=== PATIENT | male | born 1955 | race Native Hawaiian/Other Pacific Islander ===

== ENCOUNTER 2017-01-13 08:58 | Inpatient (IN) | payer OTHER ==
[2017-01-13] MEDS ORDERED: MORPHINE SULFATE 4 MG INJ IV ONE (09:17)
[2017-01-13] MEDS ORDERED: Zofran 4 MG/2 ML VIAL IV ONE (09:17)
[2017-01-13] MEDS ORDERED: Sodium Chloride 0.9% 1000 ML 1,000 ML IV STA (09:17)
[2017-01-13] MEDS ORDERED: PROTONIX 40 MG IV IV ONE ×2 (09:17→09:38)
--- NOTE | 2017-01-13 09:31 | ERPHSYRPT ---
- History of Present Illness Time Seen by Provider: 01/13/17 09:00 Historian: patient Exam Limitations: no limitations Patient Subjective Stated Complaint: patient has been having abdominal pain for a week now some bnausea with it Triage Nursing Assessment: pt alert and orientedx3, pupils perrla3, lung sounds clear diminished, bowel sounds active x 4, tenderness on palpation to right side and center near umbilicus. Timing/Duration: week(s) (1) Activities at Onset: none Quality: cramping Abdominal Pain Onset Location: periumbilical Severity of Pain-Max: moderate Severity of Pain-Current: moderate Modifying Factors: Improves With: other (drinks 2 beers daily) Allergies/Adverse Reactions: No Known Drug Allergies Allergy (Verified 01/13/17 09:23) Home Medications: No Home Meds 01/13/17 [History] Hx Tetanus, Diphtheria Vaccination/Date Given: Yes Hx Influenza Vaccination/Date Given: No Hx Pneumococcal Vaccination/Date Given: No Immunizations Up to Date: Yes - Past Medical History Pertinent Past Medical History: Yes Respiratory History: Other - Past Surgical History Past Surgical History: Yes Gastrointestinal: Appendectomy Musculoskeletal: Orthopedic Surgery Other Surgical History: operation on rifght lung, bilateral knee surgeries - Social History Smoking Status: Current every day smoker Drug Use: marijuana - Nursing Vital Signs Nursing Vital Signs: Initial Vital Signs Temperature 97.5 F Temperature Source Oral Pulse Rate 73 Respiratory Rate 18 Blood Pressure [] 135/75 Pain Intensity 2 - Physical Exam SpO2: 98 Oxygen Delivery: Room Air - Course Nursing assessment & vital signs reviewed: Yes - CT Exams Abdomen/Pelvis CT Interpretation: Tele-radiologist Report, Other (Mild fluid distention small bowel loops with circumferential wall thickening favoring enteritis. 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 Incidental COPD and chong L5 spondylolysis.) Ordered Tests: Active Orders 24 hr Category Date Time Status ACCUCHECK [Accucheck] STAT Care 01/13/17 10:29 Active IV Insertion STAT Care 01/13/17 09:17 Active NPO (ED) STAT Care 01/13/17 09:17 Active ABDOMEN AND PELVIS W CONTRAST [CT] Stat Exams 01/13/17 09:18 Completed CBC W DIFF Stat Lab 01/13/17 09:30 Completed CMP Stat Lab 01/13/17 09:30 Completed LIPASE Stat Lab 01/13/17 09:30 Completed PROTIME WITH INR Stat Lab 01/13/17 09:30 Completed UA Stat Lab 01/13/17 09:20 Completed Medication Summary Generic Name Dose Route Start Last Admin Trade Name Rigo PRN Reason Stop Dose Admin Meropenem 1 g/ Sodium Chloride 100 mls @ 200 mls/hr 01/13/17 11:59 IV 01/13/17 12:28 STAT ONE Discontinued Medications Generic Name Dose Route Start Last Admin Trade Name Rigo PRN Reason Stop Dose Admin Dextrose 25 ml 01/13/17 10:31 01/13/17 10:33 D50w 50 Ml Abboject IV 01/13/17 10:32 25 ml STAT ONE Administration Dextrose Confirm 01/13/17 10:33 D50w 50 Ml Abboject Administered 01/13/17 10:34 Dose 50 ml IV .STK-MED ONE Sodium Chloride 1,000 mls @ 999 mls/hr 01/13/17 09:17 01/13/17 09:42 Sodium Chloride 0.9% 1000 Ml IV 01/13/17 10:17 999 mls/hr .Q1H1M STA Administration Sodium Chloride Confirm 01/13/17 09:38 Sodium Chloride 0.9% 1000 Ml Administered 01/13/17 09:39 Dose 1,000 mls @ ud .ROUTE .STK-MED ONE Morphine Sulfate 4 mg 01/13/17 09:17 01/13/17 09:42 Morphine Sulfate 4 Mg Inj IV 01/13/17 09:18 4 mg STAT ONE Administration Morphine Sulfate Confirm 01/13/17 09:38 Morphine Sulfate 4 Mg Inj Administered 01/13/17 09:39 Dose 4 mg .ROUTE .STK-MED ONE Ondansetron HCl 4 mg 01/13/17 09:17 01/13/17 09:43 Zofran 4 Mg/2 Ml Vial IV 01/13/17 09:18 4 mg STAT ONE Administration Ondansetron HCl Confirm 01/13/17 09:38 Zofran 4 Mg/2 Ml Vial Administered 01/13/17 09:39 Dose 4 mg .ROUTE .STK-MED ONE Pantoprazole Sodium 40 mg 01/13/17 09:17 01/13/17 09:43 Protonix 40 Mg Iv IV 01/13/17 09:18 40 mg STAT ONE Administration Pantoprazole Sodium Confirm 01/13/17 09:38 Protonix 40 Mg Iv Administered 01/13/17 09:39 Dose 40 mg IV .STK-MED ONE Lab/Rad Data: Laboratory Result Diagrams 01/13/17 09:30 01/13/17 09:30 Laboratory Results 01/13/17 01/13/17 01/13/17 Range/Units 09:30 09:30 09:30 WBC 7.5 (4.0-10.5) K/mm3 RBC 4.97 (4.1-5.6) M/mm3 Hgb 15.5 (12.5-18.0) gm/dl Hct 46.8 (42-50) % MCV 94.2 (78-100) fl MCH 31.2 (26-32) pg MCHC 33.1 (32-36) g/dl RDW 13.8 (11.5-14.0) % Plt Count 217 (150-450) K/mm3 MPV 11.6 H (6-9.5) fl Gran % 49.6 (36.0-66.0) % Lymphocytes % 33.4 (24.0-44.0) % Monocytes % 13.4 H (0.0-12.0) % Eosinophils % 2.3 (0.00-5.0) % Basophils % 1.3 (0.0-0.4) % Basophils # 0.10 (0-0.4) INR 0.99 (0.8-3.0) Sodium 138 (136-145) mEq/L Potassium 4.3 (3.5-5.1) mEq/L Chloride 102 (98-107) mEq/L Carbon Dioxide 28.6 (21-32) mEq/L Anion Gap 12.1 (5-15) MEQ/L BUN 10 (9-20) mg/dL Creatinine 1.05 (0.55-1.30) mg/dl Estimated GFR > 60 ML/MIN Glucose 66 L (70-110) MG/DL Calcium 8.8 (8.5-10.1) mg/dL Total Bilirubin 0.4 (0.2-1.0) mg/dL AST 23 (15-37) U/L ALT 21 (12-78) U/L Alkaline Phosphatase 67 (46-116) U/L Serum Total Protein 7.6 (6.4-8.2) gm/dL Albumin 3.8 (3.4-5.0) g/dL Lipase 90 (73-393) U/L Ur Collection Type Urine Color (YELLOW) Urine Appearance (CLEAR) Urine pH (5-6) Ur Specific [place] (1.005-1.025) Urine Protein (Negative) Urine Glucose (UA) (NEGATIVE) mg/dL Urine Ketones (NEGATIVE) Urine Nitrite (NEGATIVE) Urine Bilirubin (NEGATIVE) Urine Urobilinogen (0-1) mg/dL Urine WBC (Auto) (NEGATIVE) Urine RBC (Auto) (0-5) Lee/ul Specimen Received 01/13/17 Range/Units 09:20 WBC (4.0-10.5) K/mm3 RBC (4.1-5.6) M/mm3 Hgb (12.5-18.0) gm/dl Hct (42-50) % MCV (78-100) fl MCH (26-32) pg MCHC (32-36) g/dl RDW (11.5-14.0) % Plt Count (150-450) K/mm3 MPV (6-9.5) fl Gran % (36.0-66.0) % Lymphocytes % (24.0-44.0) % Monocytes % (0.0-12.0) % Eosinophils % (0.00-5.0) % Basophils % (0.0-0.4) % Basophils # (0-0.4) INR (0.8-3.0) Sodium (136-145) mEq/L Potassium (3.5-5.1) mEq/L Chloride (98-107) mEq/L Carbon Dioxide (21-32) mEq/L Anion Gap (5-15) MEQ/L BUN (9-20) mg/dL Creatinine (0.55-1.30) mg/dl Estimated GFR ML/MIN Glucose (70-110) MG/DL Calcium (8.5-10.1) mg/dL Total Bilirubin (0.2-1.0) mg/dL AST (15-37) U/L ALT (12-78) U/L Alkaline Phosphatase (46-116) U/L Serum Total Protein (6.4-8.2) gm/dL Albumin (3.4-5.0) g/dL Lipase (73-393) U/L Ur Collection Type VOID Urine Color YELLOW (YELLOW) Urine Appearance CLEAR (CLEAR) Urine pH 5.0 (5-6) Ur Specific [place] 1.020 (1.005-1.025) Urine Protein NEGATIVE (Negative) Urine Glucose (UA) NEGATIVE (NEGATIVE) mg/dL Urine Ketones NEGATIVE (NEGATIVE) Urine Nitrite NEGATIVE (NEGATIVE) Urine Bilirubin NEGATIVE (NEGATIVE) Urine Urobilinogen 0.2 (0-1) mg/dL Urine WBC (Auto) NEGATIVE (NEGATIVE) Urine RBC (Auto) NEGATIVE (0-5) Lee/ul Specimen Received 01/13/17 0920 - Progress Progress: improved Discussed with : Manuel Fried (Consult placed. He will see him in am.) Will see patient in: hospital (full admit) Counseled pt/family regarding: lab results, diagnosis, need for follow-up, rad results - Departure Time of Disposition: 12:00 Departure Disposition: In-patient Admission Clinical Impression: Enteritis Condition: Stable Critical Care Time: Yes Critical Care Time(excluding separately billable procedures): 75-104 minutes
[2017-01-13 09:37] LABS: BASOPHIL % 1.3 % (0.0-0.4); Eosinophil % 2.3 % (0.00-5.0); Granulocytes % 49.6 % (36.0-66.0); Lymphocytes % 33.4 % (24.0-44.0); Mean Cell Volume 94.2 fl (78-100); Mean Corpuscular Hemoglobin 31.2 pg (26-32); Mean Platelet Volume 11.6 fl (6-9.5); Monocytes % 13.4 % (0.0-12.0); Platelet Count 217 K/mm3 (150-450); Red Blood Count 4.97 M/mm3 (4.1-5.6); Red Cell Distribution Width 13.8 % (11.5-14.0); White Blood Count 7.5 K/mm3 (4.0-10.5)
[2017-01-13 09:38] LABS: Collection Type VOID
[2017-01-13] MEDS ORDERED: MORPHINE SULFATE 4 MG INJ ONE (09:38)
[2017-01-13] MEDS ORDERED: Zofran 4 MG/2 ML VIAL ONE (09:38)
[2017-01-13] MEDS ORDERED: Sodium Chloride 0.9% 1000 ML 1,000 ML ONE (09:38)
[2017-01-13 09:39] LABS: COMPLETE URINE MICROSCOPIC? NO
[2017-01-13 09:55] LABS: INR 0.99 (0.8-3.0); PROTIME 11.1 SECONDS (8.83-12.87)
[2017-01-13 10:06] LABS: ALBUMIN 3.8 g/dL (3.4-5.0); ALKALINE PHOSPHATASE 67 U/L (46-116); ANION GAP 12.1 MEQ/L (5-15); BILIRUBIN,TOTAL 0.4 mg/dL (0.2-1.0); BLOOD UREA NITROGEN 10 mg/dL (9-20); CHLORIDE 102 mEq/L (98-107); Carbon Dioxide 28.6 mEq/L (21-32); Glucose 66 MG/DL (70-110); LIPASE 90 U/L (73-393); Potassium 4.3 mEq/L (3.5-5.1); SGOT/AST 23 U/L (15-37); SGPT/ALT 21 U/L (12-78); SODIUM 138 mEq/L (136-145); Total Protein 7.6 gm/dL (6.4-8.2)
[2017-01-13] MEDS ORDERED: D50W 50 ml Abboject IV ONE ×2 (10:31→10:33)
--- NOTE | 2017-01-13 11:26 | XRAY ---
Indication: Periumbilical pain and nausea for 5 days. Multiple contiguous axial images obtained through the abdomen and pelvis using 80 cc Isovue 370 contrast only. Comparison: None Lung bases demonstrates mild centrilobular emphysema bilaterally and left base dependent atelectasis. No consolidation or effusion. Heart is not enlarged. Noncontrasted stomach and bowel loops appear nonobstructed. Mild fluid distended small bowel loops throughout. Several of the small bowel loops in the left abdomen demonstrates circumferential wall thickening/enhancement. Findings favor enteritis. No free fluid/air. In the distal transverse duodenum, there is a intraluminal lipoma measuring at least 2.5 cm in length and 1 cm in thickness. Minimal sigmoid diverticulosis. Previous reported appendectomy. Remaining liver, gallbladder, pancreas, spleen, adrenal glands, kidneys, ureters, and bladder appear unremarkable. Mild aortoiliac calcifications. No AAA or pathologic retroperitoneal lymphadenopathy. Osseous structures intact with mild degenerative changes throughout the spine. Bilateral L5 spondylolysis without spondylolisthesis. Impression: 1. Mild fluid distended small bowel loops with circumferential wall thickening/enhancement favoring enteritis. Minimal sigmoid diverticulosis. 2. 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 3. Incidental pulmonary emphysema and bilateral L5 spondylolysis without spondylolisthesis. CT DI 11.57
[2017-01-13] MEDS ORDERED: Merrem 1 GM 1 G in Sodium Chloride 100ML MINI-BAG PLUS 100 ML IV ONE (11:59)
[2017-01-13] MEDS ORDERED: Zofran 4 MG/2 ML VIAL IV PRN (12:07)
[2017-01-13] MEDS ORDERED: MORPHINE SULFATE 2 MG INJ IV PRN (12:07)
[2017-01-13] MEDS ORDERED: Merrem 1 GM IV ONE (12:17)
[2017-01-13] MEDS ORDERED: Sodium Chloride 0.9% 100 ML IVPB 100 ML IV ONE (12:17)
[2017-01-13] MEDS: Sodium Chloride 0.9% 1000 ML 1,000 ML IV SCH ×2 (12:56→22:02)
--- NOTE | 2017-01-13 13:06 | PCM.HP ---
History of Present Illness - Chief Complaint Chief Complaint: Enteritis History of Present Illness: is a 61 year old male with no local physician who reported to the ER complaining of a 5 days history of worsening low abdominal pain. He denies vomiting or diarrhea, last bowel movement was yesterday and normal. He is unemployed, recently moved to the area from [place] and drinks about 2 beers daily. There has been no blood in the stool, he was found to have enteritis changes on CT in the ER but is quite concerned about being allowed to eat something. - Review of Systems Constitutional: No Fever, No Chills Respiratory: No Cough, No Short Of Breath Cardiac: No Chest Pain, No Edema, No Syncope Abdominal/Gastrointestinal: Abdominal Pain, No Nausea, No Vomiting, No Diarrhea Genitourinary Symptoms: No Dysuria Skin: No Rash All Other Systems: Reviewed and Negative Medications & Allergies Home Medications: Home Medication List No Home Meds 0 mg PO DAILY 01/13/17 [History Confirmed 01/13/17] Allergies/Adverse Reactions: Allergies Allergy/AdvReac Type Severity Reaction Status Date / Time No Known Drug Allergies Allergy Verified 01/13/17 09:23 - Past Medical History Past Medical History: Yes Neurological History: No Pertinent History ENT History: No Pertinent History Cardiac History: No Pertinent History Respiratory History: Other Endocrine Medical History: No Pertinent History Musculoskelatal History: No Pertinent History GI Medical History: No Pertinent History History: No Pertinent History Pyscho-Social History: No Pertinent History Male Reproductive Disorders: No Pertinent History - Past Surgical History Past Surgical History: Yes Neuro Surgical History: No Pertinent History Cardiac History: No Pertinent History Respiratory Surgery: No Pertinent History GI Surgical History: Appendectomy Genitourinary Surgical Hx: No Pertinent History Musculskeletal Surgical Hx: Orthopedic Surgery Male Surgical History: No Pertinent History Other Surgical History: operation on right lung, bilateral knee surgeries - Social History Smoking Status: Current every day smoker Alcohol: Daily Drug Use: marijuana - Physical Exam Vital Signs: Vital Signs - 24 hr Temp Pulse Resp BP Pulse Ox 01/13/17 12:06 98 01/13/17 11:59 73 18 135/75 97 01/13/17 11:34 76 18 144/76 96 01/13/17 09:49 78 20 130/69 96 01/13/17 08:59 97.5 F 90 20 153/80 98 General Appearance: no apparent distress, alert Respiratory Exam: normal breath sounds, lungs clear, No respiratory distress Cardiovascular Exam: regular rate/rhythm, normal heart sounds, normal peripheral pulses Gastrointestinal/Abdomen Exam: normal bowel sounds, tenderness (minimal to low abdomen), No guarding, No rebound Extremity Exam: normal inspection, normal range of motion, pelvis stable Skin Exam: normal color, warm, dry, No rash Assessment/Plan (1) Enteritis Current Visit: Yes Status: Acute Assessment & Plan: bland diet, received meropenem in ER, will observe. has a nonfocal exam. has a nonsurgical abdomen at this time. recommend conservative measures. no need for surgery consult at this time after examination by me in ER prior to going to floor. Code(s): K52.9 - NONINFECTIVE GASTROENTERITIS AND COLITIS, UNSPECIFIED (2) Abdominal pain Current Visit: Yes Status: Acute Code(s): R10.9 - UNSPECIFIED ABDOMINAL PAIN
[2017-01-13] MEDS: MORPHINE SULFATE 10 MG/ML IV PRN (19:47)
[2017-01-13] MEDS: Merrem 1 GM 1 G in Sodium Chloride 100ML MINI-BAG PLUS 100 ML IV SCH (21:58)
[2017-01-13] MEDS ORDERED: Ambien 10 MG PO SCH (22:00)
[2017-01-14 04:19] VITALS: O2SAT 93
[2017-01-14] MEDS: MORPHINE SULFATE 10 MG/ML IV PRN (04:37)
[2017-01-14] MEDS: Merrem 1 GM 1 G in Sodium Chloride 100ML MINI-BAG PLUS 100 ML IV SCH (05:25)
[2017-01-14 05:59] LABS: BASOPHIL % 0.6 % (0.0-0.4); Eosinophil % 3.8 % (0.00-5.0); Granulocytes % 51.1 % (36.0-66.0); Lymphocytes % 32.8 % (24.0-44.0); Mean Corpuscular Hemoglobin 31.1 pg (26-32); Mean Platelet Volume 11.9 fl (6-9.5); Monocytes % 11.7 % (0.0-12.0); Platelet Count 203 K/mm3 (150-450); Red Cell Distribution Width 13.8 % (11.5-14.0); White Blood Count 8.6 K/mm3 (4.0-10.5)
[2017-01-14 06:45] LABS: ALBUMIN 3.1 g/dL (3.4-5.0); ALKALINE PHOSPHATASE 49 U/L (46-116); ANION GAP 12.3 MEQ/L (5-15); BILIRUBIN,TOTAL 0.4 mg/dL (0.2-1.0); BLOOD UREA NITROGEN 11 mg/dL (9-20); CHLORIDE 105 mEq/L (98-107); Carbon Dioxide 26.5 mEq/L (21-32); Glucose 98 MG/DL (70-110); Potassium 4.2 mEq/L (3.5-5.1); SGOT/AST 19 U/L (15-37); SGPT/ALT 16 U/L (12-78); SODIUM 140 mEq/L (136-145); Total Protein 6.2 gm/dL (6.4-8.2)
[2017-01-14 07:14] VITALS: BP 164/72; PULSE 65
--- NOTE | 2017-01-14 08:22 | PCM.DS ---
Discharge Summary Date of Admission: 01/13/17 12:35 Admitting Physician: KAYLIN PANCHAL Consults: Consults on Case 01/13/17 12:07 Consult Surgery ROUTINE 01/13/17 13:37 Consult Surgery ROUTINE Primary Care Provider: NO FAMILY DOCTOR Allergies Allergies No Known Drug Allergies Allergy (Verified 01/13/17 09:23) Hospital Summary - Hospital Course Hospital Course: patient was admitted with low abdominal pain, vomiting x 1. ct showed enteritis , symptoms quickly have resolved. he is tolerating po intake, no vomiting or diarrhea. no pain - Vitals & Intake/Output Vital Signs: Vital Signs Temperature 97.8 F 01/14/17 07:14 Pulse Rate 65 01/14/17 07:14 Respiratory Rate 20 01/14/17 07:14 Blood Pressure 164/72 01/14/17 07:14 O2 Sat by Pulse Oximetry 93 L 01/14/17 07:14 Intake & Output: Intake & Output 01/11/17 01/12/17 01/13/17 01/14/17 11:59 11:59 11:59 11:59 Intake Total 2556 Balance 2556 Weight 68.946 kg - Lab Result Diagrams: 01/14/17 05:37 01/14/17 05:37 Lab Results-Last 24 Hrs: Accuchecks Date 01/13/17 Time 18:39 Accucheck Value: 138 Accucheck Value: 110 Lab Results-Last 24 Hours 01/14/17 01/14/17 Range/Units 05:37 05:37 WBC 8.6 (4.0-10.5) K/mm3 RBC 4.60 (4.1-5.6) M/mm3 Hgb 14.3 (12.5-18.0) gm/dl Hct 43.7 (42-50) % MCV 95.0 (78-100) fl MCH 31.1 (26-32) pg MCHC 32.7 (32-36) g/dl RDW 13.8 (11.5-14.0) % Plt Count 203 (150-450) K/mm3 MPV 11.9 H (6-9.5) fl Gran % 51.1 (36.0-66.0) % Lymphocytes % 32.8 (24.0-44.0) % Monocytes % 11.7 (0.0-12.0) % Eosinophils % 3.8 (0.00-5.0) % Basophils % 0.6 (0.0-0.4) % Basophils # 0.05 (0-0.4) Sodium 140 (136-145) mEq/L Potassium 4.2 (3.5-5.1) mEq/L Chloride 105 (98-107) mEq/L Carbon Dioxide 26.5 (21-32) mEq/L Anion Gap 12.3 (5-15) MEQ/L BUN 11 (9-20) mg/dL Creatinine 0.94 (0.55-1.30) mg/dl Estimated GFR > 60 ML/MIN Glucose 98 (70-110) MG/DL Calcium 8.0 L (8.5-10.1) mg/dL Total Bilirubin 0.4 (0.2-1.0) mg/dL AST 19 (15-37) U/L ALT 16 (12-78) U/L Alkaline Phosphatase 49 (46-116) U/L Serum Total Protein 6.2 L (6.4-8.2) gm/dL Albumin 3.1 L (3.4-5.0) g/dL Micro Results-Entire Visit: Accuchecks Date 01/13/17 Time 18:39 Accucheck Value: 138 Accucheck Value: 110 - Procedures and Test Procedures and Tests throughout Hospitalization: Therapy Orders & Screens 01/13/17 13:10 Smoking Cessation Education ONCE Comment: Diagnosis: Enteritis Smoking Status: Current every day smoker How long have you smoked: 30 Have you smoked in the past 12 months: Yes Approximately how many cigarettes per day: 20 Do you dip or chew tobacco: No Discharge Exam General Appearance: no apparent distress, alert Skin Exam: normal color, warm, dry Respiratory Exam: normal breath sounds, lungs clear, No respiratory distress Cardiovascular Exam: regular rate/rhythm, normal heart sounds Gastrointestinal/Abdomen Exam: soft, No tenderness, No mass Final Diagnosis/Problem List - Final Discharge Diagnosis/Problem (1) Enteritis Current Visit: Yes Status: Acute Assessment & Plan: resolved, no further abx needed. has benign exam and normal wbc (2) Abdominal pain Current Visit: Yes Status: Acute Assessment & Plan: resolved - Discharge Disposition: Home, Self-Care Condition: Stable Prescriptions: No Action No Home Meds 0 mg PO DAILY Follow up with: KAYLIN PANCHAL MD [ACTIVE STAFF] - 1 Week
[2017-01-14] MEDS ORDERED: PROTONIX 40 MG IV IV SCH (10:00)
== END 2017-01-14 10:30 | disposition home or self-care (01) | DRG 392 ==
LOC: ED 08:58 → MED SURG 12:35
PROVIDERS: ADMIT Family Medicine; ATTEND Family Medicine
DX: K52.9 Noninfective gastroenteritis and colitis, unspecified (principal); Z72.0 Tobacco use
CPT/HCPCS: 36000; 36415; 74177; 80053; 81002; 82962; 83036; 83690; 85025; 85610; 96360; 96365; 96374; 96375; 99285; J2270; J2405; A9270-GY

== ENCOUNTER 2018-07-14 09:29 | Emergency (ER) | payer BC, OTHER ==
[2018-07-14 10:16] VITALS: BP 129/110; PULSE 90; O2SAT 99
--- NOTE | 2018-07-14 10:37 | ERPHSYRPT ---
- History of Present Illness Time Seen by Provider: 07/14/18 10:00 Source: patient, family Exam Limitations: no limitations Patient Subjective Stated Complaint: here for abcess to rectum for 4 days, no fever Triage Nursing Assessment: pt alert, walked in, resp easy, skin w/d/p. has reddness and drainage to rectum area with foul smell Physician History: 62 y/o white male presents with an enlarging, tender left buttock abscess with drainage. pt has never had anything like this before. pt is not diabetic. Timing/Duration: day(s) (4) Quality: painful Severity: moderate Location: other (left buttocke) Possible Causes: no cause identified Modifying Factors: Improves With: other (nothing) Associated Symptoms: change in skin texture, swelling/mass/lumps, No difficulty breathing Allergies/Adverse Reactions: No Known Drug Allergies Allergy (Verified 07/14/18 10:09) Home Medications: Alprazolam 0.5 mg [xanAX 0.5 MG] 0.5 mg BID 07/14/18 [History] Hx Tetanus, Diphtheria Vaccination/Date Given: Yes Hx Influenza Vaccination/Date Given: Yes Hx Pneumococcal Vaccination/Date Given: No - Review of Systems Constitutional: No Symptoms, No Fever, No Chills Eyes: No Symptoms, No Discharge, No Eye Pain Ears, Nose, & Throat: No Symptoms, No Ear Pain, No Ear Discharge Respiratory: No Symptoms, No Cough, No Dyspnea, No Stridor, No Wheezing Cardiac: No Symptoms, No Chest Pain, No Edema, No Palpitations, No Syncope Abdominal/Gastrointestinal: No Symptoms, No Abdominal Pain, No Nausea, No Vomiting, No Diarrhea Genitourinary Symptoms: No Symptoms, No Dysuria, No Frequency, No Hematuria Musculoskeletal: No Symptoms, No Back Pain, No Neck Pain, No Deformity, No Fall , No Injury Skin: Other (left buttock abscess) Neurological: No Symptoms, No Dizziness, No Headache Psychological: Anxiety, No Alcohol Abuse, No Drug Abuse Endocrine: No Symptoms Hematologic/Lymphatic: No Symptoms Immunological/Allergic: No Symptoms All Other Systems: Reviewed and Negative - Past Medical History Pertinent Past Medical History: Yes Neurological History: No Pertinent History ENT History: No Pertinent History Cardiac History: No Pertinent History Respiratory History: Other Endocrine Medical History: No Pertinent History Musculoskeletal History: No Pertinent History GI Medical History: No Pertinent History History: No Pertinent History Psycho-Social History: Anxiety Male Reproductive Disorders: No Pertinent History - Past Surgical History Past Surgical History: Yes Neuro Surgical History: No Pertinent History Cardiac: No Pertinent History Respiratory: No Pertinent History Gastrointestinal: Appendectomy Genitourinary: No Pertinent History Musculoskeletal: Orthopedic Surgery Male Surgical History: No Pertinent History Other Surgical History: operation on right lung, bilateral knee surgeries - Social History Smoking Status: Current every day smoker How long have you smoked: 30 Exposure to second hand smoke: Yes Drug Use: none Patient Lives Alone: No - Nursing Vital Signs Nursing Vital Signs: Initial Vital Signs Temperature 97.9 F 07/14/18 10:11 Pulse Rate 90 07/14/18 10:11 Respiratory Rate 16 07/14/18 10:11 Blood Pressure 129/110 07/14/18 10:11 O2 Sat by Pulse Oximetry 99 07/14/18 10:11 Pain Scale Pain Intensity 8 - Physical Exam General Appearance: mild distress, alert, anxiety Eye Exam: PERRL/EOMI Ears, Nose, Throat Exam: normal ENT inspection Neck Exam: normal inspection, non-tender, supple, full range of motion Respiratory Exam: normal breath sounds, lungs clear, airway intact, No chest tenderness, No respiratory distress, No accessory muscle use, No rhonchi, No wheezing, No stridor Cardiovascular Exam: regular rate/rhythm, normal heart sounds, normal peripheral pulses Gastrointestinal/Abdomen Exam: soft, normal bowel sounds, No tenderness, No guarding, No rebound Rectal Exam: not done Back Exam: normal inspection, normal range of motion, No CVA tenderness, No vertebral tenderness Extremity Exam: normal inspection, normal range of motion, pelvis stable Neurologic Exam: alert, oriented x 3, cooperative, literary writer II-XII nml as tested Skin Exam: other ([id number] left buttock abscess ) SpO2 Interpretation: normal SpO2: 99 Oxygen Delivery: Room Air Procedures - Incision and Drainage Timeout: Performed Site: left buttock Blade Size: 11 I & D Procedure: betadine prep Results: moderate amount pus Progress: pt ino well. 1/2 " iodofoam packing gauze placed. pt ino well. no complications - Course Nursing assessment & vital signs reviewed: Yes - Progress Progress: improved Counseled pt/family regarding: diagnosis, need for follow-up - Departure Time of Disposition: 10:39 Departure Disposition: Home Clinical Impression: Left buttock abscess Condition: Stable Critical Care Time: No Referrals: CHARI ALANIZ MD [Primary Care Provider] - Additional Instructions: remove packing tonight. sitz bath with warm soapy water alternate with warm epsom salts bath 2 times daily. remove packing gauze prior to each bath and replace after each bath. cover site with peripad. follow up with primary doctor for further management Prescriptions: Oxycodone HCl/Acetaminophen [Percocet 5-325 mg Tablet] 1 each PO Q6H PRN PRN # 12 tablet MDD 4 PRN Reason: Pain Smz/Tmp Ds Tablet [Bactrim Ds Tablet] 1 udtab PO BID #14 tablet
[2018-07-14] MEDS ORDERED: OXYCODONE-ACETAMINOPHEN 10-325 PO STA (10:38)
[2018-07-14] MEDS ORDERED: Rocephin 1000 MG INJ IM ONE (10:38)
[2018-07-14] MEDS ORDERED: BACTRIM DS TABLET PO STA (10:39)
[2018-07-14] MEDS ORDERED: Rocephin 1000 MG INJ ONE (10:42)
[2018-07-14] MEDS ORDERED: BACTRIM DS TABLET PO ONE (10:42)
[2018-07-14] MEDS ORDERED: OXYCODONE-ACETAMINOPHEN 10-325 ONE (10:42)
[2018-07-14] MEDS ORDERED: XYLOCAINE 1% HCL 20 ML MDV ONE (10:43)
== END 2018-07-14 11:31 | disposition home or self-care (01) ==
LOC: ED 09:29
DX: L02.31 Cutaneous abscess of buttock (principal); R20.8 Other disturbances of skin sensation
CPT/HCPCS: 10060; 87070; 87077; 87186; 96372; 99283; J0696; A9270-GY

== ENCOUNTER 2018-09-12 08:30 | Day surgery (SDC) | payer BC ==
--- NOTE | 2018-09-12 08:06 | HP ---
DATE OF SURGERY: 09/12/2018 HISTORY OF PRESENT ILLNESS: The patient is a 63 year-old with mid upper abdominal pain, has a lot of loose stools. No bloody stools. No dysphasia. Stomach cancer in the mother and brother as well as lung cancer. Nephew had some Crohn's disease. The patient denies any pain. Given his abdominal pain, upper abdominal pain he is in need for screening colonoscopy as initial work up. PAST MEDICAL HISTORY: He denies any chronic illnesses. PAST SURGICAL HISTORY: Lung surgery, knee surgery, appendectomy. MEDICATIONS: Xanax. ALLERGIES: NKDA. FAMILY HISTORY: As mentioned above. SOCIAL HISTORY: One pack per day smoker, denies alcohol abuse. He does drink some alcohol though. REVIEW OF SYSTEMS: Twelve systems reviewed per admission assessment. No chest pain or palpitations other systems negative or noncontributory as above and per preadmission questionnaire. PHYSICAL EXAMINATION: GENERAL: No acute distress. HEENT: Sclerae nonicteric. NECK: No JVD. CHEST: Equal excursion, nonlabored breathing. CVS: Regular rate and rhythm. ABDOMEN: Soft. No peritoneal signs. EXTREMITIES: No significant edema. NEURO: Alert, oriented, moving extremities symmetrically. No gross motor deficits noted. IMPRESSION: History of some upper abdominal pain in need of upper endoscopy as well as he is also in need of screening colonoscopy. Risks and benefits explained in detail including but not limited to bleeding or infection, risk of bowel injury or perforation possibly requiring open procedure, small risk of missed or nondiagnosis or incomplete exam possibly requiring barium enema, other studies or procedures, general risk of anesthesia or sedation but not limited to. He understands and agrees to the planned procedure and will proceed with EGD and colonoscopy as an outpatient. If that workup is negative may need some gallbladder work up or other work up. He understands and agrees to the planned procedure, will proceed with EGD and colonoscopy under MAC anesthesia as an outpatient.
[2018-09-12] MEDS ORDERED: Ketamine HCl 50 MG/ML IV ONE (08:31)
[2018-09-12] MEDS ORDERED: DIPRIVAN 200 MG/20 ML IV ONE (08:31)
[2018-09-12] MEDS ORDERED: Lactated Ringers 1,000 ML IV SCH (09:00)
[2018-09-12] MEDS ORDERED: Lactated Ringers 1,000 ML IV ONE (10:56)
[2018-09-12 12:05] VITALS: BP 156/76; PULSE 69; O2SAT 98
--- NOTE | 2018-09-12 14:33 | OP ---
SURGERY DATE/TIME: 09/12/2018 1046 PREOPERATIVE DIAGNOSES: 1) History of upper abdominal pain. Family history of stomach cancer. 2) Need for screening colonoscopy. 3) Hiatal hernia repair years ago. POSTOPERATIVE DIAGNOSES: 1) Chronic gastritis. 2) Duodenal appendage or question lipoma. 3) Diverticulosis. 4) Small internal and external hemorrhoids. 5) Small polyp removed in piecemeal fashion distal descending colon. 6) Small raised lesion versus hyperplastic lesion rectum. 7) Tortuous colon. 8) Fair bowel prep. PROCEDURES: 1) EGD with cold biopsy of the small bowel to evaluate for sprue. 2) Cold biopsy of the question of duodenal appendage or lipoma. 3) Cold biopsy antrum for Helicobacter pylori. 4) Colonoscopy to terminal ileum. 5) Retrograde ileoscopy. 6) Hot biopsy piecemeal removal x2 pieces, small distal descending colon polyp. 7) Hot biopsy removal of small raised lesion rectum x2. SURGEON: Dr. Adan Kc. ANESTHESIA: MAC. ESTIMATED BLOOD LOSS: Minimal. INDICATIONS: As noted above. Risks and benefits explained in detail and not limited to and consent obtained. DESCRIPTION OF PROCEDURE AND FINDINGS: The patient is taken to the operating room. MAC anesthesia introduced. After official time out and no disagreement with planned procedure, a bite block positioned. Video gastroscope easily passed down the esophagus through the patent pylorus to the junction of the second and third portion of the duodenum. In the duodenum there were no signs of any inflammation or ulcers. A cold biopsy is taken to evaluate celiac sprue given his symptoms. There was what appeared to be appendage or lipomatous appendage pulling itself down the duodenum or not was unclear. A cold biopsy is taken for further evaluation. The scope pulled back in the stomach. Mild chronic gastritis was noted. Cold biopsy taken to evaluate for Helicobacter pylori. There were no signs of any ulcers, masses or other mucosal lesions. On retroflex the gastroesophageal junction was snug against the scope. There were no signs of any large hiatal hernia. Scope is straightened. Gastroesophageal junction was about 40 cm. Z-line was crisp. No signs of Sarmiento's. No signs of any lora esophagitis. No signs of any other mucosal lesions on withdrawal of the scope. Attention is then turned to colonoscopy. Digital rectal exam did not reveal any rectal masses. He did have some internal and external hemorrhoids. Video colonoscope inserted and passed up through the very tortuous sigmoid, descending, transverse and ascending colon with a bunch of switch backs up around to the right lower quadrant to the cecum and up to the terminal ileum. Retrograde ileoscopy performed which was grossly unremarkable. There were no signs of any inflammatory bowel disease or masses. Terminal ileum is grossly unremarkable. The scope is carefully withdrawn. Prep overall was fair. There was some liquidy semi-solid stool that was able to be suction-irrigated as clear as possible. The scope slowly and carefully withdrawn. There were no signs of any large polyps, masses or obstructing lesions. In the distal descending colon there was a small 3 mm polyp that was removed in two pieces with hot biopsy forceps with brief bursts of cautery. Good hemostasis noted. Otherwise he had a few diverticula, mild diverticulosis. The scope pulled back in the rectum. A couple small raised lesions versus hyperplastic lesions removed with hot biopsy forceps with brief bursts of cautery. Good hemostasis noted. There were no signs of any large polyps, masses or obstructing lesions. The scope was withdrawn. Will await final path results as may need to consider CT scan to evaluate this duodenal appendage for further evaluation. I will see if there is family available to discuss the findings with.
== END 2018-09-12 12:05 | disposition home or self-care (01) ==
LOC: SDC 08:30
PROVIDERS: ATTEND Surgery
DX: K29.50 Unspecified chronic gastritis without bleeding (principal); Z80.0 Family history of malignant neoplasm of digestive organs; K44.9 Diaphragmatic hernia without obstruction or gangrene; K57.90 Diverticulosis of intestine, part unspecified, without perforation or abscess without bleeding; K64.4 Residual hemorrhoidal skin tags; K64.8 Other hemorrhoids; K63.5 Polyp of colon; K63.9 Disease of intestine, unspecified; Q43.8 Other specified congenital malformations of intestine; R10.10 Upper abdominal pain, unspecified; Z80.1 Family history of malignant neoplasm of trachea, bronchus and lung; Z72.0 Tobacco use
CPT/HCPCS: 88305; 94250; J2704

== ENCOUNTER 2018-10-14 03:04 | Emergency (ER) | payer BC ==
[2018-10-14] MEDS ORDERED: Zofran 4 MG/2 ML VIAL IV ONE (03:34)
[2018-10-14] MEDS ORDERED: Sodium Chloride 0.9% 1000 ML 1,000 ML IV STA ×2 (03:34→06:03)
--- NOTE | 2018-10-14 03:34 | ERPHSYRPT ---
- History of Present Illness Time Seen by Provider: 10/14/18 03:33 Historian: patient, family Exam Limitations: no limitations Patient Subjective Stated Complaint: vomiting/abdominal pain Triage Nursing Assessment: Patient ambulated into ED and transferred self to bed. Patient A+O X 3. Patient complains of vomitting for 4 days and unable to keep anything down. Patient has had a productive cough producing thick white mucus for 3 days. Patient has right sided abdominal pain 6/10. Patient has also been having diarrhea for 4 days. Patient states he has had trouble with his stomach and having diarrhea so Dr. Alaniz suggested a colonoscopy. Patient had colonoscopy on September [address] Kc and polps were removed. Patient was on atb for 2 weeks after colonscopy. Patient has apointment today with Dr. Finley today. Lungs sounds clear a/p chong. Stomach soft and round with Bs present X 4. Physician History: 63 y/o white male with diarrhea and abd pain. additionally pt has had a cough. sx present for a few days. pt has follow up appt with gi specialist today after colonoscopy and bx to go over bx results. Timing/Duration: day(s) (3 to 4 days), gradual onset, worse Abdominal Pain Onset Location: RUQ, RLQ Pain Radiation: no radiation Severity of Pain-Max: moderate Severity of Pain-Current: moderate Modifying Factors: Improves With: vomiting Associated Symptoms: diarrhea, loss of appetite, nausea, vomiting Previous symptoms: no prior history Allergies/Adverse Reactions: No Known Drug Allergies Allergy (Verified 10/14/18 03:23) Home Medications: Alprazolam 0.5 mg [xanAX 0.5 MG] 0.5 mg BID 07/14/18 [History] Hx Tetanus, Diphtheria Vaccination/Date Given: Yes Hx Influenza Vaccination/Date Given: Yes Hx Pneumococcal Vaccination/Date Given: No Immunizations Up to Date: Yes - Review of Systems Constitutional: No Symptoms Eyes: No Symptoms Ears, Nose, & Throat: No Symptoms Respiratory: No Symptoms Cardiac: No Symptoms Abdominal/Gastrointestinal: Abdominal Pain (right side upper and lower), Nausea , Vomiting, Diarrhea, Appetite Changes Genitourinary Symptoms: No Symptoms Musculoskeletal: No Symptoms Skin: No Symptoms Neurological: No Symptoms Psychological: No Symptoms Endocrine: No Symptoms Hematologic/Lymphatic: No Symptoms Immunological/Allergic: No Symptoms All Other Systems: Reviewed and Negative - Past Medical History Pertinent Past Medical History: Yes Neurological History: No Pertinent History ENT History: No Pertinent History Cardiac History: No Pertinent History Respiratory History: COPD, Other Endocrine Medical History: No Pertinent History Musculoskeletal History: No Pertinent History GI Medical History: No Pertinent History History: No Pertinent History Psycho-Social History: Anxiety Male Reproductive Disorders: No Pertinent History - Past Surgical History Past Surgical History: Yes Neuro Surgical History: No Pertinent History Cardiac: No Pertinent History Respiratory: Other Gastrointestinal: Appendectomy Genitourinary: No Pertinent History Musculoskeletal: Orthopedic Surgery Male Surgical History: No Pertinent History Other Surgical History: operation on right lung to remove nodules(benign) bilateral knee surgeries, right shoulder surgery - Social History Smoking Status: Current every day smoker How long have you smoked: 50 years Exposure to second hand smoke: Yes Drug Use: none Patient Lives Alone: No - Nursing Vital Signs Nursing Vital Signs: Initial Vital Signs Temperature 98.3 F 10/14/18 03:09 Pulse Rate 91 H 10/14/18 03:09 Respiratory Rate 20 10/14/18 03:09 Blood Pressure 150/70 10/14/18 03:09 O2 Sat by Pulse Oximetry 95 10/14/18 03:09 Pain Scale Pain Intensity 6 - Physical Exam General Appearance: mild distress, alert, anxiety Eye Exam: PERRL/EOMI Ears, Nose, Throat Exam: normal ENT inspection, moist mucous membranes Neck Exam: normal inspection, non-tender, supple, full range of motion Respiratory Exam: normal breath sounds, lungs clear, airway intact, No chest tenderness, No respiratory distress, No accessory muscle use, No rhonchi, No wheezing, No stridor Cardiovascular Exam: regular rate/rhythm, normal heart sounds Gastrointestinal/Abdomen Exam: soft, normal bowel sounds, tenderness (mild diffuse), guarding Rectal Exam: not done Back Exam: normal inspection, normal range of motion, No CVA tenderness, No vertebral tenderness Extremity Exam: normal inspection, normal range of motion, pelvis stable Neurologic Exam: alert, oriented x 3, cooperative, 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 Skin Exam: normal color Lymphatic Exam: No adenopathy SpO2 Interpretation: borderline oxygenation SpO2: 95 Oxygen Delivery: Room Air Ordered Tests: Active Orders 24 hr Category Date Time Status IV Insertion STAT Care 10/14/18 03:34 Active ABDOMEN AND PELVIS W/0 CONTRAS [CT] Stat Exams 10/14/18 03:59 Taken CHEST 1 VIEW (PORTABLE) Stat Exams 10/14/18 04:11 Taken AMYLASE Stat Lab 10/14/18 03:45 Completed CBC W DIFF Stat Lab 10/14/18 04:00 Completed CMP Stat Lab 10/14/18 03:45 Completed LIPASE Stat Lab 10/14/18 03:45 Completed Lactic Acid Stat Lab 10/14/18 04:00 Completed Medication Summary Generic Name Dose Route Start Last Admin Trade Name Freq PRN Reason Stop Dose Admin Sodium Chloride 1,000 mls @ 999 mls/hr 10/14/18 06:03 Sodium Chloride 0.9% 1000 Ml IV 10/14/18 07:03 .Q1H1M STA Discontinued Medications Generic Name Dose Route Start Last Admin Trade Name Freq PRN Reason Stop Dose Admin Sodium Chloride 1,000 mls @ 999 mls/hr 10/14/18 03:34 10/14/18 03:41 Sodium Chloride 0.9% 1000 Ml IV 10/14/18 04:34 999 mls/hr .Q1H1M STA Administration Sodium Chloride Confirm 10/14/18 03:39 Sodium Chloride 0.9% 1000 Ml Administered 10/14/18 03:40 Dose 1,000 mls @ ud .ROUTE .STK-MED ONE Ondansetron HCl 4 mg 10/14/18 03:34 10/14/18 03:41 Zofran 4 Mg/2 Ml Vial IV 10/14/18 03:35 4 mg STAT ONE Administration Ondansetron HCl Confirm 10/14/18 03:39 Zofran 4 Mg/2 Ml Vial Administered 10/14/18 03:40 Dose 4 mg .ROUTE .STK-MED ONE Oseltamivir Phosphate 75 mg 10/14/18 06:02 Tamiflu 75mg Capsule PO 10/14/18 06:03 STAT ONE Lab/Rad Data: Laboratory Result Diagrams 10/14/18 04:00 10/14/18 03:45 Laboratory Results 10/14/18 10/14/18 10/14/18 Range/Units 04:20 04:00 04:00 WBC 8.1 (4.0-10.5) K/mm3 RBC 4.98 (4.1-5.6) M/mm3 Hgb 15.6 (12.5-18.0) gm/dl Hct 47.6 (42-50) % MCV 95.6 (78-100) fl MCH 31.3 (26-32) pg MCHC 32.8 (32-36) g/dl RDW 13.9 (11.5-14.0) % Plt Count 199 (150-450) K/mm3 MPV 11.8 H (6-9.5) fl Gran % 76.7 H (36.0-66.0) % Eos # (Auto) 0.02 (0-0.5) Absolute Lymphs (auto) 0.77 L (1.0-4.6) Absolute Monos (auto) 1.07 (0.0-1.3) Lymphocytes % 9.5 L (24.0-44.0) % Monocytes % 13.2 H (0.0-12.0) % Eosinophils % 0.2 (0.00-5.0) % Basophils % 0.4 (0.0-0.4) % Absolute Granulocytes 6.23 (1.4-6.9) Basophils # 0.03 (0-0.4) Sodium (137-145) mmol/L Potassium (3.5-5.1) mmol/L Chloride (98-107) mmol/L Carbon Dioxide (22-30) mmol/L Anion Gap (5-15) MEQ/L BUN (9-20) mg/dL Creatinine (0.66-1.25) mg/dL Estimated GFR ML/MIN Glucose (74-106) mg/dL Lactic Acid 1.1 (0.4-2.0) Calcium (8.4-10.2) mg/dL Total Bilirubin (0.2-1.3) mg/dL AST (17-59) U/L ALT (0-50) U/L Alkaline Phosphatase (38-126) U/L Serum Total Protein (6.3-8.2) g/dL Albumin (3.5-5.0) g/dL Amylase (30-110) U/L Lipase (23-300) U/L Influenza Type A Ag POSITIVE (NEGATIVE) Influenza Type B Ag NEGATIVE (NEGATIVE) RSV (PCR) NEGATIVE (Negative) Group A Strep Antibody NEGATIVE (NEGATIVE) 10/14/18 Range/Units 03:45 WBC (4.0-10.5) K/mm3 RBC (4.1-5.6) M/mm3 Hgb (12.5-18.0) gm/dl Hct (42-50) % MCV (78-100) fl MCH (26-32) pg MCHC (32-36) g/dl RDW (11.5-14.0) % Plt Count (150-450) K/mm3 MPV (6-9.5) fl Gran % (36.0-66.0) % Eos # (Auto) (0-0.5) Absolute Lymphs (auto) (1.0-4.6) Absolute Monos (auto) (0.0-1.3) Lymphocytes % (24.0-44.0) % Monocytes % (0.0-12.0) % Eosinophils % (0.00-5.0) % Basophils % (0.0-0.4) % Absolute Granulocytes (1.4-6.9) Basophils # (0-0.4) Sodium 138 (137-145) mmol/L Potassium 3.9 (3.5-5.1) mmol/L Chloride 105 (98-107) mmol/L Carbon Dioxide 21 L (22-30) mmol/L Anion Gap 16.7 H (5-15) MEQ/L BUN 14 (9-20) mg/dL Creatinine 1.00 (0.66-1.25) mg/dL Estimated GFR > 60.0 ML/MIN Glucose 122 H (74-106) mg/dL Lactic Acid (0.4-2.0) Calcium 9.1 (8.4-10.2) mg/dL Total Bilirubin 0.70 (0.2-1.3) mg/dL AST 29 (17-59) U/L ALT 26 (0-50) U/L Alkaline Phosphatase 86 (38-126) U/L Serum Total Protein 7.7 (6.3-8.2) g/dL Albumin 4.5 (3.5-5.0) g/dL Amylase 56 (30-110) U/L Lipase 17 L (23-300) U/L Influenza Type A Ag (NEGATIVE) Influenza Type B Ag (NEGATIVE) RSV (PCR) (Negative) Group A Strep Antibody (NEGATIVE) - Progress Progress: improved, pain not gone completely, re-examined Progress Note: 10/14/18 06:16 pt states he is feeling better. 10/14/18 06:17 ct scan abd/pelvis- no acute intraabd process Counseled pt/family regarding: lab results, diagnosis, need for follow-up, rad results - Departure Time of Disposition: 06:20 Departure Disposition: Home Clinical Impression: Abdominal pain, Vomiting and diarrhea, Influenza A Condition: Stable Critical Care Time: No Referrals: CHARI ALANIZ MD [Primary Care Provider] - Additional Instructions: drink plenty of fluids. take medications as prescribed. follow up with primary doctor for further management Prescriptions: Ondansetron HCl [Zofran] 4 mg PO TID PRN #10 tablet PRN Reason: Nausea/Vomiting Oseltamivir 75 mg [Tamiflu 75MG Capsule] 75 mg PO BID #10 cap
[2018-10-14] MEDS ORDERED: Sodium Chloride 0.9% 1000 ML 1,000 ML ONE ×2 (03:39→06:17)
[2018-10-14] MEDS ORDERED: Zofran 4 MG/2 ML VIAL ONE (03:39)
[2018-10-14 04:03] LABS: BASOPHIL % 0.4 % (0.0-0.4); Basophil (Absolute #) 0.03 (0-0.4); Eosinophil % 0.2 % (0.00-5.0); Eosinophil (Absolute #) 0.02 (0-0.5); Granulocyte Absolute (ANC) 6.23 (1.4-6.9); Granulocytes % 76.7 % (36.0-66.0); Hematocrit 47.6 % (42-50); Hemoglobin 15.6 gm/dl (12.5-18.0); Lymphocyte (Absolute #) 0.77 (1.0-4.6); Lymphocytes % 9.5 % (24.0-44.0); Mean Cell Volume 95.6 fl (78-100); Mean Corpuscular Hemoglobin 31.3 pg (26-32); Mean Corpuscular Hgb Concent. 32.8 g/dl (32-36); Mean Platelet Volume 11.8 fl (6-9.5); Monocyte (Absolute #) 1.07 (0.0-1.3); Monocytes % 13.2 % (0.0-12.0); Platelet Count 199 K/mm3 (150-450); Red Blood Count 4.98 M/mm3 (4.1-5.6); Red Cell Distribution Width 13.9 % (11.5-14.0); White Blood Count 8.1 K/mm3 (4.0-10.5)
[2018-10-14 04:05] LABS: ALBUMIN 4.5 g/dL (3.5-5.0); ALKALINE PHOSPHATASE 86 U/L (38-126); AMYLASE 56 U/L (30-110); ANION GAP 16.7 MEQ/L (5-15); BLOOD UREA NITROGEN 14 mg/dL (9-20); CHLORIDE 105 mmol/L (98-107); Calcium 9.1 mg/dL (8.4-10.2); Carbon Dioxide 21 mmol/L (22-30); Glucose 122 mg/dL (74-106); LIPASE 17 U/L (23-300); Potassium 3.9 mmol/L (3.5-5.1); SGOT/AST 29 U/L (17-59); SGPT/ALT 26 U/L (0-50); SODIUM 138 mmol/L (137-145); Total Protein 7.7 g/dL (6.3-8.2)
[2018-10-14 05:36] LABS: INFLUENZA A POSITIVE (NEGATIVE); INFLUENZA B NEGATIVE (NEGATIVE); RESPIRATORY SYNCTIAL VIRUS NEGATIVE (Negative)
[2018-10-14] MEDS ORDERED: Tamiflu 75MG Capsule PO ONE ×2 (06:02→06:19)
[2018-10-14 07:06] VITALS: BP 144/86; PULSE 90; O2SAT 98
--- NOTE | 2018-10-14 09:20 | XRAY ---
Indication: Right upper quadrant abdominal pain. Multiple contiguous axial images obtained through the abdomen and pelvis without contrast as ordered. Comparison: January 13, 2017. Lung bases again demonstrates mild pulmonary emphysema without infiltrate or effusion. Heart is not enlarged. Noncontrasted stomach and bowel loops appear nonobstructed. Stable transverse duodenal lipoma and appendectomy. Stable sigmoid diverticulosis. No free fluid/air. Gallbladder mildly distended without gallstones or biliary distention. Remaining liver, pancreas, spleen, adrenal glands, kidneys, ureters, and bladder appear unremarkable for noncontrast exam. Stable mild aortoiliac calcifications without AAA. Osseous structures intact again with mild degenerative changes throughout the spine. 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 No ventral or inguinal hernias. Impression: 1. Stable duodenal lipoma, sigmoid diverticulosis, and L5 spondylolysis without spondylolisthesis. 2. Mildly distended gallbladder without gallstones. Gallbladder sonogram may yield further information if clinically warranted. 3. No acute intra-abdominal/pelvic abnormalities on this noncontrast exam. Comment: Preliminary interpretation was made by [facility]. No critical discrepancy. CT DI 12.26
--- NOTE | 2018-10-14 09:20 | XRAY ---
Indication: Cough. Comparison: None Portable chest demonstrates COPD and incidental calcified granulomas. Remaining heart and lungs unremarkable. Bony thorax intact with mild degenerative changes.
== END 2018-10-14 07:16 | disposition home or self-care (01) ==
LOC: ED 03:04
DX: R10.31 Right lower quadrant pain (principal); R10.11 Right upper quadrant pain; R19.7 Diarrhea, unspecified; J09.X2 Influenza due to identified novel influenza A virus with other respiratory manifestations; R11.2 Nausea with vomiting, unspecified
CPT/HCPCS: 36000; 36415; 71045; 74176; 80053; 82150; 83605; 83690; 85025; 87631; 87651; 96360; 96361; 96374; 99284; J2405; A9270-GY

== ENCOUNTER 2019-01-17 17:23 | Emergency (ER) | payer BC ==
[2019-01-17] MEDS ORDERED: Sodium Chloride 0.9% 1000 ML 1,000 ML IV STA (17:41)
[2019-01-17] MEDS ORDERED: Sodium Chloride 0.9% 1000 ML 1,000 ML ONE ×2 (17:52→20:39)
--- NOTE | 2019-01-17 17:56 | ERPHSYRPT ---
- History of Present Illness Time Seen by Provider: 01/17/19 17:41 Historian: patient, family Patient Subjective Stated Complaint: Pt states "I had belly surgery 10 days ago and I was trying to lay down and I felt like I needed to go to the bathroom and I was vomiting in the bathroom and I think I passed out. My is a bit of a worryer and she called 911.". Medic states "He was unresponsive when we got there and had constricted pupils, We gave 2 mg narcan and he woke up. He has not vomited while we had him or complained of any nausea." Triage Nursing Assessment: Pt arrived via [facility] and placed in room 3. Pt presented alert and oriented X 3, skin pwd Pt has beba in his abdomen, incision intact, not swollen, slightly red. Pt in no apparent respiratory distress. Physician History: 63-year-old white male brought by medics with complaint of vomiting dark material apparently had been sitting on the stool as well was having melanotic stools he apparently was noted by to become unresponsive. Medics noted the patient had pinpoint pupils and somewhat unresponsive patient came around with Narcan. Patient does state that he has been having dark stools since Wednesday 3 days ago he is also noted to have vomiting since today with dark material. He denies any chest pain. 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 Past medical history includes COPD, anxiety Past surgical history includes operation on right lung removed benign nodules bilateral knee surgery right shoulder surgery benign tumor removed from the patient's intestines Social history positive for alcohol use Timing/Duration: other (dark stools for 3 days, vomiting black material today) Abdominal Pain Onset Location: other (no abdominal pain) Pain Radiation: no radiation Severity of Pain-Max: none Severity of Pain-Current: none Modifying Factors: Improves With: other (melanotic stools and black vomit recent intestinal surgery) Associated Symptoms: nausea, syncope, vomiting (black vomit), weakness, No back , No chest pain, No diaphoresis, No diarrhea, No fever/chills, No fatigue, No headache, No heartburn, No loss of appetite, No neck pain, No rash, No shortness of breath, No testicular pain Previous symptoms: no prior history, other (patient with recent intestinal surgery to remove benign tumor) Allergies/Adverse Reactions: No Known Drug Allergies Allergy (Verified 10/14/18 03:23) Home Medications: Alprazolam 0.5 mg [xanAX 0.5 MG] 0.5 mg PO BID 07/14/18 [History] Hydrocodone/APAP 5-325 Tab^^^ [[place] 5-325 Tablet^^^] 1 each PO Q6-8HPRN PRN MDD 6 01/17/19 [History] Hx Tetanus, Diphtheria Vaccination/Date Given: Yes Hx Influenza Vaccination/Date Given: Yes Hx Pneumococcal Vaccination/Date Given: Yes Immunizations Up to Date: Yes - Review of Systems Constitutional: No Fever, No Chills Eyes: No Symptoms Ears, Nose, & Throat: No Symptoms Respiratory: No Cough, No Dyspnea Cardiac: Syncope, No Chest Pain, No Edema Abdominal/Gastrointestinal: Nausea, Vomiting, Other (black vomit), No Abdominal Pain, No Diarrhea, No Constipation, No Hematemesis, No Hematochezia, No Dysphagia Genitourinary Symptoms: No Dysuria Musculoskeletal: No Back Pain, No Neck Pain Skin: No Rash Neurological: No Dizziness, No Focal Weakness, No Sensory Changes Psychological: No Symptoms Endocrine: No Symptoms All Other Systems: Reviewed and Negative - Past Medical History Pertinent Past Medical History: Yes Neurological History: No Pertinent History ENT History: No Pertinent History Cardiac History: No Pertinent History Respiratory History: COPD, Other Endocrine Medical History: No Pertinent History Musculoskeletal History: No Pertinent History GI Medical History: No Pertinent History History: No Pertinent History Psycho-Social History: Anxiety Male Reproductive Disorders: No Pertinent History - Past Surgical History Past Surgical History: Yes Neuro Surgical History: No Pertinent History Cardiac: No Pertinent History Respiratory: Other Gastrointestinal: Appendectomy Genitourinary: No Pertinent History Musculoskeletal: Orthopedic Surgery Male Surgical History: No Pertinent History Other Surgical History: operation on right lung to remove nodules(benign) bilateral knee surgeries, right shoulder surgery. removed tumor from abdomen - Social History Smoking Status: Former smoker How long have you smoked: 50 years Exposure to second hand smoke: Yes Drug Use: none Patient Lives Alone: No - Nursing Vital Signs Nursing Vital Signs: Initial Vital Signs Temperature 97.4 F 01/17/19 17:28 Pulse Rate 110 H 01/17/19 17:28 Respiratory Rate 18 01/17/19 17:28 Blood Pressure 121/67 01/17/19 17:28 O2 Sat by Pulse Oximetry 98 01/17/19 17:28 Pain Scale Pain Intensity 5 - Physical Exam General Appearance: mild distress Eye Exam: PERRL/EOMI, eyes nml inspection Ears, Nose, Throat Exam: normal ENT inspection, pharynx normal, moist mucous membranes Neck Exam: normal inspection, non-tender, supple, full range of motion Respiratory Exam: normal breath sounds, lungs clear, No respiratory distress Cardiovascular Exam: regular rate/rhythm, tachycardia, capillary refill <2 sec Gastrointestinal/Abdomen Exam: soft, No tenderness, No mass Rectal Exam: black stool, blood Back Exam: normal inspection, normal range of motion, No CVA tenderness, No vertebral tenderness Extremity Exam: normal inspection, normal range of motion, pelvis stable Neurologic Exam: alert, oriented x 3, cooperative, compliance mgr II-XII nml as tested, normal mood/affect, nml cerebellar function, sensation nml, No motor deficits Skin Exam: normal color, warm, dry SpO2 Interpretation: normal (98%) SpO2: 98 - Course Nursing assessment & vital signs reviewed: Yes EKG Interpreted by Me: RATE (101 bpm), Sinus Rhythm, NORMAL AXIS, Other (EKG: Sinus rhythm, 101 bpm, normal axis, no acute ST or T wave changes noted.) Ordered Tests: Active Orders 24 hr Category Date Time Status Information Systems Security Officer STAT Care 01/17/19 17:42 Active Consent,Obtain ROUTINE Care 01/17/19 18:48 Active EKG-ER Only STAT Care 01/17/19 17:43 Active H&H 1 Hr Post Transfusion 1 HR POST TRANSFUS Care 01/17/19 18:48 Active IV Insertion STAT Care 01/17/19 17:41 Active IV Insertion-2nd Peripheral STAT Care 01/17/19 17:41 Active Pulse Oximetry (ED) STAT Care 01/17/19 17:41 Active AMYLASE Stat Lab 01/17/19 18:30 Completed CBC W DIFF Stat Lab 01/17/19 18:30 Completed CMP Stat Lab 01/17/19 18:30 Completed LIPASE Stat Lab 01/17/19 18:30 Completed Manual Differential NC Stat Lab 01/17/19 18:30 Completed Occult Blood, Other Screening Stat Lab 01/17/19 18:13 Completed PROTIME WITH INR Stat Lab 01/17/19 18:00 Completed TROPONIN Q3H Lab 01/17/19 18:30 Completed TROPONIN Q3H Lab 01/17/19 21:00 Ordered TROPONIN Q3H Lab 01/18/19 00:00 Ordered TROPONIN Q3H Lab 01/18/19 03:00 Ordered TROPONIN Q3H Lab 01/18/19 06:00 Ordered UA W/RFX UR CULTURE Stat Lab 01/17/19 18:50 Completed Medication Summary Discontinued Medications Generic Name Dose Route Start Last Admin Trade Name Rigo PRN Reason Stop Dose Admin Sodium Chloride 1,000 mls @ 999 mls/hr 01/17/19 17:41 01/17/19 18:57 Sodium Chloride 0.9% 1000 Ml IV 01/17/19 18:41 Infused .Q1H1M STA Infusion Sodium Chloride Confirm 01/17/19 17:52 Sodium Chloride 0.9% 1000 Ml Administered 01/17/19 17:53 Dose 1,000 mls @ ud .ROUTE .STK-MED ONE Lidocaine HCl 200 mg 01/17/19 18:42 01/17/19 18:58 Xylocaine 2% Uro-Jet TOP 01/17/19 18:43 200 mg STAT ONE Administration Lidocaine HCl Confirm 01/17/19 18:43 Xylocaine 2% Uro-Jet Administered 01/17/19 18:44 Dose 200 mg .ROUTE .STK-MED ONE Ondansetron HCl 4 mg 01/17/19 18:00 01/17/19 18:06 Zofran 4 Mg/2 Ml Vial IV 01/17/19 18:01 4 mg STAT ONE Administration Ondansetron HCl Confirm 01/17/19 18:02 Zofran 4 Mg/2 Ml Vial Administered 01/17/19 18:03 Dose 4 mg .ROUTE .STK-MED ONE Pantoprazole Sodium 40 mg 01/17/19 18:00 01/17/19 18:04 Protonix 40mg Tablet PO 01/17/19 18:01 Not Given STAT ONE Pantoprazole Sodium 40 mg 01/17/19 18:04 01/17/19 18:06 Protonix 40 Mg Iv IV 01/17/19 18:05 40 mg STAT ONE Administration Pantoprazole Sodium Confirm 01/17/19 18:03 Protonix 40 Mg Iv Administered 01/17/19 18:04 Dose 40 mg IV .STK-MED ONE Lab/Rad Data: Laboratory Result Diagrams 01/17/19 18:30 01/17/19 18:30 Laboratory Results 01/17/19 01/17/19 01/17/19 Range/Units 18:50 18:30 18:30 WBC (4.0-10.5) K/mm3 RBC (4.1-5.6) M/mm3 Hgb (12.5-18.0) gm/dl Hct (42-50) % MCV (78-100) fl MCH (26-32) pg MCHC (32-36) g/dl RDW (11.5-14.0) % Plt Count (150-450) K/mm3 MPV (6-9.5) fl PT (8.83-12.87) SECONDS INR (0.8-3.0) Sodium (137-145) mmol/L Potassium (3.5-5.1) mmol/L Chloride (98-107) mmol/L Carbon Dioxide (22-30) mmol/L Anion Gap (5-15) MEQ/L BUN (9-20) mg/dL Creatinine (0.66-1.25) mg/dL Estimated GFR ML/MIN Glucose (74-106) mg/dL Calcium (8.4-10.2) mg/dL Total Bilirubin (0.2-1.3) mg/dL AST (17-59) U/L ALT (0-50) U/L Alkaline Phosphatase (38-126) U/L Troponin I < 0.012 (0.000-0.034) ng/mL Serum Total Protein (6.3-8.2) g/dL Albumin (3.5-5.0) g/dL Amylase 72 (30-110) U/L Lipase 147 (23-300) U/L Urine Color YELLOW (YELLOW) Urine Appearance CLEAR (CLEAR) Urine pH 5.0 (5-6) Ur Specific [place] 1.021 (1.005-1.025) Urine Protein NEGATIVE (Negative) Urine Ketones NEGATIVE (NEGATIVE) Urine Blood NEGATIVE (0-5) Lee/ul Urine Nitrite NEGATIVE (NEGATIVE) Urine Bilirubin NEGATIVE (NEGATIVE) Urine Urobilinogen NEGATIVE (0-1) mg/dL Ur Leukocyte Esterase NEGATIVE (NEGATIVE) Urine WBC (Auto) NONE (0-5) /HPF Urine RBC (Auto) NONE (0-2) /HPF U Epithel Cells (Auto) NONE (FEW) /HPF Urine Bacteria (Auto) NONE (NEGATIVE) /HPF Urine Mucus (Auto) SLIGHT (NEGATIVE) /HPF Urine Culture Reflexed NO (NO) Urine Glucose NEGATIVE (NEGATIVE) mg/dL Stool Occult Blood (Negative) Crossmatch 01/17/19 01/17/19 01/17/19 Range/Units 18:30 18:30 18:13 WBC 13.0 H (4.0-10.5) K/mm3 RBC 2.38 L (4.1-5.6) M/mm3 Hgb 7.5 L (12.5-18.0) gm/dl Hct 23.6 L (42-50) % MCV 99.2 (78-100) fl MCH 31.5 (26-32) pg MCHC 31.8 L (32-36) g/dl RDW 13.6 (11.5-14.0) % Plt Count 273 (150-450) K/mm3 MPV 12.1 H (6-9.5) fl PT (8.83-12.87) SECONDS INR (0.8-3.0) Sodium 138 (137-145) mmol/L Potassium 4.3 (3.5-5.1) mmol/L Chloride 109 H (98-107) mmol/L Carbon Dioxide 24 (22-30) mmol/L Anion Gap 9.5 (5-15) MEQ/L BUN 32 H (9-20) mg/dL Creatinine 0.77 (0.66-1.25) mg/dL Estimated GFR > 60.0 ML/MIN Glucose 73 L (74-106) mg/dL Calcium 8.2 L (8.4-10.2) mg/dL Total Bilirubin 0.10 L (0.2-1.3) mg/dL AST 36 (17-59) U/L ALT 68 H (0-50) U/L Alkaline Phosphatase 62 (38-126) U/L Troponin I (0.000-0.034) ng/mL Serum Total Protein 5.2 L (6.3-8.2) g/dL Albumin 2.6 L (3.5-5.0) g/dL Amylase (30-110) U/L Lipase (23-300) U/L Urine Color (YELLOW) Urine Appearance (CLEAR) Urine pH (5-6) Ur Specific [place] (1.005-1.025) Urine Protein (Negative) Urine Ketones (NEGATIVE) Urine Blood (0-5) Lee/ul Urine Nitrite (NEGATIVE) Urine Bilirubin (NEGATIVE) Urine Urobilinogen (0-1) mg/dL Ur Leukocyte Esterase (NEGATIVE) Urine WBC (Auto) (0-5) /HPF Urine RBC (Auto) (0-2) /HPF U Epithel Cells (Auto) (FEW) /HPF Urine Bacteria (Auto) (NEGATIVE) /HPF Urine Mucus (Auto) (NEGATIVE) /HPF Urine Culture Reflexed (NO) Urine Glucose (NEGATIVE) mg/dL Stool Occult Blood POSITIVE A (Negative) Crossmatch 01/17/19 01/17/19 Range/Units 18:01 18:00 WBC (4.0-10.5) K/mm3 RBC (4.1-5.6) M/mm3 Hgb (12.5-18.0) gm/dl Hct (42-50) % MCV (78-100) fl MCH (26-32) pg MCHC (32-36) g/dl RDW (11.5-14.0) % Plt Count (150-450) K/mm3 MPV (6-9.5) fl PT 12.9 H (8.83-12.87) SECONDS INR 1.11 (0.8-3.0) Sodium (137-145) mmol/L Potassium (3.5-5.1) mmol/L Chloride (98-107) mmol/L Carbon Dioxide (22-30) mmol/L Anion Gap (5-15) MEQ/L BUN (9-20) mg/dL Creatinine (0.66-1.25) mg/dL Estimated GFR ML/MIN Glucose (74-106) mg/dL Calcium (8.4-10.2) mg/dL Total Bilirubin (0.2-1.3) mg/dL AST (17-59) U/L ALT (0-50) U/L Alkaline Phosphatase (38-126) U/L Troponin I (0.000-0.034) ng/mL Serum Total Protein (6.3-8.2) g/dL Albumin (3.5-5.0) g/dL Amylase (30-110) U/L Lipase (23-300) U/L Urine Color (YELLOW) Urine Appearance (CLEAR) Urine pH (5-6) Ur Specific [place] (1.005-1.025) Urine Protein (Negative) Urine Ketones (NEGATIVE) Urine Blood (0-5) Lee/ul Urine Nitrite (NEGATIVE) Urine Bilirubin (NEGATIVE) Urine Urobilinogen (0-1) mg/dL Ur Leukocyte Esterase (NEGATIVE) Urine WBC (Auto) (0-5) /HPF Urine RBC (Auto) (0-2) /HPF U Epithel Cells (Auto) (FEW) /HPF Urine Bacteria (Auto) (NEGATIVE) /HPF Urine Mucus (Auto) (NEGATIVE) /HPF Urine Culture Reflexed (NO) Urine Glucose (NEGATIVE) mg/dL Stool Occult Blood (Negative) Crossmatch Pending - Progress Progress: improved Progress Note: 01/17/19 19:19 Patient with a GI bleed. Hemoglobin 7.5. I've contacted Dr. De La Torre. He is checking bed availability at [facility]. Would like us to transfuse patient two units of packed red cells. 01/17/19 20:[address] [facility] Will transfer patient after 2 units of packed red cells have been transfused. - Departure Departure Disposition: Transfer ([facility]) Clinical Impression: GI bleed Qualifiers: GI bleed type/associated pathology: unspecified gastrointestinal hemorrhage type Qualified Code(s): K92.2 - Gastrointestinal hemorrhage, unspecified Condition: Fair Critical Care Time: No Referrals: CHARI ALANIZ MD [Primary Care Provider] -
[2019-01-17] MEDS ORDERED: Zofran 4 MG/2 ML VIAL IV ONE (18:00)
[2019-01-17] MEDS ORDERED: Protonix 40MG Tablet PO ONE (18:00)
[2019-01-17] MEDS ORDERED: Zofran 4 MG/2 ML VIAL ONE (18:02)
[2019-01-17] MEDS ORDERED: PROTONIX 40 MG IV IV ONE ×2 (18:03→18:04)
[2019-01-17 18:27] LABS: Hematocrit 23.6 % (42-50); Hemoglobin 7.5 gm/dl (12.5-18.0); Mean Cell Volume 99.2 fl (78-100); Mean Corpuscular Hemoglobin 31.5 pg (26-32); Mean Corpuscular Hgb Concent. 31.8 g/dl (32-36); Mean Platelet Volume 12.1 fl (6-9.5); Platelet Count 273 K/mm3 (150-450); Red Blood Count 2.38 M/mm3 (4.1-5.6); Red Cell Distribution Width 13.6 % (11.5-14.0)
[2019-01-17 18:40] LABS: ALBUMIN 2.6 g/dL (3.5-5.0); ALKALINE PHOSPHATASE 62 U/L (38-126); ANION GAP 9.5 MEQ/L (5-15); BLOOD UREA NITROGEN 32 mg/dL (9-20); CHLORIDE 109 mmol/L (98-107); Calcium 8.2 mg/dL (8.4-10.2); Carbon Dioxide 24 mmol/L (22-30); Creatinine 1 0.77 mg/dL (0.66-1.25); Glucose 73 mg/dL (74-106); Potassium 4.3 mmol/L (3.5-5.1); SGOT/AST 36 U/L (17-59); SGPT/ALT 68 U/L (0-50); SODIUM 138 mmol/L (137-145); Total Protein 5.2 g/dL (6.3-8.2)
[2019-01-17] MEDS ORDERED: XYLOCAINE 2% Uro-Jet TOP ONE (18:42)
[2019-01-17] MEDS ORDERED: XYLOCAINE 2% Uro-Jet ONE (18:43)
[2019-01-17 19:02] LABS: INR 1.11 (0.8-3.0); PROTIME 12.9 SECONDS (8.83-12.87)
[2019-01-17 19:04] LABS: Appearance CLEAR (CLEAR); Bilirubin NEGATIVE (NEGATIVE); Blood NEGATIVE Ery/ul (0-5); Glucose NEGATIVE (NEGATIVE); Ketones NEGATIVE (NEGATIVE); Leukocyte Esterase NEGATIVE (NEGATIVE); Mucus SLIGHT /HPF (NEGATIVE); Nitrite NEGATIVE (NEGATIVE); Protein,Urine Dip NEGATIVE (Negative); Specific Gravity 1.021 (1.005-1.025); Urobilinogen NEGATIVE mg/dL (0-1)
[2019-01-17 19:16] LABS: AMYLASE 72 U/L (30-110); LIPASE 147 U/L (23-300)
[2019-01-17 20:21] LABS: ABO TYPING O; Antibody Screen NEGATIVE (NEGATIVE); RH TYPING POSITIVE
[2019-01-17 20:24] LABS: CROSS MATCH (PRBC) COMPATIBLE (COMPATIBLE)
[2019-01-17 22:44] LABS: ANISOCYTOSIS 1+; Eosinophil 2 % (0.00-3.0); Lymphocytes 17 % (24-44); Monocyte 9 % (0.0-12.0); Neutrophils 72 % (36.-66.); Platelet Estimate NORMAL (NORMAL); Poikilocytosis 1+; Total Cells Counted 100
[2019-01-17 23:21] VITALS: BP 118/62; PULSE 88; O2SAT 96
== END 2019-01-17 23:29 | disposition short-term general hospital (02) ==
LOC: ED 17:23
DX: K92.2 Gastrointestinal hemorrhage, unspecified (principal); Z98.890 Other specified postprocedural states; F41.9 Anxiety disorder, unspecified; Z79.899 Other long term (current) drug therapy
CPT/HCPCS: 36000; 36415; 36430; 80053; 81001; 82150; 82272; 83690; 84484; 85025; 85610; 86850; 86900; 86901; 86922; 93005; 93041; 96360; 96374; 96375; 99285; P9016; J2405

== ENCOUNTER 2019-07-31 10:59 | Observation (INO) | payer MEDICARE, BC ==
[2019-07-31] MEDS ORDERED: Sodium Chloride 0.9% 1000 ML 1,000 ML IV SCH (13:30)
[2019-07-31 13:32] LABS: Absolute Neutrophil Ct (ANC) 4.11 (1.4-6.9); BASOPHIL % 0.6 % (0.0-0.4); Basophil (Absolute #) 0.04 (0-0.4); Eosinophil % 2.1 % (0.00-5.0); Eosinophil (Absolute #) 0.15 (0-0.5); Hematocrit 41.6 % (42-50); Hemoglobin 13.3 gm/dl (12.5-18.0); Lymphocyte (Absolute #) 1.93 (1.0-4.6); Lymphocytes % 26.8 % (24.0-44.0); Mean Cell Volume 92.4 fl (78-100); Mean Corpuscular Hemoglobin 29.6 pg (26-32); Mean Platelet Volume 12.3 fl (6-9.5); Monocyte (Absolute #) 0.97 (0.0-1.3); Monocytes % 13.5 % (0.0-12.0); Platelet Count 190 K/mm3 (150-450); Red Cell Distribution Width 17.3 % (11.5-14.0); White Blood Count 7.2 K/mm3 (4.0-10.5)
[2019-07-31 13:45] LABS: ALKALINE PHOSPHATASE 94 U/L (38-126); BLOOD UREA NITROGEN 10 mg/dL (9-20); CHLORIDE 102 mmol/L (98-107); Carbon Dioxide 28 mmol/L (22-30); Creatinine 1 0.72 mg/dL (0.66-1.25); Glucose 94 mg/dL (74-106); NT PRO BNP 114 pg/mL (0-900); Potassium 3.9 mmol/L (3.5-5.1); SGOT/AST 58 U/L (17-59); SGPT/ALT 121 U/L (0-50); SODIUM 141 mmol/L (137-145); Total Protein 7.5 g/dL (6.3-8.2)
[2019-07-31] MEDS: DUONEB 0.5-3 MG/3 ml Neb IH SCH ×3 (14:14→23:58)
[2019-07-31] MEDS: ROCEPHIN 1 Gm-D5w 50 ml Bag** 1 G/50 ML IVPB IV SCH (14:22)
[2019-07-31] MEDS ORDERED: Zithromax 500 MG/ 250 ML NaCl Premix 500 MG/250 ML IVPB IV SCH (15:00)
--- NOTE | 2019-07-31 16:11 | XRAY ---
Indication: Cough and congestion. Comparison: October 14, 2018. PA/lateral chest remains hyperinflated with chronic lung markings. No focal infiltrate, consolidation, or large effusion. Heart and mediastinal structures within normal limits. Bony thorax intact again with mild degenerative changes. Impression: Stable nonacute hyperinflated chest with chronic features.
[2019-07-31] MEDS ORDERED: TYLENOL 325 MG PO PRN (20:42)
[2019-07-31] MEDS: xanAX 0.5 MG PO SCH (20:50)
[2019-08-01] MEDS: DUONEB 0.5-3 MG/3 ml Neb IH SCH ×3 (03:49→10:49)
[2019-08-01 07:11] VITALS: PULSE 94; O2SAT 94
[2019-08-01 07:49] VITALS: BP 128/73
[2019-08-01] MEDS ORDERED: solu-MEDROL 40 MG IV SCH (09:00)
[2019-08-01] MEDS: xanAX 0.5 MG PO SCH (09:33)
[2019-08-01] MEDS: ROCEPHIN 1 Gm-D5w 50 ml Bag** 1 G/50 ML IVPB IV SCH (09:34)
[2019-08-01] MEDS ORDERED: VITAMIN D PO SCH (10:00)
[2019-08-01] MEDS ORDERED: Protonix 40MG Tablet PO SCH (10:00)
[2019-08-01] MEDS ORDERED: FEOSOL 325 MG PO SCH (10:00)
[2019-08-01] MEDS ORDERED: NON-FORMULARY ITEM (Cholecalciferol (Vitamin D3) [Vitamin D3] 1,000 UNIT) PO SCH (10:00)
[2019-08-01] MEDS ORDERED: FERROUS SULFATE PO SCH (10:00)
== END 2019-08-01 11:10 | disposition home or self-care (01) ==
LOC: MED SURG 11:51
PROVIDERS: ADMIT General Practice; ATTEND General Practice
DX: J44.1 Chronic obstructive pulmonary disease with (acute) exacerbation (principal); J15.9 Unspecified bacterial pneumonia; Z79.899 Other long term (current) drug therapy
CPT/HCPCS: 36415; 71046; 80053; 83880; 85025; 87040; 94150; 94640; 94760; G0378; J0456; J0696; J2920; A9270-GY

== ENCOUNTER 2020-07-31 03:49 | Inpatient (IN) | payer MEDICARE ==
[2020-07-31] MEDS ORDERED: MORPHINE SULFATE 2 MG INJ IV ONE (04:13)
[2020-07-31] MEDS ORDERED: ZOFRAN ODT 4 MG PO ONE (04:13)
[2020-07-31] MEDS ORDERED: Sodium Chloride 0.9% 1000 ML 1,000 ML IV SCH (04:15)
[2020-07-31] MEDS ORDERED: MORPHINE SULFATE 2 MG INJ ONE (04:23)
[2020-07-31] MEDS ORDERED: Sodium Chloride 0.9% 1000 ML 1,000 ML ONE (04:23)
[2020-07-31] MEDS ORDERED: ZOFRAN ODT 4 MG ONE (04:23)
[2020-07-31 05:03] LABS: Appearance SLIGHTLY CLOUDY (CLEAR); Bilirubin NEGATIVE (NEGATIVE); Blood NEGATIVE Ery/ul (0-5); Glucose NEGATIVE (NEGATIVE); Ketones NEGATIVE (NEGATIVE); Leukocyte Esterase NEGATIVE (NEGATIVE); Mucus SLIGHT /HPF (NEGATIVE); Nitrite NEGATIVE (NEGATIVE); Protein,Urine Dip NEGATIVE (Negative); Specific Gravity 1.023 (1.005-1.025); Urobilinogen 2 mg/dL (0-1)
[2020-07-31 05:13] LABS: Absolute Neutrophil Ct (ANC) 6.73 (1.4-6.9); BASOPHIL % 0.1 % (0.0-0.4); Basophil (Absolute #) 0.01 (0-0.4); Eosinophil % 0.7 % (0.00-5.0); Eosinophil (Absolute #) 0.07 (0-0.5); Hemoglobin 15.3 gm/dl (12.5-18.0); Lymphocyte (Absolute #) 2.36 (1.0-4.6); Lymphocytes % 22.8 % (24.0-44.0); Mean Cell Volume 93.8 fl (78-100); Mean Corpuscular Hemoglobin 29.9 pg (26-32); Mean Corpuscular Hgb Concent. 31.9 g/dl (32-36); Mean Platelet Volume 12.7 fl (7.5-11.0); Monocytes % 11.6 % (0.0-12.0); Neutrophil % 64.8 % (36.0-66.0); Platelet Count 218 K/mm3 (150-450); Red Blood Count 5.12 M/mm3 (4.1-5.6); Red Cell Distribution Width 14.7 % (11.5-14.0); White Blood Count 10.4 K/mm3 (4.0-10.5)
[2020-07-31 05:16] LABS: ALBUMIN 4.3 g/dL (3.5-5.0); ALKALINE PHOSPHATASE 87 U/L (38-126); ANION GAP 11.9 MEQ/L (5-15); BLOOD UREA NITROGEN 12 mg/dL (9-20); CHLORIDE 104 mmol/L (98-107); Calcium 9.3 mg/dL (8.4-10.2); Carbon Dioxide 25 mmol/L (22-30); Creatinine 1 0.76 mg/dL (0.66-1.25); EST GLOMERULAR FILTRATION RATE > 60.0 ML/MIN; Glucose 134 mg/dL (74-106); LIPASE 17 U/L (23-300); Potassium 4.5 mmol/L (3.5-5.1); SGOT/AST 34 U/L (17-59); SGPT/ALT 47 U/L (0-50); SODIUM 137 mmol/L (137-145); Total Protein 7.9 g/dL (6.3-8.2)
[2020-07-31] MEDS ORDERED: MORPHINE SULFATE 4 MG INJ IV ONE (05:42)
--- NOTE | 2020-07-31 05:49 | ERPHSYRPT ---
- History of Present Illness Time Seen by Provider: 07/31/20 04:05 Historian: patient Exam Limitations: no limitations Patient Subjective Stated Complaint: Patient states vomiting for last 3 days. Patient states he hasnt been able to eat or hardly drink anything in last 3 days. States " I haven't been able to sleep for days". Triage Nursing Assessment: Patient arrived with . Patient ambulated to room without difficulty. Gait slow and steady. Patient lungs diminished throughout A/P. Patient denies SOB. Patient denies chest pain. Patient noted with smokers cough. No pedal or lower extremity edema. Oral mucosa unclean. White coating noted to tongue. Patient noted with unkept nails with moderate amounts of dirt under. ABD on right side tender upon palpitation. Pupils noted to be pinpointed. Patient denies any ABD trauma or injury. + pedal pulses noted. 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 Physician History: Patient is a 64-year-old male presents to our ED with complaints of nausea vomiting and abdominal pain. Patient states that nausea vomiting started approximately 3 days ago. Patient has not been able to tolerate oral intake. Patient felt he was constipated as he has not had a bowel movement in 3 days. provided patient with a laxative today however symptoms did not resolve. Patient describes abdominal pain as an ache that is localized to the epigastric region no associated trauma. No fever. No trauma. Symptoms are mild to moderate in intensity. No specific worsening or improving factors. Patient voices no other complaints concerns at this time. Timing/Duration: day(s) (3) Activities at Onset: none Quality: aching Abdominal Pain Onset Location: epigastric Pain Radiation: no radiation Severity of Pain-Max: moderate Severity of Pain-Current: moderate Modifying Factors: Improves With: nothing Associated Symptoms: nausea, vomiting, No chest pain, No diaphoresis, No diarrhea, No headache, No heartburn, No loss of appetite, No rash, No weakness Previous symptoms: no prior history Allergies/Adverse Reactions: No Known Drug Allergies Allergy (Verified 07/31/20 04:41) Home Medications: Alprazolam 0.5 mg [xanAX 0.5 MG] 0.5 mg PO BID 07/14/18 [History] Hx Tetanus, Diphtheria Vaccination/Date Given: Yes Hx Influenza Vaccination/Date Given: No Hx Pneumococcal Vaccination/Date Given: Yes Immunizations Up to Date: Yes Travel Risk - International Travel Have you traveled outside of the country in past 3 weeks: No - Coronavirus Screening Symptoms: Vomiting/Diarrhea Close contact with a COVID-19 positive Pt in past 14-21 Days: No - Review of Systems Constitutional: No Symptoms, No Fever, No Chills Eyes: No Symptoms Ears, Nose, & Throat: No Symptoms Respiratory: No Symptoms, No Cough, No Dyspnea Cardiac: No Symptoms, No Chest Pain, No Edema, No Syncope Abdominal/Gastrointestinal: No Symptoms, No Abdominal Pain, No Nausea, No Vomiting, No Diarrhea Genitourinary Symptoms: No Symptoms, No Dysuria Musculoskeletal: No Symptoms, No Back Pain, No Neck Pain Skin: No Symptoms, No Rash Neurological: No Symptoms, No Dizziness, No Focal Weakness, No Sensory Changes Psychological: No Symptoms Endocrine: No Symptoms Hematologic/Lymphatic: No Symptoms Immunological/Allergic: No Symptoms All Other Systems: Reviewed and Negative - Past Medical History Pertinent Past Medical History: Yes Neurological History: No Pertinent History ENT History: No Pertinent History Cardiac History: No Pertinent History Respiratory History: COPD, Other Endocrine Medical History: No Pertinent History Musculoskeletal History: No Pertinent History GI Medical History: No Pertinent History History: No Pertinent History Psycho-Social History: Anxiety Male Reproductive Disorders: No Pertinent History - Past Surgical History Past Surgical History: Yes Neuro Surgical History: No Pertinent History Cardiac: No Pertinent History Respiratory: Other Gastrointestinal: Appendectomy Genitourinary: No Pertinent History Musculoskeletal: Orthopedic Surgery Male Surgical History: No Pertinent History Other Surgical History: operation on right lung to remove nodules(benign) bilateral knee surgeries, right shoulder surgery, removed nodules from throat. removed tumor from abdomen - Social History Smoking Status: Current every day smoker How long have you smoked: 40 years Exposure to second hand smoke: Yes Drug Use: none Patient Lives Alone: No - Nursing Vital Signs Nursing Vital Signs: Initial Vital Signs Temperature 97.6 F 07/31/20 03:59 Pulse Rate 60 07/31/20 03:59 Respiratory Rate 18 07/31/20 03:59 Blood Pressure 149/87 07/31/20 03:59 O2 Sat by Pulse Oximetry 97 07/31/20 03:59 Pain Scale Pain Intensity 4 - Physical Exam General Appearance: no apparent distress, alert Eye Exam: PERRL/EOMI, eyes nml inspection Ears, Nose, Throat Exam: normal ENT inspection, pharynx normal, moist mucous membranes Neck Exam: normal inspection, non-tender, supple, full range of motion Respiratory Exam: normal breath sounds, lungs clear, No respiratory distress Cardiovascular Exam: regular rate/rhythm, normal heart sounds Gastrointestinal/Abdomen Exam: soft, tenderness, No mass, No guarding, No pulsatile mass Back Exam: normal inspection, normal range of motion, No CVA tenderness, No vertebral tenderness Extremity Exam: normal inspection, normal range of motion, pelvis stable Neurologic Exam: alert, oriented x 3, cooperative, normal mood/affect, nml cerebellar function, sensation nml, No motor deficits Skin Exam: normal color, warm, dry Lymphatic Exam: No adenopathy SpO2 Interpretation: normal SpO2: 98 O2 Delivery: Room Air - Course Nursing assessment & vital signs reviewed: Yes EKG Interpreted by Me: RATE (67), Sinus Rhythm, NORMAL AXIS, NORMAL INTERVALS - CT Exams Abdomen/Pelvis CT Interpretation: Tele-radiologist Report (Accentuation of gastric folds with likely air deep within the folds which could reflect a nonspecific edema or gastritis. This was a finding was present on CT scan performed April 14, 2019. Atherosclerotic calcification abdominal aorta, minor distal colonic diverticulosis, bladder wall irregularity) Ordered Tests: Active Orders 24 hr Category Date Time Status EKG-ER Only STAT Care 07/31/20 04:13 Active IV Insertion STAT Care 07/31/20 04:13 Active ABDOMEN AND PELVIS W CONTRAST [CT] Stat Exams 07/31/20 05:29 Taken CBC W DIFF Stat Lab 07/31/20 04:25 Completed CMP Stat Lab 07/31/20 04:25 Completed LIPASE Stat Lab 07/31/20 04:25 Completed TROPONIN Q3H Lab 07/31/20 04:25 Completed TROPONIN Q3H Lab 07/31/20 07:15 Ordered TROPONIN Q3H Lab 07/31/20 10:15 Ordered TROPONIN Q3H Lab 07/31/20 13:15 Ordered TROPONIN Q3H Lab 07/31/20 16:15 Ordered UA W/RFX UR CULTURE Stat Lab 07/31/20 04:55 Completed Transfer Order Routine Transfer 07/31/20 Ordered Medication Summary Generic Name Dose Route Start Last Admin Trade Name Freq PRN Reason Stop Dose Admin Sodium Chloride 1,000 mls @ 100 mls/hr 07/31/20 04:15 07/31/20 04:28 Sodium Chloride 0.9% 1000 Ml IV 08/30/20 04:14 100 mls/hr .Q10H CHRISSY Administration Discontinued Medications Generic Name Dose Route Start Last Admin Trade Name Rigo PRN Reason Stop Dose Admin Morphine Sulfate 2 mg 07/31/20 04:13 07/31/20 04:27 Morphine Sulfate 2 Mg Inj IV 07/31/20 04:14 2 mg STAT ONE Administration Morphine Sulfate Confirm 07/31/20 04:23 Morphine Sulfate 2 Mg Inj Administered 07/31/20 04:24 Dose 2 mg .ROUTE .STK-MED ONE Morphine Sulfate 4 mg 07/31/20 05:42 07/31/20 05:52 Morphine Sulfate 4 Mg Inj IV 07/31/20 05:43 4 mg STAT ONE Administration Morphine Sulfate Confirm 07/31/20 05:50 Morphine Sulfate 4 Mg Inj Administered 07/31/20 05:51 Dose 4 mg .ROUTE .STK-MED ONE Ondansetron HCl 4 mg 07/31/20 04:13 07/31/20 04:28 Zofran Odt 4 Mg PO 07/31/20 04:14 4 mg STAT ONE Administration Ondansetron HCl Confirm 07/31/20 04:23 Zofran Odt 4 Mg Administered 07/31/20 04:24 Dose 4 mg .ROUTE .STK-MED ONE Lab/Rad Data: Laboratory Result Diagrams 07/31/20 04:25 07/31/20 04:25 Laboratory Results 07/31/20 07/31/20 07/31/20 Range/Units 04:55 04:25 04:25 WBC (4.0-10.5) K/mm3 RBC (4.1-5.6) M/mm3 Hgb (12.5-18.0) gm/dl Hct (42-50) % MCV (78-100) fl MCH (26-32) pg MCHC (32-36) g/dl RDW (11.5-14.0) % Plt Count (150-450) K/mm3 MPV (7.5-11.0) fl Gran % (36.0-66.0) % Eos # (Auto) (0-0.5) Absolute Lymphs (auto) (1.0-4.6) Absolute Monos (auto) (0.0-1.3) Lymphocytes % (24.0-44.0) % Monocytes % (0.0-12.0) % Eosinophils % (0.00-5.0) % Basophils % (0.0-0.4) % Absolute Granulocytes (1.4-6.9) Basophils # (0-0.4) Sodium 137 (137-145) mmol/L Potassium 4.5 (3.5-5.1) mmol/L Chloride 104 (98-107) mmol/L Carbon Dioxide 25 (22-30) mmol/L Anion Gap 11.9 (5-15) MEQ/L BUN 12 (9-20) mg/dL Creatinine 0.76 (0.66-1.25) mg/dL Estimated GFR > 60.0 ML/MIN Glucose 134 H (74-106) mg/dL Calcium 9.3 (8.4-10.2) mg/dL Total Bilirubin 0.70 (0.2-1.3) mg/dL AST 34 (17-59) U/L ALT 47 (0-50) U/L Alkaline Phosphatase 87 (38-126) U/L Troponin I < 0.012 (0.000-0.034) ng/mL Serum Total Protein 7.9 (6.3-8.2) g/dL Albumin 4.3 (3.5-5.0) g/dL Lipase 17 L (23-300) U/L Urine Color YELLOW (YELLOW) Urine Appearance SLIGHTLY CLOUDY (CLEAR) Urine pH 5.0 (5-6) Ur Specific [place] 1.023 (1.005-1.025) Urine Protein NEGATIVE (Negative) Urine Ketones NEGATIVE (NEGATIVE) Urine Blood NEGATIVE (0-5) Lee/ul Urine Nitrite NEGATIVE (NEGATIVE) Urine Bilirubin NEGATIVE (NEGATIVE) Urine Urobilinogen 2 (0-1) mg/dL Ur Leukocyte Esterase NEGATIVE (NEGATIVE) Urine WBC (Auto) 3-5 (0-5) /HPF Urine RBC (Auto) 11-15 (0-2) /HPF U Hyaline Cast (Auto) 3-5 (0-2) /LPF U Epithel Cells (Auto) NONE (FEW) /HPF Urine Bacteria (Auto) NONE (NEGATIVE) /HPF Other Casts (Auto) 2-5 (NEGATIVE) /LPF Urine Mucus (Auto) SLIGHT (NEGATIVE) /HPF Urine Culture Reflexed NO (NO) Urine Glucose NEGATIVE (NEGATIVE) mg/dL 07/31/20 Range/Units 04:25 WBC 10.4 (4.0-10.5) K/mm3 RBC 5.12 (4.1-5.6) M/mm3 Hgb 15.3 (12.5-18.0) gm/dl Hct 48.0 (42-50) % MCV 93.8 (78-100) fl MCH 29.9 (26-32) pg MCHC 31.9 L (32-36) g/dl RDW 14.7 H (11.5-14.0) % Plt Count 218 (150-450) K/mm3 MPV 12.7 H (7.5-11.0) fl Gran % 64.8 (36.0-66.0) % Eos # (Auto) 0.07 (0-0.5) Absolute Lymphs (auto) 2.36 (1.0-4.6) Absolute Monos (auto) 1.20 (0.0-1.3) Lymphocytes % 22.8 L (24.0-44.0) % Monocytes % 11.6 (0.0-12.0) % Eosinophils % 0.7 (0.00-5.0) % Basophils % 0.1 (0.0-0.4) % Absolute Granulocytes 6.73 (1.4-6.9) Basophils # 0.01 (0-0.4) Sodium (137-145) mmol/L Potassium (3.5-5.1) mmol/L Chloride (98-107) mmol/L Carbon Dioxide (22-30) mmol/L Anion Gap (5-15) MEQ/L BUN (9-20) mg/dL Creatinine (0.66-1.25) mg/dL Estimated GFR ML/MIN Glucose (74-106) mg/dL Calcium (8.4-10.2) mg/dL Total Bilirubin (0.2-1.3) mg/dL AST (17-59) U/L ALT (0-50) U/L Alkaline Phosphatase (38-126) U/L Troponin I (0.000-0.034) ng/mL Serum Total Protein (6.3-8.2) g/dL Albumin (3.5-5.0) g/dL Lipase (23-300) U/L Urine Color (YELLOW) Urine Appearance (CLEAR) Urine pH (5-6) Ur Specific [place] (1.005-1.025) Urine Protein (Negative) Urine Ketones (NEGATIVE) Urine Blood (0-5) Lee/ul Urine Nitrite (NEGATIVE) Urine Bilirubin (NEGATIVE) Urine Urobilinogen (0-1) mg/dL Ur Leukocyte Esterase (NEGATIVE) Urine WBC (Auto) (0-5) /HPF Urine RBC (Auto) (0-2) /HPF U Hyaline Cast (Auto) (0-2) /LPF U Epithel Cells (Auto) (FEW) /HPF Urine Bacteria (Auto) (NEGATIVE) /HPF Other Casts (Auto) (NEGATIVE) /LPF Urine Mucus (Auto) (NEGATIVE) /HPF Urine Culture Reflexed (NO) Urine Glucose (NEGATIVE) mg/dL - Progress Progress: improved Progress Note: 07/31/20 06:53 Patient reassessed. He continues to feel abdominal pain and nauseous. Patient unable to tolerate p.o. at this time. Patient requesting admission. Will admit for rehydration and increase oral intake. Case discussed with Dr. Alaniz who accepts admission to observation. Plan of care discussed with patient. He agrees to admission to [facility] for further evaluation and treatment. Discussed with .: Wendy Will see patient in: hospital (observation) Counseled pt/family regarding: lab results, diagnosis, rad results - Departure Departure Disposition: Observation Clinical Impression: Nausea and vomiting, Abdominal pain, Gastritis, Aortic calcification, D iverticulosis, Cystitis, Microscopic hematuria Condition: Stable Critical Care Time: No Referrals: CHARI ALANIZ MD [Primary Care Provider] -
[2020-07-31] MEDS ORDERED: MORPHINE SULFATE 4 MG INJ ONE (05:50)
[2020-07-31] MEDS ORDERED: Zofran 4 MG/2 ML VIAL IV PRN ×2 (08:32→17:02)
--- NOTE | 2020-07-31 09:02 | PCM.HP ---
History of Present Illness - Chief Complaint Chief Complaint: intractable vomiting for 2 days History of Present Illness: is a 64 year old male. presents to our ED with complaints of nausea vomiting and abdominal pain. Patient states that nausea vomiting started approximately 3 days ago. Patient has not been able to tolerate oral intake. Patient felt he was constipated as he has not had a bowel movement in 3 days. provided patient with a laxative today however symptoms did not resolve. Patient describes abdominal pain as an ache that is localized to the epigastric region no associated trauma. No fever. No trauma. Symptoms are mild to moderate in intensity. No specific worsening or improving factors. Patient voices no other complaints concerns at this time. - Review of Systems Constitutional: No Fever, No Chills Eyes: No Symptoms Ears, Nose, & Throat: No Symptoms Respiratory: No Cough, No Short Of Breath Cardiac: No Chest Pain, No Edema, No Syncope Abdominal/Gastrointestinal: No Abdominal Pain, No Nausea, No Vomiting, No Diarrhea Genitourinary Symptoms: No Dysuria Musculoskeletal: No Back Pain, No Neck Pain Skin: No Rash Neurological: No Dizziness, No Focal Weakness, No Sensory Changes Psychological: No Symptoms Endocrine: No Symptoms Hematologic/Lymphatic: No Symptoms Immunological/Allergic: No Symptoms Medications & Allergies Home Medications: Home Medication List Alprazolam 0.5 mg [xanAX 0.5 MG] 0.5 mg PO BID 07/14/18 [History Confirmed 07/31/20] Allergies/Adverse Reactions: Allergies Allergy/AdvReac Type Severity Reaction Status Date / Time No Known Drug Allergies Allergy Verified 07/31/20 04:41 - Past Medical History Past Medical History: Yes Neurological History: No Pertinent History ENT History: No Pertinent History Cardiac History: No Pertinent History Respiratory History: COPD, Other Endocrine Medical History: No Pertinent History Musculoskelatal History: No Pertinent History GI Medical History: No Pertinent History History: No Pertinent History Pyscho-Social History: Anxiety Male Reproductive Disorders: No Pertinent History - Past Surgical History Past Surgical History: Yes Neuro Surgical History: No Pertinent History Cardiac History: No Pertinent History Respiratory Surgery: Other GI Surgical History: Appendectomy Genitourinary Surgical Hx: No Pertinent History Musculskeletal Surgical Hx: Orthopedic Surgery Male Surgical History: No Pertinent History Other Surgical History: operation on right lung to remove nodules(benign) bilateral knee surgeries, right shoulder surgery, removed nodules from throat. removed tumor from abdomen - Social History Smoking Status: Current every day smoker How long have you smoked: 40 years Exposure to second hand smoke: Yes Alcohol: None Drug Use: none - Physical Exam Vital Signs: Vital Signs - 24 hr Temp Pulse Resp BP Pulse Ox 07/31/20 07:44 76 20 139/78 94 L 07/31/20 06:54 98 07/31/20 06:00 68 18 170/86 97 07/31/20 05:00 84 18 152/77 98 07/31/20 03:59 97.6 F 60 18 149/87 97 General Appearance: no apparent distress, alert Neurologic Exam: alert, oriented x 3, cooperative, normal mood/affect, nml cerebellar function, nml station & gait, sensation nml, No motor deficits Eye Exam: PERRL/EOMI, eyes nml inspection Ears, Nose, Throat Exam: normal ENT inspection, TMs normal, pharynx normal, moist mucous membranes Neck Exam: normal inspection, non-tender, supple, full range of motion Respiratory Exam: normal breath sounds, lungs clear, No respiratory distress Cardiovascular Exam: regular rate/rhythm, normal heart sounds, normal peripheral pulses Gastrointestinal/Abdomen Exam: soft, normal bowel sounds, No tenderness, No mass Back Exam: normal inspection, normal range of motion, No CVA tenderness, No vertebral tenderness Extremity Exam: normal inspection, normal range of motion, pelvis stable Skin Exam: normal color, warm, dry, No rash Lymphatic Exam: No adenopathy Results - Labs Lab/Micro Results: Lab Results-Last 24 Hours 07/31/20 07/31/20 07/31/20 Range/Units 04:25 04:25 04:25 WBC 10.4 (4.0-10.5) K/mm3 RBC 5.12 (4.1-5.6) M/mm3 Hgb 15.3 (12.5-18.0) gm/dl Hct 48.0 (42-50) % MCV 93.8 (78-100) fl MCH 29.9 (26-32) pg MCHC 31.9 L (32-36) g/dl RDW 14.7 H (11.5-14.0) % Plt Count 218 (150-450) K/mm3 MPV 12.7 H (7.5-11.0) fl Gran % 64.8 (36.0-66.0) % Eos # (Auto) 0.07 (0-0.5) Absolute Lymphs (auto) 2.36 (1.0-4.6) Absolute Monos (auto) 1.20 (0.0-1.3) Lymphocytes % 22.8 L (24.0-44.0) % Monocytes % 11.6 (0.0-12.0) % Eosinophils % 0.7 (0.00-5.0) % Basophils % 0.1 (0.0-0.4) % Absolute Granulocytes 6.73 (1.4-6.9) Basophils # 0.01 (0-0.4) Sodium 137 (137-145) mmol/L Potassium 4.5 (3.5-5.1) mmol/L Chloride 104 (98-107) mmol/L Carbon Dioxide 25 (22-30) mmol/L Anion Gap 11.9 (5-15) MEQ/L BUN 12 (9-20) mg/dL Creatinine 0.76 (0.66-1.25) mg/dL Estimated GFR > 60.0 ML/MIN Glucose 134 H (74-106) mg/dL Calcium 9.3 (8.4-10.2) mg/dL Total Bilirubin 0.70 (0.2-1.3) mg/dL AST 34 (17-59) U/L ALT 47 (0-50) U/L Alkaline Phosphatase 87 (38-126) U/L Troponin I < 0.012 (0.000-0.034) ng/mL Serum Total Protein 7.9 (6.3-8.2) g/dL Albumin 4.3 (3.5-5.0) g/dL Lipase 17 L (23-300) U/L Urine Color (YELLOW) Urine Appearance (CLEAR) Urine pH (5-6) Ur Specific [place] (1.005-1.025) Urine Protein (Negative) Urine Ketones (NEGATIVE) Urine Blood (0-5) Lee/ul Urine Nitrite (NEGATIVE) Urine Bilirubin (NEGATIVE) Urine Urobilinogen (0-1) mg/dL Ur Leukocyte Esterase (NEGATIVE) Urine WBC (Auto) (0-5) /HPF Urine RBC (Auto) (0-2) /HPF U Hyaline Cast (Auto) (0-2) /LPF U Epithel Cells (Auto) (FEW) /HPF Urine Bacteria (Auto) (NEGATIVE) /HPF Other Casts (Auto) (NEGATIVE) /LPF Urine Mucus (Auto) (NEGATIVE) /HPF Urine Culture Reflexed (NO) Urine Glucose (NEGATIVE) mg/dL 07/31/20 07/31/20 Range/Units 04:55 07:17 WBC (4.0-10.5) K/mm3 RBC (4.1-5.6) M/mm3 Hgb (12.5-18.0) gm/dl Hct (42-50) % MCV (78-100) fl MCH (26-32) pg MCHC (32-36) g/dl RDW (11.5-14.0) % Plt Count (150-450) K/mm3 MPV (7.5-11.0) fl Gran % (36.0-66.0) % Eos # (Auto) (0-0.5) Absolute Lymphs (auto) (1.0-4.6) Absolute Monos (auto) (0.0-1.3) Lymphocytes % (24.0-44.0) % Monocytes % (0.0-12.0) % Eosinophils % (0.00-5.0) % Basophils % (0.0-0.4) % Absolute Granulocytes (1.4-6.9) Basophils # (0-0.4) Sodium (137-145) mmol/L Potassium (3.5-5.1) mmol/L Chloride (98-107) mmol/L Carbon Dioxide (22-30) mmol/L Anion Gap (5-15) MEQ/L BUN (9-20) mg/dL Creatinine (0.66-1.25) mg/dL Estimated GFR ML/MIN Glucose (74-106) mg/dL Calcium (8.4-10.2) mg/dL Total Bilirubin (0.2-1.3) mg/dL AST (17-59) U/L ALT (0-50) U/L Alkaline Phosphatase (38-126) U/L Troponin I < 0.012 (0.000-0.034) ng/mL Serum Total Protein (6.3-8.2) g/dL Albumin (3.5-5.0) g/dL Lipase (23-300) U/L Urine Color YELLOW (YELLOW) Urine Appearance SLIGHTLY CLOUDY (CLEAR) Urine pH 5.0 (5-6) Ur Specific [place] 1.023 (1.005-1.025) Urine Protein NEGATIVE (Negative) Urine Ketones NEGATIVE (NEGATIVE) Urine Blood NEGATIVE (0-5) Lee/ul Urine Nitrite NEGATIVE (NEGATIVE) Urine Bilirubin NEGATIVE (NEGATIVE) Urine Urobilinogen 2 (0-1) mg/dL Ur Leukocyte Esterase NEGATIVE (NEGATIVE) Urine WBC (Auto) 3-5 (0-5) /HPF Urine RBC (Auto) 11-15 (0-2) /HPF U Hyaline Cast (Auto) 3-5 (0-2) /LPF U Epithel Cells (Auto) NONE (FEW) /HPF Urine Bacteria (Auto) NONE (NEGATIVE) /HPF Other Casts (Auto) 2-5 (NEGATIVE) /LPF Urine Mucus (Auto) SLIGHT (NEGATIVE) /HPF Urine Culture Reflexed NO (NO) Urine Glucose NEGATIVE (NEGATIVE) mg/dL - Radiology Impressions Radiology Exams & Impressions: Radiology Procedures Category Date Time Status ABDOMEN AND PELVIS W CONTRAST [CT] Stat Exams 07/31/20 05:29 Taken Assessment/Plan (1) Abdominal pain Current Visit: Yes Status: Acute Qualifiers: Abdominal location: generalized Qualified Code(s): R10.84 - Generalized abdominal pain Code(s): R10.9 - UNSPECIFIED ABDOMINAL PAIN (2) Cystitis Current Visit: Yes Status: Acute Code(s): N30.90 - CYSTITIS, UNSPECIFIED WITHOUT HEMATURIA (3) Nausea and vomiting Current Visit: Yes Status: Acute Code(s): R11.2 - NAUSEA WITH VOMITING, UNSPECIFIED (4) Enteritis Current Visit: No Status: Acute Code(s): K52.9 - NONINFECTIVE G ASTROENTERITIS AND COLITIS, UNSPECIFIED
--- NOTE | 2020-07-31 09:05 | XRAY ---
Indication: Abdomen pain, nausea, and vomiting 3 days. Multiple contiguous axial images obtained through the abdomen and pelvis using 80 cc Isovue 370 contrast only. Comparison: April 14, 2019. Lung bases again demonstrates pulmonary emphysema and minimal atelectasis/scarring. No infiltrate or effusion. Heart is not enlarged. Noncontrasted stomach and bowel loops appear nonobstructed. Radiopacity in the distal small bowel either ingested barium or bismuth. Appendectomy reported. Again minimal sigmoid diverticulosis. No free fluid/air. Remaining liver, gallbladder, pancreas, spleen, adrenal glands, kidneys, ureters, and bladder are unremarkable. Mild scattered aortoiliac calcifications without AAA. No pathologic retroperitoneal lymphadenopathy. Osseous structures intact again with mild degenerative changes throughout the spine. 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 Impression: 1. Stable sigmoid diverticulosis, pulmonary emphysema, and L5 spondylolysis without spondylolisthesis. 2. Remaining CT abdomen/pelvis with contrast exam is negative. Comment: Preliminary interpretation was made by [facility]. No critical discrepancy.
[2020-07-31] MEDS: Sodium Chloride 0.9% 1000 ML 1,000 ML IV SCH ×2 (09:20→19:33)
[2020-07-31] MEDS: MORPHINE SULFATE 4 MG INJ IV PRN ×2 (10:17→14:36)
[2020-07-31] MEDS: xanAX 0.5 MG PO SCH ×2 (12:03→23:11)
[2020-07-31] MEDS: SUBLIMAZE 100 MCG/2 ML IV PRN ×2 (17:22→23:10)
[2020-07-31] MEDS ORDERED: Pepcid 20 MG VIAL IV ONE (23:26)
[2020-08-01] MEDS: SUBLIMAZE 100 MCG/2 ML IV PRN ×4 (05:12→23:14)
[2020-08-01] MEDS: Sodium Chloride 0.9% 1000 ML 1,000 ML IV SCH ×2 (05:30→15:43)
[2020-08-01] MEDS: xanAX 0.5 MG PO SCH ×2 (09:43→18:59)
[2020-08-01] MEDS ORDERED: FLUZONE HIGH-DOSE QUAD 2020-21 IM ONE (10:00)
[2020-08-01] MEDS: PROTONIX 40 MG IV IV SCH (14:23)
[2020-08-01] MEDS: Pepcid 20 MG VIAL IV SCH (14:23)
--- NOTE | 2020-08-01 16:06 | PCM.NOTE ---
Date and Time: 08/01/20 1606 Subjective Assessment: still abdominal pain - Review of Systems Constitutional: No Fever, No Chills Eyes: No Symptoms Ears, Nose, & Throat: No Symptoms Respiratory: No Cough, No Short Of Breath Cardiac: No Chest Pain, No Edema, No Syncope Abdominal/Gastrointestinal: Abdominal Pain, No Nausea, No Vomiting, No Diarrhea Genitourinary Symptoms: No Dysuria Musculoskeletal: No Back Pain, No Neck Pain Skin: No Rash Neurological: No Dizziness, No Focal Weakness, No Sensory Changes Psychological: No Symptoms Endocrine: No Symptoms Hematologic/Lymphatic: No Symptoms Immunological/Allergic: No Symptoms Objective Exam General Appearance: no apparent distress, alert Neurologic Exam: alert, oriented x 3, cooperative, normal mood/affect, nml cerebellar function, sensation nml, No motor deficits Skin Exam: normal color, warm, dry Eye Exam: PERRL, EOMI, eyes nml inspection Ears, Nose, Throat Exam: normal ENT inspection, pharynx normal, moist mucous membranes Neck Exam: normal inspection, non-tender, supple, full range of motion Respiratory Exam: normal breath sounds, lungs clear, No respiratory distress Cardiovascular Exam: regular rate/rhythm, normal heart sounds Gastrointestinal/Abdomen Exam: soft, No tenderness, No mass Extremity Exam: normal inspection, normal range of motion Back Exam: normal inspection, normal range of motion, No CVA tenderness, No vertebral tenderness Male Genitalia Exam: deferred Rectal Exam: deferred OBJECTIVE DATA Vital Signs: Vital Signs - 24 hr Temp Pulse Resp BP Pulse Ox 08/01/20 11:47 98.1 F 74 20 144/70 94 L 08/01/20 07:47 97.8 F 70 18 154/72 95 08/01/20 04:00 98.2 F 57 L 16 131/62 96 08/01/20 00:00 97.4 F 69 20 133/71 94 L 07/31/20 20:00 97.9 F 80 18 113/59 94 L Pain Assessment - Last Documented Pain Intensity 8 Pain Scale Used 0-10 Pain Scale Intake and Output: Intake & Output 07/30/20 07/31/20 08/01/20 08/02/20 11:59 11:59 11:59 11:59 Intake Total 240 3463 120 Output Total 100 Balance 240 3463 20 Weight 77.2 kg Lab Results: Lab Results-Last 24 Hours 07/31/20 Range/Units 16:20 Troponin I < 0.012 (0.000-0.034) ng/mL Radiology Exams: Radiology Procedures Category Date Time Status ABDOMEN AND PELVIS W CONTRAST [CT] Stat Exams 07/31/20 05:29 Completed Assessment/Plan (1) Abdominal pain Current Visit: Yes Status: Acute Qualifiers: Abdominal location: generalized Qualified Code(s): R10.84 - Generalized abdominal pain Code(s): R10.9 - UNSPECIFIED ABDOMINAL PAIN (2) Cystitis Current Visit: Yes Status: Acute Code(s): N30.90 - CYSTITIS, UNSPECIFIED WITHOUT HEMATURIA (3) Nausea and vomiting Current Visit: Yes Status: Acute Code(s): R11.2 - NAUSEA WITH VOMITING, UNSPECIFIED (4) Enteritis Current Visit: No Status: Acute Code(s): K52.9 - NONINFECTIVE GASTROENTERITIS AND COLITIS, UNSPECIFIED
[2020-08-01] MEDS ORDERED: ROBINUL IV ONE (17:15)
[2020-08-02] MEDS: Sodium Chloride 0.9% 1000 ML 1,000 ML IV SCH ×2 (00:58→14:23)
[2020-08-02] MEDS: SUBLIMAZE 100 MCG/2 ML IV PRN ×4 (05:26→23:41)
[2020-08-02] MEDS: xanAX 0.5 MG PO SCH ×2 (11:23→20:30)
[2020-08-02] MEDS: Pepcid 20 MG VIAL IV SCH (11:23)
[2020-08-02] MEDS: PROTONIX 40 MG IV IV SCH (14:23)
[2020-08-02] MEDS ORDERED: Robinul 0.4 MG/2 ML IV ONE (16:00)
--- NOTE | 2020-08-02 23:00 | XRAY ---
Indication: Abdomen pain and nausea. No bowel movements 5 days. Multiple contiguous axial images obtained through the abdomen and pelvis using 80 cc Isovue 370 contrast. Comparison: July 31, 2020. Lung bases again demonstrates pulmonary emphysema without focal infiltrate or effusion. Heart is not enlarged. Noncontrasted stomach and bowel loops appear nonobstructed. Again appendectomy reported. There is mild scattered colonic fecal debris greatest in the ascending colon. Stable minimal sigmoid diverticulosis. No free fluid/air. Remaining liver, gallbladder, pancreas, spleen, adrenal glands, kidneys, ureters, and bladder remain unremarkable. Stable mild aortoiliac calcifications. No AAA or pathologic retroperitoneal lymphadenopathy. 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 Impression: 1. Stable sigmoid diverticulosis, pulmonary emphysema, and chronic bony findings. 2. No new or acute intra-abdominal/pelvic abnormalities.
[2020-08-03] MEDS: Sodium Chloride 0.9% 1000 ML 1,000 ML IV SCH (01:59)
[2020-08-03] MEDS: Pepcid 20 MG VIAL IV SCH (09:26)
[2020-08-03] MEDS: xanAX 0.5 MG PO SCH (09:26)
[2020-08-03 10:43] LABS: Absolute Neutrophil Ct (ANC) 4.26 (1.4-6.9); BASOPHIL % 0.5 % (0.0-0.4); Basophil (Absolute #) 0.04 (0-0.4); Eosinophil % 2.1 % (0.00-5.0); Eosinophil (Absolute #) 0.17 (0-0.5); Hematocrit 42.8 % (42-50); Hemoglobin 13.9 gm/dl (12.5-18.0); Lymphocyte (Absolute #) 2.35 (1.0-4.6); Lymphocytes % 29.5 % (24.0-44.0); Mean Corpuscular Hemoglobin 30.2 pg (26-32); Mean Corpuscular Hgb Concent. 32.5 g/dl (32-36); Mean Platelet Volume 12.2 fl (7.5-11.0); Monocyte (Absolute #) 1.15 (0.0-1.3); Monocytes % 14.4 % (0.0-12.0); Neutrophil % 53.5 % (36.0-66.0); Platelet Count 204 K/mm3 (150-450); Red Cell Distribution Width 13.9 % (11.5-14.0)
[2020-08-03 10:54] LABS: ALBUMIN 3.9 g/dL (3.5-5.0); ALKALINE PHOSPHATASE 74 U/L (38-126); ANION GAP 10.4 MEQ/L (5-15); BLOOD UREA NITROGEN 9 mg/dL (9-20); CHLORIDE 105 mmol/L (98-107); Calcium 8.8 mg/dL (8.4-10.2); Carbon Dioxide 25 mmol/L (22-30); Creatinine 1 0.83 mg/dL (0.66-1.25); EST GLOMERULAR FILTRATION RATE > 60.0 ML/MIN; Glucose 97 mg/dL (74-106); Potassium 4.2 mmol/L (3.5-5.1); SGOT/AST 22 U/L (17-59); SGPT/ALT 24 U/L (0-50); SODIUM 137 mmol/L (137-145)
[2020-08-03 10:58] VITALS: BP 138/70; PULSE 72; O2SAT 97
--- NOTE | 2020-08-03 11:49 | PCM.DS ---
Discharge Summary Date of Admission: 08/01/20 13:00 Admitting Physician: CHARI ALANIZ Primary Care Provider: CHARI ALANIZ Allergies Allergies No Known Drug Allergies Allergy (Verified 07/31/20 04:41) Hospital Summary - Hospital Course Hospital Course: Pt is a 64 yo male pt of Dr. Alaniz who was admitted with abd pain and enteritis. He had been vomiting at home x 2d then came in to hospital. As recently as last night he was having abd pain after eating. However, this morning her "feels great" and ate an entire plate of breakfast. Still having no pain. Would like to go home. Labs were grossly normal on admission and continue to be normal here today. - Vitals & Intake/Output Vital Signs: Vital Signs Temperature 98.2 F 08/03/20 07:00 Pulse Rate 72 08/03/20 10:58 Respiratory Rate 20 08/03/20 10:58 Blood Pressure 138/70 08/03/20 10:58 O2 Sat by Pulse Oximetry 97 08/03/20 10:58 Intake & Output: Intake & Output 07/31/20 08/01/20 08/02/20 08/03/20 11:59 11:59 11:59 11:59 Intake Total 240 3463 2623 3461 Output Total 100 Balance 240 3463 2523 3461 Weight 77.2 kg - Lab Result Diagrams: 08/03/20 10:41 08/03/20 10:41 Lab Results-Last 24 Hrs: Lab Results-Last 24 Hours 08/03/20 08/03/20 Range/Units 10:41 10:41 WBC 8.0 (4.0-10.5) K/mm3 RBC 4.60 (4.1-5.6) M/mm3 Hgb 13.9 (12.5-18.0) gm/dl Hct 42.8 (42-50) % MCV 93.0 (78-100) fl MCH 30.2 (26-32) pg MCHC 32.5 (32-36) g/dl RDW 13.9 (11.5-14.0) % Plt Count 204 (150-450) K/mm3 MPV 12.2 H (7.5-11.0) fl Gran % 53.5 (36.0-66.0) % Eos # (Auto) 0.17 (0-0.5) Absolute Lymphs (auto) 2.35 (1.0-4.6) Absolute Monos (auto) 1.15 (0.0-1.3) Lymphocytes % 29.5 (24.0-44.0) % Monocytes % 14.4 H (0.0-12.0) % Eosinophils % 2.1 (0.00-5.0) % Basophils % 0.5 (0.0-0.4) % Absolute Granulocytes 4.26 (1.4-6.9) Basophils # 0.04 (0-0.4) Sodium 137 (137-145) mmol/L Potassium 4.2 (3.5-5.1) mmol/L Chloride 105 (98-107) mmol/L Carbon Dioxide 25 (22-30) mmol/L Anion Gap 10.4 (5-15) MEQ/L BUN 9 (9-20) mg/dL Creatinine 0.83 (0.66-1.25) mg/dL Estimated GFR > 60.0 ML/MIN Glucose 97 (74-106) mg/dL Calcium 8.8 (8.4-10.2) mg/dL Total Bilirubin 0.70 (0.2-1.3) mg/dL AST 22 (17-59) U/L ALT 24 (0-50) U/L Alkaline Phosphatase 74 (38-126) U/L Serum Total Protein 7.0 (6.3-8.2) g/dL Albumin 3.9 (3.5-5.0) g/dL - Radiology Exams Ordered Rad Exams-Entire Visit: Radiology Procedures Category Date Time Status ABDOMEN AND PELVIS W CONTRAST [CT] Urgent Exams 08/02/20 15:52 Completed - Procedures and Test Procedures and Tests throughout Hospitalization: Therapy Orders & Screens 07/31/20 09:03 Smoking Cessation Education ONCE Comment: Diagnosis: intractable vomiting for 2 days Smoking Status: Current every day smoker How long have you smoked: 40 years Have you smoked in the past 12 months: Yes Approximately how many cigarettes per day: 10 Do you dip or chew tobacco: No If,Former Smoker,when did you quit: 3 weeks ago Discharge Exam General Appearance: no apparent distress, alert Neurologic Exam: oriented x 3, cooperative Eye Exam: eyes nml inspection Ears, Nose, Throat Exam: moist mucous membranes Neck Exam: normal inspection Respiratory Exam: normal breath sounds, lungs clear, No crackles/rales, No rhonchi, No wheezing Cardiovascular Exam: regular rate/rhythm, normal heart sounds, No murmur Gastrointestinal/Abdomen Exam: soft, normal bowel sounds, distention (but soft; appears chronic/obese), No tenderness, No mass, No guarding, No rebound Back Exam: normal inspection, No rash Extremity Exam: normal inspection, No pedal edema, No swelling Skin Exam: normal color, warm, dry, No rash, No jaundice Final Diagnosis/Problem List - Final Discharge Diagnosis/Problem (1) Enteritis Current Visit: No Status: Resolved Assessment & Plan: Sending pt home on 20mg protonix po daily x 14d. Code(s): K52.9 - NONINFECTIVE GASTROENTERITIS AND COLITIS, UNSPECIFIED (2) Nausea and vomiting Current Visit: Yes Status: Resolved Code(s): R11.2 - NAUSEA WITH VOMITING, UNSPECIFIED - Discharge Disposition: Home, Self-Care Condition: Good Prescriptions: New Pantoprazole 20 mg [Protonix 20MG Tablet] 20 mg PO DAILY #14 tab Continue Alprazolam 0.5 mg [xanAX 0.5 MG] 0.5 mg PO BID Melatonin 0 mg PO HS Follow up with: CHARI ALANIZ MD [Primary Care Provider] - 1 Week
== END 2020-08-03 12:55 | disposition home or self-care (01) | DRG 392 ==
LOC: ED 03:49 → MED SURG 08:26 → OBSVTOIN 08-01 13:00
PROVIDERS: ADMIT General Practice; ATTEND General Practice
DX: K52.9 Noninfective gastroenteritis and colitis, unspecified (principal); R10.9 Unspecified abdominal pain; R11.2 Nausea with vomiting, unspecified; J44.9 Chronic obstructive pulmonary disease, unspecified; N30.90 Cystitis, unspecified without hematuria; Z79.899 Other long term (current) drug therapy
CPT/HCPCS: 36000; 36415; 74177; 80053; 81001; 83690; 84484; 85025; 93005; 96360; 96361; 96374; 96376; 99285; G0008; G0378; 90662; J2270; J2405; J3010; Q0162; A9270-GY

== ENCOUNTER 2022-01-05 10:11 | Day surgery (SDC) | payer MEDICARE ==
--- NOTE | 2022-01-05 09:39 | HP ---
DATE OF SURGERY: 01/05/2022 HISTORY OF PRESENT ILLNESS: The patient is a 66-year-old with occasional right upper quadrant aches at times. Last colonoscopy five years ago. The patient is in need of follow up colonoscopy. No bloody stools. Bowel movements are normal, no changes. Family history negative for colon cancer. He had some family member of some sort of stomach cancer, sister with lung cancer, had a brother with diabetes. PAST MEDICAL HISTORY: Anxiety, reflux. PAST SURGICAL HISTORY: Open resection of duodenal lymphoma. Endoscopic ultrasound. Upper endoscopy in the past. MEDICATIONS: Xanax, Prilosec. ALLERGIES: NKDA. FAMILY HISTORY: Negative for colon cancer. He had some family member of some sort of stomach cancer, sister with lung cancer, had a brother with diabetes. SOCIAL HISTORY: One pack per day smoker, denies alcohol abuse. REVIEW OF SYSTEMS: Fourteen systems reviewed. No chest pain or palpitations. Negative or noncontributory as above and per preadmission questionnaire. PHYSICAL EXAMINATION: GENERAL: No acute distress. HEENT: Sclerae nonicteric. NECK: No JVD. CHEST: Clear to auscultation. CVS: Regular rate and rhythm. ABDOMEN: Soft. No peritoneal signs. EXTREMITIES: No significant edema. NEURO: Alert, oriented, moving extremities symmetrically. RECTAL: Deferred timed to endoscopy exam. PSYCH: Appropriate mood and affect. IMPRESSION: He is need of follow up screening colonoscopy at this time. I feel the patient is a candidate. He was shown the risk sheet, explained the procedure in detail but not limited to bleeding, infection, risk of bowel injury or perforation possibly requiring open procedure, risk of missed or nondiagnosis or incomplete exam possibly requiring barium enema, other studies or procedures, general risk of anesthesia or sedation, risk of bowel prep but not limited to, consent obtained. Will proceed with outpatient follow up screening colonoscopy.
[2022-01-05] MEDS ORDERED: Lactated Ringers 1,000 ML IV ONE (10:41)
[2022-01-05] MEDS ORDERED: Lactated Ringers 1,000 ML IV SCH (11:00)
[2022-01-05] MEDS ORDERED: Xylocaine-Mpf 2% 5 Ml Vial ONE (11:35)
[2022-01-05] MEDS ORDERED: Versed 2 MG/2 ML Injection ONE (11:35)
[2022-01-05] MEDS ORDERED: DIPRIVAN 200 MG/20 ML IV ONE (11:35)
[2022-01-05 13:14] VITALS: BP 134/64; PULSE 88; O2SAT 94
--- NOTE | 2022-01-05 15:19 | OP ---
SURGERY DATE/TIME: 01/05/2022 1139 PREOPERATIVE DIAGNOSIS: Need for follow up screening colonoscopy. POSTOPERATIVE DIAGNOSES: 1) ASA Class II. 2) Fair bowel prep. 3) Withdrawal time approximately 9 minutes. 4) Colon polyp transverse colon, sigmoid colon and rectum. 5) Diverticulosis. PROCEDURES: 1) Colonoscopy to terminal ileum. 2) Retrograde ileoscopy. 3) Hot snare polypectomy transverse colon polyp. 4) Hot biopsy polypectomy of early sigmoid colon polyps versus hyperplastic lesion x2. 5) Hot biopsy polypectomy of early rectal polyps versus hyperplastic lesion x2 removed with hot biopsy forceps. SURGEON: Dr. Adan Kc. ANESTHESIA: MAC. ESTIMATED BLOOD LOSS: Minimal. INDICATIONS: As noted above. Risks and benefits explained in detail but not limited to and consent obtained. DESCRIPTION OF PROCEDURE AND FINDINGS: The patient was taken to the endoscopy room. MAC anesthesia induced. After official time out and no disagreement with planned procedure, digital rectal exam did not reveal any rectal masses. Video colonoscope inserted and passed up through the slightly tortuous sigmoid, descending, transverse and ascending colon around to cecum. Appendiceal orifice well visualized and photo documented as well as the ileocecal valve. Scope passed up the terminal ileum, which was grossly unremarkable. The scope is then carefully withdrawn over the next 9 minutes. Prep is fair. A little bit of liquidy semi-solid and a little bit of solid stool just slightly limiting the exam for small lesions. The scope is pulled back to transverse colon. A 3.5 mm little bit elongated polyp was removed with hot snare polypectomy with very brief bursts of cautery. Good hemostasis was noted. The base appeared to be viable. The polyp was retrieved, according to staff. The scope pulled back to left colon. There were a few small diverticula. Small early polyps versus hyperplastic lesion x2 in the sigmoid and x2 in the rectum removed with hot biopsy polypectomy with brief bursts of cautery. Good hemostasis noted. I will see if he has family to discuss the findings with.
== END 2022-01-05 13:20 | disposition home or self-care (01) ==
LOC: SDC 10:11 → EDSTATUS 14:22
PROVIDERS: ATTEND Surgery
DX: Z12.11 Encounter for screening for malignant neoplasm of colon (principal); D12.3 Benign neoplasm of transverse colon; K57.30 Diverticulosis of large intestine without perforation or abscess without bleeding; Z80.1 Family history of malignant neoplasm of trachea, bronchus and lung; Z80.0 Family history of malignant neoplasm of digestive organs
CPT/HCPCS: J2250; J2704

== ENCOUNTER 2022-12-12 17:26 | Emergency (ER) | payer MEDICARE ==
--- NOTE | 2022-12-12 17:37 | ERPHSYRPT ---
- History of Present Illness Time Seen by Provider: 12/12/22 17:37 Source: patient Physician History: This is a 67-year-old white male patient of Dr. Patel who presents to the emergency department with a 5-day history of wet, productive cough and shortness of breath with even minimal exertion. He has congestion and weakness as well. No other individuals in his home have similar symptoms. He denies chest pain, he denies abdominal pain. He is a current daily smoker of cigarettes. He has a history of gastroesophageal reflux disease. He has a history of anxiety as well. Patient denies having a fever. Timing/Duration: day(s) (5) Cough Quality/Degree: mild, productive cough Possible Cause: no prior episodes Modifying Factors: Improves With: activity (Worsens), coughing, rest (Improved temporarily) Associated Symptoms: cough, shortness of breath Allergies/Adverse Reactions: No Known Drug Allergies Allergy (Verified 12/12/22 17:50) Home Medications: ALPRAZolam 0.5 MG [xanAX 0.5 MG] 0.5 mg PO BID 07/14/18 [History] Hx Tetanus, Diphtheria Vaccination/Date Given: Yes Hx Influenza Vaccination/Date Given: No Hx Pneumococcal Vaccination/Date Given: Yes Travel Risk - International Travel Have you traveled outside of the country in past 3 weeks: No - Coronavirus Screening Are you exhibiting any of the following symptoms?: Yes Symptoms: Cough: New Onset, Shortness of Breath Close contact with a COVID-19 positive Pt in past 14-21 Days: No - Review of Systems Constitutional: Weakness Eyes: No Symptoms Ears, Nose, & Throat: No Symptoms Respiratory: Cough, Dyspnea Cardiac: No Symptoms Abdominal/Gastrointestinal: No Symptoms Genitourinary Symptoms: No Symptoms Musculoskeletal: No Symptoms Skin: No Symptoms Neurological: No Symptoms Psychological: No Symptoms Endocrine: No Symptoms Hematologic/Lymphatic: No Symptoms Immunological/Allergic: No Symptoms All Other Systems: Reviewed and Negative - Past Medical History Pertinent Past Medical History: Yes Neurological History: No Pertinent History ENT History: No Pertinent History Cardiac History: No Pertinent History Respiratory History: COPD Endocrine Medical History: No Pertinent History Musculoskeletal History: No Pertinent History GI Medical History: GERD History: No Pertinent History Psycho-Social History: Anxiety Male Reproductive Disorders: No Pertinent History - Past Surgical History Past Surgical History: Yes Neuro Surgical History: No Pertinent History Cardiac: No Pertinent History Respiratory: Other Gastrointestinal: Appendectomy Genitourinary: No Pertinent History Musculoskeletal: Orthopedic Surgery Male Surgical History: No Pertinent History Other Surgical History: operation on right lung to remove nodules(benign) bilateral knee surgeries, right shoulder surgery, removed nodules from throat. removed tumor from abdomen - Social History Smoking Status: Current every day smoker How long have you smoked: 40 years Exposure to second hand smoke: Yes Drug Use: none Patient Lives Alone: No - Nursing Vital Signs Nursing Vital Signs: Initial Vital Signs Temperature 97.6 F 12/12/22 17:34 Pulse Rate 82 12/12/22 17:34 Respiratory Rate 20 12/12/22 17:34 Blood Pressure 148/80 12/12/22 17:34 O2 Sat by Pulse Oximetry 96 12/12/22 17:34 Pain Scale Pain Intensity 0 - Physical Exam General Appearance: no apparent distress, alert, anxiety, obese Eye Exam: PERRL/EOMI, eyes nml inspection Ears, Nose, Throat Exam: normal ENT inspection, moist mucous membranes Neck Exam: normal inspection, non-tender, supple, full range of motion Respiratory Exam: normal breath sounds, lungs clear, airway intact, No chest tenderness, No respiratory distress Cardiovascular Exam: regular rate/rhythm, normal heart sounds, normal peripheral pulses Gastrointestinal/Abdomen Exam: soft, normal bowel sounds, No tenderness Rectal Exam: not done Back Exam: normal inspection, normal range of motion, No CVA tenderness, No vertebral tenderness Extremity Exam: normal inspection, normal range of motion, pelvis stable Neurologic Exam: alert, oriented x 3, cooperative, baker pie II-XII nml as tested, normal mood/affect, nml cerebellar function, nml station & gait, sensation nml Skin Exam: normal color, warm, dry Lymphatic Exam: No adenopathy SpO2 Interpretation: normal O2 Delivery: Room Air - Course Nursing assessment & vital signs reviewed: Yes EKG Interpreted by Me: RATE (77), Sinus Rhythm, NORMAL AXIS, NORMAL INTERVALS, NORMAL QRS, NORMAL ST-T, Other (No acute ischemic changes on today's twelve-lead EKG) Ordered Tests: Active Orders 24 hr Category Date Time Status EKG-ER Only STAT Care 12/12/22 17:42 Active IV Insertion STAT Care 12/12/22 17:42 Active Pulse Oximetry (ED) STAT Care 12/12/22 17:42 Active CHEST 1 VIEW (PORTABLE) Stat Exams 12/12/22 17:43 Completed CHEST WITH CONTRAST [CT] Stat Exams 12/12/22 19:40 Taken CBC W DIFF Stat Lab 12/12/22 18:56 Completed CMP Stat Lab 12/12/22 18:58 Completed D-DIMER QUANTITATIVE Stat Lab 12/12/22 18:56 Completed NT PRO BNPII Stat Lab 12/12/22 18:58 Completed TROPONIN Q4H Lab 12/12/22 18:56 Completed TROPONIN Q4H Lab 12/12/22 21:45 Ordered TROPONIN Q4H Lab 12/13/22 01:45 Ordered Medication Summary Discontinued Medications Generic Name Dose Route Start Last Admin Trade Name Freq PRN Reason Stop Dose Admin Sodium Chloride 500 mls @ 500 mls/hr 12/12/22 19:41 12/12/22 20:56 Sodium Chloride 0.9% 500 Ml IV 12/12/22 20:40 Infused .Q1H ONE Infusion Sodium Chloride Confirm 12/12/22 19:45 Sodium Chloride 0.9% 500 Ml Administered 12/12/22 19:46 Dose 500 mls @ ud IV .STK-MED ONE Lab/Rad Data: Laboratory Result Diagrams 12/12/22 18:56 12/12/22 18:58 Laboratory Results 12/12/22 12/12/22 12/12/22 Range/Units 18:58 18:56 18:56 WBC (4.0-10.5) x10^3/uL RBC (4.1-5.6) x10^6/uL Hgb (12.5-18.0) g/dL Hct (42-50) % MCV (78-100) fL MCH (26-32) pg MCHC (32-36) g/dL RDW (11.5-14.0) % Plt Count (150-450) x10^3/uL MPV (7.5-11.0) fL Gran % (36.0-66.0) % Immature Gran % (Auto) (0.00-0.4) % Nucleat RBC Rel Count (0.00-0.1) % Eos # (Auto) (0-0.5) x10^3/uL Immature Gran # (Auto) (0.00-0.03) x10^3u/L Absolute Lymphs (auto) (1.0-4.6) x10^3/uL Absolute Monos (auto) (0.0-1.3) x10^3/uL Absolute Nucleated RBC (0.00-0.01) x10^3u/L Lymphocytes % (24.0-44.0) % Monocytes % (0.0-12.0) % Eosinophils % (0.00-5.0) % Basophils % (0.0-0.4) % Absolute Granulocytes (1.4-6.9) x10^3/uL Basophils # (0-0.4) x10^3/uL D-Dimer (0.0-0.50) mg/L Sodium 141 (137-145) mmol/L Potassium 4.3 (3.5-5.1) mmol/L Chloride 104 (98-107) mmol/L Carbon Dioxide 30 (22-30) mmol/L Anion Gap 11.0 (5-15) MEQ/L BUN 12 (9-20) mg/dL Creatinine 0.76 (0.66-1.25) mg/dL Estimated GFR > 60.0 ML/MIN Glucose 96 (74-106) mg/dL Calcium 8.4 (8.4-10.2) mg/dL Total Bilirubin 0.30 (0.2-1.3) mg/dL AST 23 (17-59) U/L ALT 20 (0-50) U/L Alkaline Phosphatase 69 (38-126) U/L Troponin I < 0.012 (0.000-0.034) ng/mL NT-Pro-B Natriuret Pep 47.6 (<300) pg/mL Serum Total Protein 7.0 (6.3-8.2) g/dL Albumin 3.9 (3.5-5.0) g/dL Influenza Type A Ag NEGATIVE (NEGATIVE) Influenza Type B Ag NEGATIVE (NEGATIVE) RSV (PCR) NEGATIVE (Negative) SARS-CoV-2 (PCR) NEGATIVE (NEGATIVE) 12/12/22 12/12/22 Range/Units 18:56 18:56 WBC 8.6 (4.0-10.5) x10^3/uL RBC 4.60 (4.1-5.6) x10^6/uL Hgb 13.9 (12.5-18.0) g/dL Hct 44.3 (42-50) % MCV 96.3 (78-100) fL MCH 30.2 (26-32) pg MCHC 31.4 L (32-36) g/dL RDW 13.7 (11.5-14.0) % Plt Count 243 (150-450) x10^3/uL MPV 11.1 H (7.5-11.0) fL Gran % 45.9 (36.0-66.0) % Immature Gran % (Auto) 0.4 (0.00-0.4) % Nucleat RBC Rel Count 0.0 (0.00-0.1) % Eos # (Auto) 0.31 (0-0.5) x10^3/uL Immature Gran # (Auto) 0.03 (0.00-0.03) x10^3u/L Absolute Lymphs (auto) 3.52 (1.0-4.6) x10^3/uL Absolute Monos (auto) 0.68 (0.0-1.3) x10^3/uL Absolute Nucleated RBC 0.00 (0.00-0.01) x10^3u/L Lymphocytes % 41.1 (24.0-44.0) % Monocytes % 7.9 (0.0-12.0) % Eosinophils % 3.6 (0.00-5.0) % Basophils % 1.1 (0.0-0.4) % Absolute Granulocytes 3.93 (1.4-6.9) x10^3/uL Basophils # 0.09 (0-0.4) x10^3/uL D-Dimer 0.89 H* (0.0-0.50) mg/L Sodium (137-145) mmol/L Potassium (3.5-5.1) mmol/L Chloride (98-107) mmol/L Carbon Dioxide (22-30) mmol/L Anion Gap (5-15) MEQ/L BUN (9-20) mg/dL Creatinine (0.66-1.25) mg/dL Estimated GFR ML/MIN Glucose (74-106) mg/dL Calcium (8.4-10.2) mg/dL Total Bilirubin (0.2-1.3) mg/dL AST (17-59) U/L ALT (0-50) U/L Alkaline Phosphatase (38-126) U/L Troponin I (0.000-0.034) ng/mL NT-Pro-B Natriuret Pep (<300) pg/mL Serum Total Protein (6.3-8.2) g/dL Albumin (3.5-5.0) g/dL Influenza Type A Ag (NEGATIVE) Influenza Type B Ag (NEGATIVE) RSV (PCR) (Negative) SARS-CoV-2 (PCR) (NEGATIVE) - Progress Progress: improved, re-examined Air Movement: good Progress Note: 12/12/22 18:27 Chest x-ray interpreted by me. Increased vascular markings versus scarring. No definite infiltrate. No cardiomegaly. No pleural effusions. 12/12/22 20:59 This patient's medical issues of moderate complexity. This is based on the patient's medical history, review of patient's medication list and the complaint as well as history of present illness and physical findings on examination. We opted to place an IV, provide the patient with intravenous fluids, obtain a twelve-lead EKG and draw blood work. We reviewed the results and the patient had an elevated D-dimer. Therefore, we ordered a CT scan of the chest with contrast to evaluate for pulmonary embolus. He does not have any chest x-ray f indings of acute infiltrate. His lab work was normal as was the CT of the chest with contrast with the exception of a left upper lobe tiny 1/[address] of the chest is recommended in 6 to 12 months. He also has some chronic changes of centrilobular emphysema. We will treat the patient as though he has a bronchitis and provide him with steroids and an antitussive medication. He will follow-up with his primary care provider for further evaluation management. Counseled pt/family regarding: lab results, diagnosis, rad results Medical Desision Making - Independent Historian Additional History obtained from: Spouse - Discussion of managment Reviewed:: Test results Agreed on:: Treatment plan, need for follow-up - Diagnostic Testing Diagnostic test were ordered, analyzed, and reviewed by me: Yes Radiological Interpretation: Interpreted by me, Reviewed by me, Teleradiologist Report - Risk of complications Low Risk: Low risk of morbidity from additional dx testing or treatment - Departure Departure Disposition: Home Clinical Impression: Bronchitis, Left upper lobe pulmonary nodule Condition: Stable Critical Care Time: No Referrals: KATTY,CHARI, MD [Primary Care Provider] - Follow up/PCP as directed Prescriptions: Hydrocodone/Acetaminophen [Hydrocodone-Acetamn 7.5-325/15] 10 ml PO Q8H PRN PRN #120 ml MDD 30 ml PRN Reason: Cough Prednisone 10 mg [Deltasone 10 mg] 10 mg PO TID #12 tablet
[2022-12-12 19:00] LABS: Absolute Neutrophil Ct (ANC) 3.93 x10^3/uL (1.4-6.9); BASOPHIL % 1.1 % (0.0-0.4); Basophil (Absolute #) 0.09 x10^3/uL (0-0.4); Eosinophil % 3.6 % (0.00-5.0); Eosinophil (Absolute #) 0.31 x10^3/uL (0-0.5); Hematocrit 44.3 % (42-50); Hemoglobin 13.9 g/dL (12.5-18.0); IMMATURE GRAN # 0.03 x10^3u/L (0.00-0.03); IMMATURE GRAN % 0.4 % (0.00-0.4); Lymphocyte (Absolute #) 3.52 x10^3/uL (1.0-4.6); Lymphocytes % 41.1 % (24.0-44.0); Mean Cell Volume 96.3 fL (78-100); Mean Corpuscular Hemoglobin 30.2 pg (26-32); Mean Corpuscular Hgb Concent. 31.4 g/dL (32-36); Mean Platelet Volume 11.1 fL (7.5-11.0); Monocyte (Absolute #) 0.68 x10^3/uL (0.0-1.3); Monocytes % 7.9 % (0.0-12.0); Neutrophil % 45.9 % (36.0-66.0); Platelet Count 243 x10^3/uL (150-450); Red Cell Distribution Width 13.7 % (11.5-14.0); White Blood Count 8.6 x10^3/uL (4.0-10.5)
[2022-12-12 19:29] LABS: ALBUMIN 3.9 g/dL (3.5-5.0); ALKALINE PHOSPHATASE 69 U/L (38-126); BLOOD UREA NITROGEN 12 mg/dL (9-20); CHLORIDE 104 mmol/L (98-107); Calcium 8.4 mg/dL (8.4-10.2); Carbon Dioxide 30 mmol/L (22-30); Creatinine 1 0.76 mg/dL (0.66-1.25); EST GLOMERULAR FILTRATION RATE > 60.0 ML/MIN; Glucose 96 mg/dL (74-106); NT PRO BNPII 47.6 pg/mL (<300); Potassium 4.3 mmol/L (3.5-5.1); SGOT/AST 23 U/L (17-59); SGPT/ALT 20 U/L (0-50); SODIUM 141 mmol/L (137-145)
[2022-12-12 19:37] LABS: INFLUENZA A NEGATIVE (NEGATIVE); INFLUENZA B NEGATIVE (NEGATIVE); RESPIRATORY SYNCTIAL VIRUS NEGATIVE (Negative); SARS-CoV-2 Xpert Express NEGATIVE (NEGATIVE)
[2022-12-12] MEDS ORDERED: Sodium Chloride 0.9% 500 ML 500 ML IV ONE ×2 (19:41→19:45)
--- NOTE | 2022-12-12 20:25 | XRAY ---
Indication: Cough and congestion. Comparison: July 01, 2021 Portable chest again hyperinflated with new mild left infrahilar interstitial alveolar opacities. Remaining heart and lungs unremarkable. Bony thorax intact again with osteopenia and mild degenerative changes.
[2022-12-12] MEDS ORDERED: solu-MEDROL 125 MG, Sterile H2O 10 ml 2 ML IV ONE ×2 (20:58)
[2022-12-12] MEDS ORDERED: HYDROCODONE-ACETAMIN 2.5-108/5 ML SOLUTION PO STA (20:59)
[2022-12-12 21:05] VITALS: BP 161/84; PULSE 74; O2SAT 97
[2022-12-12] MEDS ORDERED: Sterile H2O 10 ml IJ ONE (21:05)
[2022-12-12] MEDS ORDERED: HYDROCODONE-ACETAMIN 2.5-108/5 ML SOLUTION ONE (21:05)
[2022-12-12] MEDS ORDERED: solu-MEDROL ONE (21:05)
--- NOTE | 2022-12-13 07:59 | XRAY ---
Indication: Cough and short of breath. Elevated d-dimer. Multiple contiguous axial images obtained through the chest using 100 cc Isovue 370 contrast and PE protocol. Comparison: None Good opacification of the pulmonary arteries to include the lobar and segmental branches. No pulmonary embolus. Heart not enlarged. Aorta is mildly arteriosclerotic without aneurysm/dissection. Small distal paratracheal calcified node. No pathologic mediastinal/hilar lymphadenopathy. Lungs demonstrates diffuse centrilobular pulmonary emphysema and right upper lobe fibrosis/scarring. No suspicious pulmonary mass/nodule, infiltrate, or effusion. Bony thorax intact with mild degenerative changes throughout the spine. Limited upper abdomen including adrenal glands are unremarkable. Impression: 1. Negative pulmonary embolus. No acute cardiopulmonary abnormalities. 2. Diffuse pulmonary emphysema, fibrosis/scarring, and old granulomatous disease. Comment: Preliminary interpretation made by [facility]. No critical discrepancy.
== END 2022-12-12 21:28 | disposition home or self-care (01) ==
LOC: ED 17:26
DX: J40 Bronchitis, not specified as acute or chronic (principal); R91.1 Solitary pulmonary nodule; R05.1 Acute cough; R06.02 Shortness of breath; R53.1 Weakness; R09.81 Nasal congestion; Z79.891 Long term (current) use of opiate analgesic; Z79.52 Long term (current) use of systemic steroids; Z72.0 Tobacco use
CPT/HCPCS: 0241U; 36000; 36415; 71045; 71260; 80053; 83880; 84484; 85025; 85379; 93005; 94760; 96360; 96374; 99284; J2930; A9270-GY

== ENCOUNTER 2024-06-07 14:28 | Inpatient (IN) | payer MEDICARE ==
[2024-06-07] MEDS ORDERED: Sodium Chloride 0.9% 1000 ML 1,000 ML ONE (14:42)
[2024-06-07] MEDS ORDERED: TYLENOL 325 MG ONE (14:42)
[2024-06-07] MEDS: TYLENOL 325 MG PO STA (14:46)
--- NOTE | 2024-06-07 14:46 | ERPHSYRPT ---
- History of Present Illness Time Seen by Provider: 06/07/24 14:42 Source: patient Physician History: 68-year-old male with history of COPD presents to our ED for evaluation of cough shortness of breath fever and chills. Symptoms started today. Symptoms have been progressive. No associated chest pain. No nausea vomiting diaphoresis no rash no fever. Symptoms are progressive. Symptoms are moderate in intensity. No specific worsening or improving factors. Patient's states that she has similar symptoms but not as bad. He has not taken any antipyretics or medications prior to arrival. Patient/ voices no other complaints or concerns at this time. Portions of this note were created with voice recognition technology. There may be grammatical, spelling, punctuation or sound alike errors Timing/Duration: today Severity: moderate Modifying Factors: Improves With: nothing Associated Symptoms: chills Allergies/Adverse Reactions: No Known Drug Allergies Allergy (Verified 06/07/24 14:36) Home Medications: ALPRAZolam [Alprazolam] 0.5 mg PO TID 06/07/24 [History] Atorvastatin Calcium [Lipitor 20MG Tablet] 20 mg PO HS 06/07/24 [History] Fluticasone/Umeclidin/Vilanter [Trelegy Ellipta 100-62.5-25] 1 puff PO DAILY 0 06/07/24 [History] Hx Tetanus, Diphtheria Vaccination/Date Given: Yes Hx Influenza Vaccination/Date Given: No Hx Pneumococcal Vaccination/Date Given: Yes - Review of Systems Constitutional: No Symptoms, Fever, Chills Eyes: No Symptoms Ears, Nose, & Throat: No Symptoms Respiratory: No Cough, No Dyspnea Cardiac: No Chest Pain, No Edema, No Syncope Abdominal/Gastrointestinal: No Symptoms, No Abdominal Pain, No Nausea, No Vomiting, No Diarrhea Genitourinary Symptoms: No Symptoms, No Dysuria Musculoskeletal: No Symptoms, No Back Pain, No Neck Pain Skin: No Symptoms, No Rash Neurological: No Symptoms, No Dizziness, No Focal Weakness, No Sensory Changes Psychological: No Symptoms Endocrine: No Symptoms Hematologic/Lymphatic: No Symptoms Immunological/Allergic: No Symptoms All Other Systems: Reviewed and Negative - Past Medical History Pertinent Past Medical History: Yes Neurological History: No Pertinent History ENT History: No Pertinent History Cardiac History: No Pertinent History Respiratory History: COPD Endocrine Medical History: No Pertinent History Musculoskeletal History: No Pertinent History GI Medical History: GERD History: No Pertinent History Psycho-Social History: Anxiety Male Reproductive Disorders: No Pertinent History - Past Surgical History Past Surgical History: Yes Neuro Surgical History: No Pertinent History Cardiac: No Pertinent History Respiratory: Other Gastrointestinal: Appendectomy Genitourinary: No Pertinent History Musculoskeletal: Orthopedic Surgery Male Surgical History: No Pertinent History Other Surgical History: operation on right lung to remove nodules(benign) bilateral knee surgeries, right shoulder surgery, removed nodules from throat. removed tumor from abdomen - Social History Smoking Status: Current every day smoker How long have you smoked: 40 years Exposure to second hand smoke: Yes Drug Use: none Patient Lives Alone: No - Nursing Vital Signs Nursing Vital Signs: Initial Vital Signs Pulse Rate 100 H 06/07/24 14:36 Respiratory Rate 12 06/07/24 14:36 Blood Pressure 121/102 06/07/24 14:36 O2 Sat by Pulse Oximetry 94 L 06/07/24 14:36 Pain Scale Pain Intensity 0 - Physical Exam General Appearance: no apparent distress, alert Eye Exam: PERRL/EOMI, eyes nml inspection Ears, Nose, Throat Exam: normal ENT inspection, TMs normal, pharynx normal, moist mucous membranes Neck Exam: normal inspection, non-tender, supple, full range of motion Respiratory Exam: lungs clear, airway intact, diminished breath sounds, No respiratory distress Cardiovascular Exam: regular rate/rhythm, normal heart sounds, normal peripheral pulses Gastrointestinal/Abdomen Exam: soft, normal bowel sounds, No tenderness, No mass Back Exam: normal inspection, normal range of motion, No CVA tenderness, No vertebral tenderness Extremity Exam: normal inspection, normal range of motion, pelvis stable Neurologic Exam: alert, oriented x 3, cooperative, normal mood/affect, nml cerebellar function, nml station & gait, sensation nml, No motor deficits Skin Exam: normal color, warm, dry, No rash Lymphatic Exam: No adenopathy SpO2 Interpretation: normal O2 Delivery: Room Air - Course Nursing assessment & vital signs reviewed: Yes EKG Interpreted by Me: RATE (102), Sinus Tach, Right [place] Deviation, NORMAL INTERVALS, NORMAL QRS - Radiology Exams Chest X-ray Interpretation: Teleradiologist Report (Left base interstitial opacity) Ordered Tests: Active Orders 24 hr Category Date Time Status Hot Box Operator STAT Care 06/07/24 14:40 Active EKG-ER Only STAT Care 06/07/24 14:39 Active IV Insertion STAT Care 06/07/24 14:39 Active Pulse Oximetry (ED) STAT Care 06/07/24 14:39 Active CHEST 1 VIEW (PORTABLE) Stat Exams 06/07/24 14:40 Completed BLOOD CULTURE Stat Lab 06/07/24 15:00 Received CBC W DIFF Stat Lab 06/07/24 14:39 Completed CMP Stat Lab 06/07/24 14:45 Completed Lactic Acid Stat Lab 06/07/24 14:39 Completed UA W/RFX UR CULTURE Stat Lab 06/07/24 14:39 Ordered Respiratory Therapy Assessment DAILY RT 06/07/24 14:58 Active Transfer Order Routine Transfer 06/07/24 Ordered Medication Summary Generic Name Dose Route Start Last Admin Trade Name Freq PRN Reason Stop Dose Admin Sodium Chloride 1,000 mls @ 100 mls/hr 06/07/24 14:45 06/07/24 14:51 Sodium Chloride 0.9% 1000 Ml IV 07/07/24 14:44 100 mls/hr .Q10H CHRISSY Administration Discontinued Medications Generic Name Dose Route Start Last Admin Trade Name Freq PRN Reason Stop Dose Admin Acetaminophen 975 mg 06/07/24 14:39 06/07/24 14:46 Acetaminophen 325 Mg Tablet PO 06/07/24 14:40 975 mg STAT STA Administration Acetaminophen Confirm 06/07/24 14:42 Acetaminophen 325 Mg Tablet Administered 06/07/24 14:43 Dose 975 mg .ROUTE .STK-MED ONE Albuterol/Ipratropium 3 ml 06/07/24 14:44 06/07/24 14:57 Ipratropium/Albuterol Sulfate 3 Ml Ampul.Neb IH 06/07/24 14:45 3 ml STAT ONE Administration Albuterol/Ipratropium Confirm 06/07/24 14:53 Ipratropium/Albuterol Sulfate 3 Ml Ampul.Neb Administered 06/07/24 14:54 Dose 3 ml IH .STK-MED ONE Methylprednisolone Sodium 0 mg 06/07/24 14:44 06/07/24 14:58 Succinate 125 mg/ Sterile IV 06/07/24 14:45 125 mg Water 2 ml STAT ONE Administration Ceftriaxone Sodium 2 gm in 100 mls @ 200 mls/hr 06/07/24 14:45 06/07/24 16:01 Rocephin 2 Gm/100 Ml Nacl IV 06/07/24 15:14 Infused STAT ONE Infusion Azithromycin 500 mg in 250 mls @ 250 mls/hr 06/07/24 14:45 06/07/24 15:44 Zithromax 500 Mg/ 250 Ml Nacl Premix IV 06/07/24 15:44 250 mls/hr STAT ONE Administration Ceftriaxone Sodium Confirm 06/07/24 14:54 Rocephin 2 Gm/100 Ml Nacl Administered 06/07/24 14:55 Dose 2 gm in 100 mls @ ud IV .STK-MED ONE Azithromycin Confirm 06/07/24 15:41 Zithromax 500 Mg/ 250 Ml Nacl Premix Administered 06/07/24 15:42 Dose 500 mg in 250 mls @ ud IV .STK-MED ONE Methylprednisolone Sodium Succinate Confirm 06/07/24 14:54 Methylprednis Sod Succ 125 Mg/2 Ml Vial Administered 06/07/24 14:55 Dose 125 mg .ROUTE .STK-MED ONE Sterile Water Confirm 06/07/24 14:54 Water For Injection,Sterile 10 Ml Vial Administered 06/07/24 14:55 Dose 10 ml IJ .STK-MED ONE Lab/Rad Data: Laboratory Result Diagrams 06/07/24 14:39 06/07/24 14:45 Laboratory Results 06/07/24 06/07/24 06/07/24 Range/Units 14:45 14:45 14:39 WBC (4.23-9.07) x10^3/uL RBC (4.63-6.08) x10^6/uL Hgb (13.7-17.5) g/dL Hct (40.1-51.0) % MCV (79.0-92.2) fL MCH (25.7-32.2) pg MCHC (32.3-36.5) g/dL RDW (11.6-14.4) % Plt Count (163-337) x10^3/uL MPV (9.4-12.4) fL Gran % (34.0-67.9) % Immature Gran % (Auto) (0.001-0.429) % Nucleat RBC Rel Count (0.00-0.2) % Eos # (Auto) (0.04-0.54) x10^3/uL Immature Gran # (Auto) (0.001-0.031) x10^3u/L Absolute Lymphs (auto) (1.32-3.57) x10^3/uL Absolute Monos (auto) (0.30-0.82) x10^3/uL Absolute Nucleated RBC (0.00-0.012) x10^3u/L Lymphocytes % (21.8-53.1) % Monocytes % (5.3-12.2) % Eosinophils % (0.8-7.0) % Basophils % (0.2-1.2) % Absolute Granulocytes (1.78-5.38) x10^3/uL Basophils # (0.01-0.08) x10^3/uL Sodium 135 (135-145) mmol/L Potassium 4.3 (3.5-5.1) mmol/L Chloride 101 (98-107) mmol/L Carbon Dioxide 25 (22-30) mmol/L Anion Gap 12.5 (5-15) MEQ/L BUN 13 (9-20) mg/dL Creatinine 1.11 (0.66-1.25) mg/dL Estimated GFR 71.9 ML/MIN Glucose 97 (74-106) mg/dL Lactic Acid 1.1 (0.4-2.0) Calcium 9.0 (8.4-10.2) mg/dL Total Bilirubin 0.60 (0.2-1.3) mg/dL AST 26 (17-59) U/L ALT 29 (0-50) U/L Alkaline Phosphatase 75 (38-126) U/L Serum Total Protein 7.3 (6.3-8.2) g/dL Albumin 4.2 (3.5-5.0) g/dL Influenza Type A Ag NEGATIVE (NEGATIVE) Influenza Type B Ag NEGATIVE (NEGATIVE) RSV (PCR) NEGATIVE (NEGATIVE) SARS-CoV-2 (PCR) POSITIVE A (NEGATIVE) 06/07/24 Range/Units 14:39 WBC 7.6 (4.23-9.07) x10^3/uL RBC 4.71 (4.63-6.08) x10^6/uL Hgb 14.3 (13.7-17.5) g/dL Hct 43.8 (40.1-51.0) % MCV 93.0 H (79.0-92.2) fL MCH 30.4 (25.7-32.2) pg MCHC 32.6 (32.3-36.5) g/dL RDW 13.2 (11.6-14.4) % Plt Count 186 (163-337) x10^3/uL MPV 11.8 (9.4-12.4) fL Gran % 67.0 (34.0-67.9) % Immature Gran % (Auto) 0.4 (0.001-0.429) % Nucleat RBC Rel Count 0.0 (0.00-0.2) % Eos # (Auto) 0.04 (0.04-0.54) x10^3/uL Immature Gran # (Auto) 0.03 (0.001-0.031) x10^3u/L Absolute Lymphs (auto) 1.38 (1.32-3.57) x10^3/uL Absolute Monos (auto) 1.00 H (0.30-0.82) x10^3/uL Absolute Nucleated RBC 0.00 (0.00-0.012) x10^3u/L Lymphocytes % 18.2 L (21.8-53.1) % Monocytes % 13.2 H (5.3-12.2) % Eosinophils % 0.5 L (0.8-7.0) % Basophils % 0.7 (0.2-1.2) % Absolute Granulocytes 5.08 (1.78-5.38) x10^3/uL Basophils # 0.05 (0.01-0.08) x10^3/uL Sodium (135-145) mmol/L Potassium (3.5-5.1) mmol/L Chloride (98-107) mmol/L Carbon Dioxide (22-30) mmol/L Anion Gap (5-15) MEQ/L BUN (9-20) mg/dL Creatinine (0.66-1.25) mg/dL Estimated GFR ML/MIN Glucose (74-106) mg/dL Lactic Acid (0.4-2.0) Calcium (8.4-10.2) mg/dL Total Bilirubin (0.2-1.3) mg/dL AST (17-59) U/L ALT (0-50) U/L Alkaline Phosphatase (38-126) U/L Serum Total Protein (6.3-8.2) g/dL Albumin (3.5-5.0) g/dL Influenza Type A Ag (NEGATIVE) Influenza Type B Ag (NEGATIVE) RSV (PCR) (NEGATIVE) SARS-CoV-2 (PCR) (NEGATIVE) - Progress Progress: improved Progress Note: 68-year-old history of COPD male presents to our ED with his for evaluation of fever chills shortness of breath generalized weakness. Physical exam reveals diminished breath sounds. Chest x-ray reveals left lower lobe pneumonia. Patient is COVID-positive. Blood cultures obtained. Rocephin and azithromycin infused. Patient received a DuoNeb and Solu-Medrol for shortness of breath. Patient reassessed. He feels better. Patient not ready for discharge. Will admit for further evaluation and treatment. Case discussed with hospitalist Dr. Ware who accepts admission to observation at 4:10 PM. Plan of care discussed with patient and . They agree to admission to [facility] for further evaluation and treatment. Portions of this note were created with voice recognition technology. There may be grammatical, spelling, punctuation or sound alike errors Complexity problem addressed is moderate acute complicated. No critical care time. Complex of data reviewed and analyzed is extensive. Test ordered test reviewed results analyzed and correlated clinically with history and physical exam. Management discussed with hospitalist who accepts admission to observation at 4:10 PM. Risk of complication and or risk of morbidity/mortality of patient management is high. Patient requires hospitalization for further evaluation and treatment. Vital stable. Time spent admit patient is approximately 20 minutes. Plan of care established for shared decision making. No social determinants of health present to impede follow-up. Portions of this note were created with voice recognition technology. There may be grammatical, spelling, punctuation or sound alike errors 06/07/24 16:[address] Other Counseled pt/family regarding: lab results, diagnosis, rad results - Departure Departure Disposition: Observation Clinical Impression: Cough, SOB (shortness of breath), Fever, COVID-19, Pneumonia Condition: Stable Critical Care Time: No Referrals: CHARI ALANIZ MD [Primary Care Provider] - Follow up/PCP as directed Forms: Work/School Release Form
[2024-06-07] MEDS: Sodium Chloride 0.9% 1000 ML 1,000 ML IV SCH (14:51)
[2024-06-07] MEDS ORDERED: DUONEB 0.5-3 MG/3 ml Neb IH ONE (14:53)
[2024-06-07] MEDS ORDERED: solu-MEDROL ONE (14:54)
[2024-06-07] MEDS ORDERED: ROCEPHIN 2 GM/100 ML NACL 2 GM/100 ML IVPB IV ONE (14:54)
[2024-06-07] MEDS ORDERED: Sterile H2O 10 ml IJ ONE (14:54)
[2024-06-07] MEDS: DUONEB 0.5-3 MG/3 ml Neb IH ONE (14:57)
[2024-06-07] MEDS: solu-MEDROL 125 MG, Sterile H2O 10 ml 2 ML IV ONE (14:58)
[2024-06-07] MEDS: ROCEPHIN 2 GM/100 ML NACL 2 GM/100 ML IVPB IV ONE (14:59)
[2024-06-07 15:05] LABS: Absolute Neutrophil Ct (ANC) 5.08 x10^3/uL (1.78-5.38); BASOPHIL % 0.7 % (0.2-1.2); Basophil (Absolute #) 0.05 x10^3/uL (0.01-0.08); Eosinophil % 0.5 % (0.8-7.0); Eosinophil (Absolute #) 0.04 x10^3/uL (0.04-0.54); Hematocrit 43.8 % (40.1-51.0); Hemoglobin 14.3 g/dL (13.7-17.5); IMMATURE GRAN # 0.03 x10^3u/L (0.001-0.031); IMMATURE GRAN % 0.4 % (0.001-0.429); Lymphocyte (Absolute #) 1.38 x10^3/uL (1.32-3.57); Lymphocytes % 18.2 % (21.8-53.1); Mean Corpuscular Hemoglobin 30.4 pg (25.7-32.2); Mean Corpuscular Hgb Concent. 32.6 g/dL (32.3-36.5); Mean Platelet Volume 11.8 fL (9.4-12.4); Monocytes % 13.2 % (5.3-12.2); Platelet Count 186 x10^3/uL (163-337); Red Blood Count 4.71 x10^6/uL (4.63-6.08); Red Cell Distribution Width 13.2 % (11.6-14.4); White Blood Count 7.6 x10^3/uL (4.23-9.07)
--- NOTE | 2024-06-07 15:17 | XRAY ---
Indication: Fever, cough, and short of breath. Comparison: May 11, 2023 Portable chest now slightly rotated with new mild left base hazy interstitial alveolar opacities. Remaining lungs clear again with COPD. Heart not enlarged. Enlarged Bony thorax intact again with osteopenia and degenerative changes.
[2024-06-07 15:34] LABS: ALBUMIN 4.2 g/dL (3.5-5.0); ANION GAP 12.5 MEQ/L (5-15); BILIRUBIN,TOTAL 0.6 mg/dL (0.2-1.3); Creatinine 1 1.11 mg/dL (0.66-1.25); EST GLOMERULAR FILTRATION RATE 71.9 ML/MIN; Potassium 4.3 mmol/L (3.5-5.1); Total Protein 7.3 g/dL (6.3-8.2)
[2024-06-07] MEDS ORDERED: Zithromax 500 MG/ 250 ML NaCl Premix 500 MG/250 ML IVPB IV ONE (15:41)
[2024-06-07] MEDS: Zithromax 500 MG/ 250 ML NaCl Premix 500 MG/250 ML IVPB IV ONE (15:44)
[2024-06-07 15:50] LABS: INFLUENZA A NEGATIVE (NEGATIVE); INFLUENZA B NEGATIVE (NEGATIVE); RESPIRATORY SYNCTIAL VIRUS NEGATIVE (NEGATIVE)
[2024-06-07 15:54] LABS: SARS-CoV-2 Xpert Express POSITIVE (NEGATIVE)
--- NOTE | 2024-06-07 17:33 | PCM.HP ---
History of Present Illness - Chief Complaint Chief Complaint: COVID 19 positive, pneumonia, COPD exacerbation Date: 06/07/24 History of Present Illness: is a 68 year old malewith a pmhx of HLD, COPD , GERD, and anxiety who presented to ED 06/07/24 with complaints of a one day history of fever, chills, and shortness of breath. Patient reports that he started with body aches yesterday evening and by this morning he has fever and chills. He also endorses a mild headache, dizziness, a productive cough with yellow sputum and wheezing on expiration. Denies cp, abdominal pain, N/V/D. Upon arrival to ED, patient was tachycardic, hypertensive and febrile at 101.8. CXR demonstrates a new mild left base hazy interstitial alveolar opacities. Chemistry and CBC unremarkable. Covid testing positive. Admission for COVID pneumonia. Patient received ceftriaxone/azithromycin and solumedrol in ED. Will continue antibiotics, steroids, and remdesivir. - Review of Systems Constitutional: Fever, Chills, Weakness Eyes: No Symptoms Ears, Nose, & Throat: Nose Congestion Respiratory: Cough, Short Of Breath Cardiac: No Symptoms Abdominal/Gastrointestinal: No Symptoms Genitourinary Symptoms: No Symptoms Musculoskeletal: No Symptoms Skin: No Symptoms Neurological: Dizziness, Headache Psychological: No Symptoms Endocrine: No Symptoms Hematologic/Lymphatic: No Symptoms Immunological/Allergic: No Symptoms Medications & Allergies Home Medications: Home Medication List ALPRAZolam [Alprazolam] 0.5 mg PO TID 06/07/24 [History Confirmed 06/07/24] Atorvastatin Calcium [Lipitor 20MG Tablet] 20 mg PO HS 06/07/24 [History Confirmed 06/07/24] Fluticasone/Umeclidin/Vilanter [Trelegy Ellipta 100-62.5-25] 1 puff PO DAILY 06/07/24 [History Confirmed 06/07/24] Allergies/Adverse Reactions: Allergies Allergy/AdvReac Type Severity Reaction Status Date / Time No Known Drug Allergies Allergy Verified 06/07/24 14:36 - Past Medical History Past Medical History: Yes Neurological History: No Pertinent History ENT History: No Pertinent History Cardiac History: No Pertinent History Respiratory History: COPD, Sleep Apnea Endocrine Medical History: No Pertinent History Musculoskelatal History: No Pertinent History GI Medical History: GERD History: No Pertinent History Pyscho-Social History: Anxiety Male Reproductive Disorders: No Pertinent History - Past Surgical History Past Surgical History: Yes Neuro Surgical History: No Pertinent History Cardiac History: No Pertinent History Respiratory Surgery: Other GI Surgical History: Appendectomy Genitourinary Surgical Hx: No Pertinent History Musculskeletal Surgical Hx: Orthopedic Surgery Male Surgical History: No Pertinent History Other Surgical History: operation on right lung to remove nodules(benign) bilateral knee surgeries, right shoulder surgery, removed nodules from throat. removed tumor from abdomen - Social History Smoking Status: Current every day smoker How long have you smoked: 40 years Exposure to second hand smoke: Yes Alcohol: None Drug Use: none - Social Determinants of Health Will the patient participate in the screening: Yes Do you worry about a steady place to live?: No Do you have any problems with any of the following?: No known problems In the past 12 months,have you had to go without utilities?: No Have you or anyone in your house had to go without enough: No Transportation Issues: No Has anyone in your support network made you feel unsafe?: No - Physical Exam Vital Signs: Vital Signs - 24 hr Temp Pulse Resp BP BP Pulse Ox 06/07/24 16:00 96 H 28 H 108/63 94 L 06/07/24 15:45 96 H 17 113/66 93 L 06/07/24 15:30 101 H 25 H 114/65 93 L 06/07/24 15:15 102 H 25 H 121/71 93 L 06/07/24 15:01 100 H 15 102/66 98 06/07/24 15:00 98 H 21 100 06/07/24 14:59 100 H 12 100 06/07/24 14:39 101.8 F 105 H 24 121/102 94 L 06/07/24 14:36 100 H 12 121/102 94 L General Appearance: no apparent distress Neurologic Exam: alert, oriented x 3, cooperative Eye Exam: PERRL/EOMI Ears, Nose, Throat Exam: normal ENT inspection Neck Exam: normal inspection Respiratory Exam: diminished breath sounds, wheezing Cardiovascular Exam: regular rate/rhythm, normal heart sounds Gastrointestinal/Abdomen Exam: soft Back Exam: normal inspection Extremity Exam: normal inspection Skin Exam: normal color Results - Labs Lab/Micro Results: Lab Results-Last 24 Hours 06/07/24 06/07/24 06/07/24 Range/Units 14:39 14:39 14:45 WBC 7.6 (4.23-9.07) x10^3/uL RBC 4.71 (4.63-6.08) x10^6/uL Hgb 14.3 (13.7-17.5) g/dL Hct 43.8 (40.1-51.0) % MCV 93.0 H (79.0-92.2) fL MCH 30.4 (25.7-32.2) pg MCHC 32.6 (32.3-36.5) g/dL RDW 13.2 (11.6-14.4) % Plt Count 186 (163-337) x10^3/uL MPV 11.8 (9.4-12.4) fL Gran % 67.0 (34.0-67.9) % Immature Gran % (Auto) 0.4 (0.001-0.429) % Nucleat RBC Rel Count 0.0 (0.00-0.2) % Eos # (Auto) 0.04 (0.04-0.54) x10^3/uL Immature Gran # (Auto) 0.03 (0.001-0.031) x10^3u/L Absolute Lymphs (auto) 1.38 (1.32-3.57) x10^3/uL Absolute Monos (auto) 1.00 H (0.30-0.82) x10^3/uL Absolute Nucleated RBC 0.00 (0.00-0.012) x10^3u/L Lymphocytes % 18.2 L (21.8-53.1) % Monocytes % 13.2 H (5.3-12.2) % Eosinophils % 0.5 L (0.8-7.0) % Basophils % 0.7 (0.2-1.2) % Absolute Granulocytes 5.08 (1.78-5.38) x10^3/uL Basophils # 0.05 (0.01-0.08) x10^3/uL Sodium 135 (135-145) mmol/L Potassium 4.3 (3.5-5.1) mmol/L Chloride 101 (98-107) mmol/L Carbon Dioxide 25 (22-30) mmol/L Anion Gap 12.5 (5-15) MEQ/L BUN 13 (9-20) mg/dL Creatinine 1.11 (0.66-1.25) mg/dL Estimated GFR 71.9 ML/MIN Glucose 97 (74-106) mg/dL Lactic Acid 1.1 (0.4-2.0) Calcium 9.0 (8.4-10.2) mg/dL Total Bilirubin 0.60 (0.2-1.3) mg/dL AST 26 (17-59) U/L ALT 29 (0-50) U/L Alkaline Phosphatase 75 (38-126) U/L Serum Total Protein 7.3 (6.3-8.2) g/dL Albumin 4.2 (3.5-5.0) g/dL Influenza Type A Ag (NEGATIVE) Influenza Type B Ag (NEGATIVE) RSV (PCR) (NEGATIVE) SARS-CoV-2 (PCR) (NEGATIVE) 06/07/24 Range/Units 14:45 WBC (4.23-9.07) x10^3/uL RBC (4.63-6.08) x10^6/uL Hgb (13.7-17.5) g/dL Hct (40.1-51.0) % MCV (79.0-92.2) fL MCH (25.7-32.2) pg MCHC (32.3-36.5) g/dL RDW (11.6-14.4) % Plt Count (163-337) x10^3/uL MPV (9.4-12.4) fL Gran % (34.0-67.9) % Immature Gran % (Auto) (0.001-0.429) % Nucleat RBC Rel Count (0.00-0.2) % Eos # (Auto) (0.04-0.54) x10^3/uL Immature Gran # (Auto) (0.001-0.031) x10^3u/L Absolute Lymphs (auto) (1.32-3.57) x10^3/uL Absolute Monos (auto) (0.30-0.82) x10^3/uL Absolute Nucleated RBC (0.00-0.012) x10^3u/L Lymphocytes % (21.8-53.1) % Monocytes % (5.3-12.2) % Eosinophils % (0.8-7.0) % Basophils % (0.2-1.2) % Absolute Granulocytes (1.78-5.38) x10^3/uL Basophils # (0.01-0.08) x10^3/uL Sodium (135-145) mmol/L Potassium (3.5-5.1) mmol/L Chloride (98-107) mmol/L Carbon Dioxide (22-30) mmol/L Anion Gap (5-15) MEQ/L BUN (9-20) mg/dL Creatinine (0.66-1.25) mg/dL Estimated GFR ML/MIN Glucose (74-106) mg/dL Lactic Acid (0.4-2.0) Calcium (8.4-10.2) mg/dL Total Bilirubin (0.2-1.3) mg/dL AST (17-59) U/L ALT (0-50) U/L Alkaline Phosphatase (38-126) U/L Serum Total Protein (6.3-8.2) g/dL Albumin (3.5-5.0) g/dL Influenza Type A Ag NEGATIVE (NEGATIVE) Influenza Type B Ag NEGATIVE (NEGATIVE) RSV (PCR) NEGATIVE (NEGATIVE) SARS-CoV-2 (PCR) POSITIVE A (NEGATIVE) - Radiology Impressions Radiology Exams & Impressions: Radiology Procedures Category Date Time Status CHEST 1 VIEW (PORTABLE) Stat Exams 06/07/24 14:40 Completed Assessment/Plan (1) Pneumonia Current Visit: Yes Status: Acute Assessment & Plan: -CXR with new mild left base hazy interstitial alveolar opacities -Ceftriaxone/azithromycin started in ED, will continue -RT eval -Supplemental oxygen with goal spo2 goal 89-92% -Nebs prn -ABG if significant hypoxia/lethargy -Blood cultures pending -PCT/sputum culture Code(s): J18.9 - PNEUMONIA, UNSPECIFIED ORGANISM (2) COVID-19 Current Visit: Yes Status: Acute Assessment & Plan: -Remdesivir -supportive therapies -antipyretics -isolation -lovenox Code(s): U07.1 - COVID-19 (3) COPD exacerbation Current Visit: Yes Status: Acute Assessment & Plan: -secondary to covid/pneumonia -continue ceftriaxone/azithromycin -Nebs prn -solumedrol -Continue home trelegy - will bring in Code(s): J44.1 - CHRONIC OBSTRUCTIVE PULMONARY DISEASE W (ACUTE) EXACERBATION (4) HLD (hyperlipidemia) Current Visit: Yes Status: Acute Assessment & Plan: -Continue statin Code(s): E78.5 - HYPERLIPIDEMIA, UNSPECIFIED (5) GERD (gastroesophageal reflux disease) Current Visit: Yes Status: Acute Assessment & Plan: -Continue famotidine Code(s): K21.9 - GASTRO-ESOPHAGEAL REFLUX DISEASE WITHOUT ESOPHAGITIS (6) ELLA (obstructive sleep apnea) Current Visit: Yes Status: Acute Assessment & Plan: -CPAP Code(s): G47.33 - OBSTRUCTIVE SLEEP APNEA (ADULT) (PEDIATRIC) (7) Smoker Current Visit: Yes Status: Acute Assessment & Plan: -1/2 pack a day - trying to quit -declines nicotine patch Code(s): F17.200 - NICOTINE DEPENDENCE, UNSPECIFIED, UNCOMPLICATED (8) Anxiety Current Visit: Yes Status: Acute Assessment & Plan: -continue home alprazolam -prn up to TID daily VTE: lovenox PPI: protonix Dispo: 1-2 days Code status: SCO Code(s): F41.9 - ANXIETY DISORDER, UNSPECIFIED Telemedicine Encounter - Telemedicine Encounter Telemedicine Encounter: "The entirety of this encounter was performed via Telemedicine" This visit was performed using real-time audio and video connection between my location and thepatients locationwith the assistance of a surrogateat the patients location. Written or verbal consent was obtained from the patient/guardian to perform this visit usingsynchronoustelemedicine technology. Any patient questions regarding the telemedicine interaction were answered.
[2024-06-07] MEDS ORDERED: TYLENOL 325 MG PO PRN (17:56)
[2024-06-07] MEDS ORDERED: Zofran 4 MG/2 ML VIAL IV PRN (17:56)
[2024-06-07] MEDS ORDERED: HYDROCODONE-CHLORPHEN ER SUSP PO PRN (17:56)
[2024-06-07] MEDS ORDERED: DUONEB 0.5-3 MG/3 ml Neb IH PRN (18:08)
[2024-06-07] MEDS ORDERED: Sodium Chloride 0.9% 250 ML 250 ML IV ONE (18:42)
[2024-06-07] MEDS ORDERED: REMDESIVIR IV ONE (18:44)
[2024-06-07] MEDS: Rocephin 1000 MG INJ** 1,000 MG in Sodium Chloride 100ML MINI-BAG PLUS 100 ML IV SCH (19:03)
[2024-06-07] MEDS: REMDESIVIR 200 MG in Sodium Chloride 0.9% 250 ML 250 ML IV ONE (19:08)
[2024-06-07] MEDS: xanAX 0.5 MG PO PRN (19:25)
[2024-06-07] MEDS: ZOCOR 20MG PO SCH (19:25)
[2024-06-07 20:39] LABS: Appearance Clear (Clear); Bacteria None Seen /HPF (None Seen); Bilirubin Negative (Negative); Blood Negative (Negative); Epithelial Cells None Seen /HPF (None Seen); Glucose, Urine Negative (Negative); Hyaline Casts NONE SEEN /LPF (0-2); Ketones Negative (Negative); Leukocyte Esterase Negative (Negative); Nitrite Negative (Negative); Protein,Urine Dip Negative (Negative); RBC 0-2 /HPF (0-5); WBC 0-2 /HPF (0-5)
[2024-06-07 20:40] LABS: ADD URINE CULTURE? NO (NO)
[2024-06-07] MEDS ORDERED: NON-FORMULARY ITEM (Atorvastatin Calcium 20 MG Tab) PO SCH (22:00)
[2024-06-08 04:45] LABS: Absolute Neutrophil Ct (ANC) 7.66 x10^3/uL (1.78-5.38); BASOPHIL % 0.1 % (0.2-1.2); Basophil (Absolute #) 0.01 x10^3/uL (0.01-0.08); Eosinophil % 0.1 % (0.8-7.0); Eosinophil (Absolute #) 0.01 x10^3/uL (0.04-0.54); Hematocrit 42.3 % (40.1-51.0); Hemoglobin 13.9 g/dL (13.7-17.5); IMMATURE GRAN # 0.08 x10^3u/L (0.001-0.031); IMMATURE GRAN % 0.9 % (0.001-0.429); Lymphocyte (Absolute #) 1.17 x10^3/uL (1.32-3.57); Lymphocytes % 12.7 % (21.8-53.1); Mean Cell Volume 91.8 fL (79.0-92.2); Mean Corpuscular Hemoglobin 30.2 pg (25.7-32.2); Mean Corpuscular Hgb Concent. 32.9 g/dL (32.3-36.5); Mean Platelet Volume 12.3 fL (9.4-12.4); Monocyte (Absolute #) 0.29 x10^3/uL (0.30-0.82); Monocytes % 3.1 % (5.3-12.2); Neutrophil % 83.1 % (34.0-67.9); Platelet Count 199 x10^3/uL (163-337); Red Blood Count 4.61 x10^6/uL (4.63-6.08); Red Cell Distribution Width 13.6 % (11.6-14.4); White Blood Count 9.2 x10^3/uL (4.23-9.07)
[2024-06-08 05:12] LABS: ALBUMIN 3.9 g/dL (3.5-5.0); ANION GAP 13.7 MEQ/L (5-15); BILIRUBIN,TOTAL 0.4 mg/dL (0.2-1.3); Calcium 8.6 mg/dL (8.4-10.2); Creatinine 1 0.76 mg/dL (0.66-1.25); EST GLOMERULAR FILTRATION RATE 97.3 ML/MIN; MAGNESIUM 2.1 mg/dL (1.6-2.3); Potassium 4.1 mmol/L (3.5-5.1); Total Protein 6.8 g/dL (6.3-8.2)
--- NOTE | 2024-06-08 05:20 | PCM.NOTE ---
Date and Time: 06/08/24517 Subjective Assessment: HPI: is a 68 year old male with a pmhx of HLD, COPD , GERD, and anxiety who presented to ED 06/07/24 with complaints of a one day history of fever, chills, and shortness of breath. Patient reports that he started with body aches yesterday evening and by this morning he has fever and chills. He also endorses a mild headache, dizziness, a productive cough with yellow sputum and wheezing on expiration. Denies cp, abdominal pain, N/V/D. Upon arrival to ED, patient was tachycardic, hypertensive and febrile at 101.8. CXR demonstrates a new mild left base hazy interstitial alveolar opacities. Chemistry and CBC unremarkable. Covid testing positive. Admission for COVID pneumonia. Patient received ceftriaxone/azithromycin and solumedrol in ED. Will continue antibiotics, steroids, and remdesivir. 06/08/24: Patient doing well today. Dyspnea and cough have improved. Lung sounds diminished with exp wheezing on auscultation. Patient endorses continued weakness. Afebrile overnight. Plan to continue remdesivir/ceftriaxone/azithromycin. Discontinue solumedrol - change to prednisone. Pending treatment response, can most likely discharge tomorrow. - Review of Systems Constitutional: Weakness Eyes: No Symptoms Ears, Nose, & Throat: No Symptoms Respiratory: Cough, Short Of Breath Cardiac: No Symptoms Abdominal/Gastrointestinal: No Symptoms Genitourinary Symptoms: No Symptoms Musculoskeletal: No Symptoms Skin: No Symptoms Neurological: No Symptoms Psychological: No Symptoms Endocrine: No Symptoms Hematologic/Lymphatic: No Symptoms Immunological/Allergic: No Symptoms Objective Exam General Appearance: no apparent distress Neurologic Exam: alert, oriented x 3, cooperative Skin Exam: normal color Eye Exam: PERRL Ears, Nose, Throat Exam: normal ENT inspection Neck Exam: normal inspection Respiratory Exam: diminished breath sounds, wheezing Cardiovascular Exam: regular rate/rhythm Gastrointestinal/Abdomen Exam: soft, normal bowel sounds Extremity Exam: normal inspection Back Exam: normal inspection Male Genitalia Exam: deferred Rectal Exam: deferred Objective Data Vital Signs: Vital Signs - 24 hr Temp Pulse Resp BP BP Pulse Ox 06/08/24 04:00 97.1 F 90 17 143/73 98 06/08/24 02:00 66 14 99 06/08/24 00:00 97.9 F 94 H 14 127/69 96 06/07/24 21:58 81 20 96 06/07/24 21:57 20 06/07/24 20:36 77 18 94 L 06/07/24 19:37 14 06/07/24 18:50 82 16 93 L 06/07/24 18:00 98.2 F 90 94 H 122/68 06/07/24 16:00 96 H 28 H 108/63 94 L 06/07/24 15:45 96 H 17 113/66 93 L 06/07/24 15:30 101 H 25 H 114/65 93 L 06/07/24 15:15 102 H 25 H 121/71 93 L 06/07/24 15:01 100 H 15 102/66 98 06/07/24 15:00 98 H 21 100 06/07/24 14:59 100 H 12 100 06/07/24 14:39 101.8 F 105 H 24 121/102 94 L 06/07/24 14:36 100 H 12 121/102 94 L Pain Assessment - Last Documented Pain Intensity 0 Pain Scale Used 0-10 Pain Scale Intake and Output: Intake & Output 06/05/24 06/06/24 06/07/24 06/08/24 11:59 11:59 11:59 11:59 Intake Total 730 Output Total 400 Balance 330 Weight 76.3 kg Lab Results: Lab Results-Last 24 Hours 06/07/24 06/07/24 06/07/24 Range/Units 14:39 14:39 14:39 WBC 7.6 (4.23-9.07) x10^3/uL RBC 4.71 (4.63-6.08) x10^6/uL Hgb 14.3 (13.7-17.5) g/dL Hct 43.8 (40.1-51.0) % MCV 93.0 H (79.0-92.2) fL MCH 30.4 (25.7-32.2) pg MCHC 32.6 (32.3-36.5) g/dL RDW 13.2 (11.6-14.4) % Plt Count 186 (163-337) x10^3/uL MPV 11.8 (9.4-12.4) fL Gran % 67.0 (34.0-67.9) % Immature Gran % (Auto) 0.4 (0.001-0.429) % Nucleat RBC Rel Count 0.0 (0.00-0.2) % Eos # (Auto) 0.04 (0.04-0.54) x10^3/uL Immature Gran # (Auto) 0.03 (0.001-0.031) x10^3u/L Absolute Lymphs (auto) 1.38 (1.32-3.57) x10^3/uL Absolute Monos (auto) 1.00 H (0.30-0.82) x10^3/uL Absolute Nucleated RBC 0.00 (0.00-0.012) x10^3u/L Lymphocytes % 18.2 L (21.8-53.1) % Monocytes % 13.2 H (5.3-12.2) % Eosinophils % 0.5 L (0.8-7.0) % Basophils % 0.7 (0.2-1.2) % Absolute Granulocytes 5.08 (1.78-5.38) x10^3/uL Basophils # 0.05 (0.01-0.08) x10^3/uL Sodium (135-145) mmol/L Potassium (3.5-5.1) mmol/L Chloride (98-107) mmol/L Carbon Dioxide (22-30) mmol/L Anion Gap (5-15) MEQ/L BUN (9-20) mg/dL Creatinine (0.66-1.25) mg/dL Estimated GFR ML/MIN Glucose (74-106) mg/dL Lactic Acid 1.1 (0.4-2.0) Calcium (8.4-10.2) mg/dL Magnesium (1.6-2.3) mg/dL Total Bilirubin (0.2-1.3) mg/dL AST (17-59) U/L ALT (0-50) U/L Alkaline Phosphatase (38-126) U/L Serum Total Protein (6.3-8.2) g/dL Albumin (3.5-5.0) g/dL Urine Color Yellow (Yellow) Urine Appearance Clear (Clear) Urine pH 5.0 (4.6-8.0) Ur Specific Meacham 1.010 (1.005-1.030) Urine Protein Negative (Negative) Urine Glucose (UA) Negative (Negative) mg/dL Urine Ketones Negative (Negative) Urine Blood Negative (Negative) Urine Nitrite Negative (Negative) Urine Bilirubin Negative (Negative) Urine Urobilinogen 1.0 A (0.2) mg/dL Ur Leukocyte Esterase Negative (Negative) U Hyaline Cast (Auto) NONE SEEN (0-2) /LPF Urine Microscopic RBC 0-2 (0-5) /HPF Urine Microscopic WBC 0-2 (0-5) /HPF Ur Epithelial Cells None Seen (None Seen) /HPF Urine Bacteria None Seen (None Seen) /HPF Urine Culture Reflexed NO (NO) Influenza Type A Ag (NEGATIVE) Influenza Type B Ag (NEGATIVE) RSV (PCR) (NEGATIVE) SARS-CoV-2 (PCR) (NEGATIVE) 06/07/24 06/07/24 06/07/24 Range/Units 14:39 14:45 14:45 WBC (4.23-9.07) x10^3/uL RBC (4.63-6.08) x10^6/uL Hgb (13.7-17.5) g/dL Hct (40.1-51.0) % MCV (79.0-92.2) fL MCH (25.7-32.2) pg MCHC (32.3-36.5) g/dL RDW (11.6-14.4) % Plt Count (163-337) x10^3/uL MPV (9.4-12.4) fL Gran % (34.0-67.9) % Immature Gran % (Auto) (0.001-0.429) % Nucleat RBC Rel Count (0.00-0.2) % Eos # (Auto) (0.04-0.54) x10^3/uL Immature Gran # (Auto) (0.001-0.031) x10^3u/L Absolute Lymphs (auto) (1.32-3.57) x10^3/uL Absolute Monos (auto) (0.30-0.82) x10^3/uL Absolute Nucleated RBC (0.00-0.012) x10^3u/L Lymphocytes % (21.8-53.1) % Monocytes % (5.3-12.2) % Eosinophils % (0.8-7.0) % Basophils % (0.2-1.2) % Absolute Granulocytes (1.78-5.38) x10^3/uL Basophils # (0.01-0.08) x10^3/uL Sodium 135 (135-145) mmol/L Potassium 4.3 (3.5-5.1) mmol/L Chloride 101 (98-107) mmol/L Carbon Dioxide 25 (22-30) mmol/L Anion Gap 12.5 (5-15) MEQ/L BUN 13 (9-20) mg/dL Creatinine 1.11 (0.66-1.25) mg/dL Estimated GFR 71.9 ML/MIN Glucose 97 (74-106) mg/dL Lactic Acid (0.4-2.0) Calcium 9.0 (8.4-10.2) mg/dL Magnesium 1.7 (1.6-2.3) mg/dL Total Bilirubin 0.60 (0.2-1.3) mg/dL AST 26 (17-59) U/L ALT 29 (0-50) U/L Alkaline Phosphatase 75 (38-126) U/L Serum Total Protein 7.3 (6.3-8.2) g/dL Albumin 4.2 (3.5-5.0) g/dL Urine Color (Yellow) Urine Appearance (Clear) Urine pH (4.6-8.0) Ur Specific [place] (1.005-1.030) Urine Protein (Negative) Urine Glucose (UA) (Negative) mg/dL Urine Ketones (Negative) Urine Blood (Negative) Urine Nitrite (Negative) Urine Bilirubin (Negative) Urine Urobilinogen (0.2) mg/dL Ur Leukocyte Esterase (Negative) U Hyaline Cast (Auto) (0-2) /LPF Urine Microscopic RBC (0-5) /HPF Urine Microscopic WBC (0-5) /HPF Ur Epithelial Cells (None Seen) /HPF Urine Bacteria (None Seen) /HPF Urine Culture Reflexed (NO) Influenza Type A Ag NEGATIVE (NEGATIVE) Influenza Type B Ag NEGATIVE (NEGATIVE) RSV (PCR) NEGATIVE (NEGATIVE) SARS-CoV-2 (PCR) POSITIVE A (NEGATIVE) Radiology Exams: Radiology Procedures Category Date Time Status CHEST 1 VIEW (PORTABLE) Stat Exams 06/07/24 14:40 Completed Assessment/Plan (1) Pneumonia Current Visit: Yes Status: Acute Assessment & Plan: -CXR with new mild left base hazy interstitial alveolar opacities -Ceftriaxone/azithromycin started in ED, will continue -RT eval -Supplemental oxygen with goal spo2 goal 89-92% -Nebs prn -ABG if significant hypoxia/lethargy -Blood cultures pending -PCT/sputum culture 06/08: -dc solumedrol - add prednisone 20mg bid -bcult/sputum cult pending Code(s): J18.9 - PNEUMONIA, UNSPECIFIED ORGANISM (2) COVID-19 Current Visit: Yes Status: Acute Assessment & Plan: -Remdesivir -supportive therapies -antipyretics -isolation -lovenox Code(s): U07.1 - COVID-19 (3) COPD exacerbation Current Visit: Yes Status: Acute Assessment & Plan: -secondary to covid/pneumonia -continue ceftriaxone/azithromycin -Nebs prn -solumedrol -Continue home trelegy - will bring in Code(s): J44.1 - CHRONIC OBSTRUCTIVE PULMONARY DISEASE W (ACUTE) EXACERBATION (4) HLD (hyperlipidemia) Current Visit: Yes Status: Acute Assessment & Plan: -Continue statin Code(s): E78.5 - HYPERLIPIDEMIA, UNSPECIFIED (5) GERD (gastroesophageal reflux disease) Current Visit: Yes Status: Acute Assessment & Plan: -Continue famotidine Code(s): K21.9 - GASTRO-ESOPHAGEAL REFLUX DISEASE WITHOUT ESOPHAGITIS (6) ELLA (obstructive sleep apnea) Current Visit: Yes Status: Acute Assessment & Plan: -CPAP Code(s): G47.33 - OBSTRUCTIVE SLEEP APNEA (ADULT) (PEDIATRIC) (7) Smoker Current Visit: Yes Status: Acute Assessment & Plan: -1/2 pack a day - trying to quit -declines nicotine patch Code(s): F17.200 - NICOTINE DEPENDENCE, UNSPECIFIED, UNCOMPLICATED (8) Anxiety Current Visit: Yes Status: Acute Assessment & Plan: -continue home alprazolam -prn up to TID daily VTE: lovenox PPI: protonix Dispo: 1-2 days Code status: SCO Code(s): F41.9 - ANXIETY DISORDER, UNSPECIFIED Code(s): J18.9 - PNEUMONIA, UNSPECIFIED ORGANISM (2) COVID-19 Current Visit: Yes Status: Acute Code(s): U07.1 - COVID-19 (3) COPD exacerbation Current Visit: Yes Status: Acute Code(s): J44.1 - CHRONIC OBSTRUCTIVE PULMONARY DISEASE W (ACUTE) EXACERBATION (4) HLD (hyperlipidemia) Current Visit: Yes Status: Acute Code(s): E78.5 - HYPERLIPIDEMIA, UNSPECIFIED (5) GERD (gastroesophageal reflux disease) Current Visit: Yes Status: Acute Code(s): K21.9 - GASTRO-ESOPHAGEAL REFLUX DISEASE WITHOUT ESOPHAGITIS (6) ELLA (obstructive sleep apnea) Current Visit: Yes Status: Acute Code(s): G47.33 - OBSTRUCTIVE SLEEP APNEA (ADULT) (PEDIATRIC) (7) Smoker Current Visit: Yes Status: Acute Code(s): F17.200 - NICOTINE DEPENDENCE, UNSPECIFIED, UNCOMPLICATED (8) Anxiety Current Visit: Yes Status: Acute Code(s): F41.9 - ANXIETY DISORDER, UNSPECIFIED
[2024-06-08] MEDS ORDERED: MEDICATION INTERVENTION MC SCH (07:15)
[2024-06-08] MEDS ORDERED: Rocephin 1000 MG INJ** 1,000 MG in Sodium Chloride 100ML MINI-BAG PLUS 100 ML IV SCH (10:00)
[2024-06-08] MEDS ORDERED: NON-FORMULARY ITEM (Fluticasone/Umeclidin/Vilanter [Trelegy Ellipta 100-62.5-25] 1 EACH Bl PO SCH (10:00)
[2024-06-08] MEDS ORDERED: solu-MEDROL ONE (10:23)
[2024-06-08] MEDS ORDERED: Zithromax 500 MG/ 250 ML NaCl Premix 500 MG/250 ML IVPB IV ONE (10:23)
[2024-06-08] MEDS ORDERED: ROCEPHIN 1 GM / 100 ML NaCl 1 GM/100 ML IVPB IV ONE (10:23)
[2024-06-08] MEDS ORDERED: PROTONIX 40 MG IV IV ONE (10:23)
[2024-06-08] MEDS ORDERED: Sterile H2O 10 ml IJ ONE (10:23)
[2024-06-08] MEDS: ROCEPHIN 1 GM / 100 ML NaCl 1 GM/100 ML IVPB IV SCH (10:32)
[2024-06-08] MEDS: PROTONIX 40 MG IV IV SCH (10:33)
[2024-06-08] MEDS: solu-MEDROL 40 MG, Sterile H2O 10 ml 1 ML IV SCH (10:33)
[2024-06-08] MEDS: Zithromax 500 MG/ 250 ML NaCl Premix 500 MG/250 ML IVPB IV SCH (10:33)
[2024-06-08] MEDS: ENOXAPARIN SODIUM SQ SCH (11:33)
[2024-06-08] MEDS: REMDESIVIR 100 MG in Sodium Chloride 100ML MINI-BAG PLUS 100 ML IV SCH (18:20)
[2024-06-08] MEDS: DELTASONE 20 MG PO SCH (19:08)
[2024-06-09 05:08] LABS: Absolute Neutrophil Ct (ANC) 13.33 x10^3/uL (1.78-5.38); BASOPHIL % 0.2 % (0.2-1.2); Basophil (Absolute #) 0.03 x10^3/uL (0.01-0.08); Eosinophil (Absolute #) 0 x10^3/uL (0.04-0.54); Hematocrit 44.9 % (40.1-51.0); Hemoglobin 14.5 g/dL (13.7-17.5); IMMATURE GRAN # 0.15 x10^3u/L (0.001-0.031); IMMATURE GRAN % 0.9 % (0.001-0.429); Lymphocyte (Absolute #) 2.11 x10^3/uL (1.32-3.57); Lymphocytes % 12.8 % (21.8-53.1); Mean Cell Volume 94.1 fL (79.0-92.2); Mean Corpuscular Hemoglobin 30.4 pg (25.7-32.2); Mean Corpuscular Hgb Concent. 32.3 g/dL (32.3-36.5); Mean Platelet Volume 12.1 fL (9.4-12.4); Monocyte (Absolute #) 0.88 x10^3/uL (0.30-0.82); Monocytes % 5.3 % (5.3-12.2); Neutrophil % 80.8 % (34.0-67.9); Platelet Count 191 x10^3/uL (163-337); Red Blood Count 4.77 x10^6/uL (4.63-6.08); Red Cell Distribution Width 13.3 % (11.6-14.4); White Blood Count 16.5 x10^3/uL (4.23-9.07)
--- NOTE | 2024-06-09 05:14 | PCM.DS ---
Discharge Summary Date of Admission: 06/07/24 17:25 Date of Discharge: 06/09/24 Admitting Physician: GREGORIO SHAH MD Primary Care Provider: CHARI ALANIZ Allergies Allergies No Known Drug Allergies Allergy (Verified 06/07/24 14:36) Hospital Summary - Hospital Course Hospital Course: is a 68 year old male with a pmhx of HLD, COPD , GERD, and anxiety who presented to ED 06/07/24 with complaints of a one day history of fever, chills, and shortness of breath. Patient reports that he started with body aches yesterday evening and by this morning he has fever and chills. He also endorses a mild headache, dizziness, a productive cough with yellow sputum and wheezing on expiration. Denies cp, abdominal pain, N/V/D. Upon arrival to ED, patient was tachycardic, hypertensive and febrile at 101.8. CXR demonstrates a new mild left base hazy interstitial alveolar opacities. Chemistry and CBC unremarkable. Covid testing positive. Admission for COVID pneumonia. IP treatment with ceftriaxone/azithromycin/remdesivir and steroid. Dyspnea/cough have improved. Patient remains afebrile. Weakness improved. On baseline RA. Discharge Note New Diagnosis: COVID pneumonia New Medications: cefpodoxime/prednisone Follow Up: PCP Latest Assessment & Plan (1) Pneumonia Current Visit: Yes Status: Acute Assessment & Plan: -CXR with new mild left base hazy interstitial alveolar opacities -Ceftriaxone/azithromycin started in ED, will continue -RT eval -Supplemental oxygen with goal spo2 goal 89-92% -Nebs prn -ABG if significant hypoxia/lethargy -Blood cultures pending -PCT/sputum culture 06/08: -dc solumedrol - add prednisone 20mg bid -bcult/sputum cult pending Code(s): J18.9 - PNEUMONIA, UNSPECIFIED ORGANISM (2) COVID-19 Current Visit: Yes Status: Acute Assessment & Plan: -Remdesivir -supportive therapies -antipyretics -isolation -lovenox Code(s): U07.1 - COVID-19 (3) COPD exacerbation Current Visit: Yes Status: Acute Assessment & Plan: -secondary to covid/pneumonia -continue ceftriaxone/azithromycin -Nebs prn -solumedrol -Continue home trelegy - will bring in Code(s): J44.1 - CHRONIC OBSTRUCTIVE PULMONARY DISEASE W (ACUTE) EXACERBATION (4) HLD (hyperlipidemia) Current Visit: Yes Status: Acute Assessment & Plan: -Continue statin Code(s): E78.5 - HYPERLIPIDEMIA, UNSPECIFIED (5) GERD (gastroesophageal reflux disease) Current Visit: Yes Status: Acute Assessment & Plan: -Continue famotidine Code(s): K21.9 - GASTRO-ESOPHAGEAL REFLUX DISEASE WITHOUT ESOPHAGITIS (6) ELLA (obstructive sleep apnea) Current Visit: Yes Status: Acute Assessment & Plan: -CPAP Code(s): G47.33 - OBSTRUCTIVE SLEEP APNEA (ADULT) (PEDIATRIC) (7) Smoker Current Visit: Yes Status: Acute Assessment & Plan: -1/2 pack a day - trying to quit -declines nicotine patch Code(s): F17.200 - NICOTINE DEPENDENCE, UNSPECIFIED, UNCOMPLICATED (8) Anxiety Current Visit: Yes Status: Acute Assessment & Plan: -continue home alprazolam -prn up to TID daily VTE: lovenox PPI: protonix Dispo: 1-2 days Code status: SCO I spent 35 minutes [id number] with the patient on the day of discharge performing discharge exam, discussing hospital stay and discharge instructions with patient and caregivers, preparation of discharge records, prescriptions & referral forms and addressing any questions/concerns the patient had as documented above. - Vitals & Intake/Output Vital Signs: Vital Signs Temperature 97.1 F 06/09/24 03:51 Pulse Rate 67 06/09/24 03:51 Respiratory Rate 20 06/09/24 04:00 Blood Pressure 149/85 06/09/24 03:51 O2 Sat by Pulse Oximetry 96 06/09/24 03:51 Intake & Output: Intake & Output 06/06/24 06/07/24 06/08/24 06/09/24 11:59 11:59 11:59 11:59 Intake Total 1210 960 Output Total 400 Balance 810 960 Weight 76.3 kg - Lab Result Diagrams: 06/09/24 04:45 06/09/24 04:45 Lab Results-Last 24 Hrs: Lab Results-Last 24 Hours 06/08/24 06/08/24 Range/Units 04:19 04:19 WBC 9.2 H (4.23-9.07) x10^3/uL RBC 4.61 L (4.63-6.08) x10^6/uL Hgb 13.9 (13.7-17.5) g/dL Hct 42.3 (40.1-51.0) % MCV 91.8 (79.0-92.2) fL MCH 30.2 (25.7-32.2) pg MCHC 32.9 (32.3-36.5) g/dL RDW 13.6 (11.6-14.4) % Plt Count 199 (163-337) x10^3/uL MPV 12.3 (9.4-12.4) fL Gran % 83.1 H (34.0-67.9) % Immature Gran % (Auto) 0.9 H (0.001-0.429) % Nucleat RBC Rel Count 0.0 (0.00-0.2) % Eos # (Auto) 0.01 L (0.04-0.54) x10^3/uL Immature Gran # (Auto) 0.08 H (0.001-0.031) x10^3u/L Absolute Lymphs (auto) 1.17 L (1.32-3.57) x10^3/uL Absolute Monos (auto) 0.29 L (0.30-0.82) x10^3/uL Absolute Nucleated RBC 0.00 (0.00-0.012) x10^3u/L Lymphocytes % 12.7 L (21.8-53.1) % Monocytes % 3.1 L (5.3-12.2) % Eosinophils % 0.1 L (0.8-7.0) % Basophils % 0.1 L (0.2-1.2) % Absolute Granulocytes 7.66 H (1.78-5.38) x10^3/uL Basophils # 0.01 (0.01-0.08) x10^3/uL Sodium 135 (135-145) mmol/L Potassium 4.1 (3.5-5.1) mmol/L Chloride 105 (98-107) mmol/L Carbon Dioxide 20 L (22-30) mmol/L Anion Gap 13.7 (5-15) MEQ/L BUN 16 (9-20) mg/dL Creatinine 0.76 (0.66-1.25) mg/dL Estimated GFR 97.3 ML/MIN Glucose 197 H (74-106) mg/dL Calcium 8.6 (8.4-10.2) mg/dL Magnesium 2.1 (1.6-2.3) mg/dL Total Bilirubin 0.40 (0.2-1.3) mg/dL AST 25 (17-59) U/L ALT 31 (0-50) U/L Alkaline Phosphatase 78 (38-126) U/L Serum Total Protein 6.8 (6.3-8.2) g/dL Albumin 3.9 (3.5-5.0) g/dL - Radiology Exams Ordered Rad Exams-Entire Visit: Radiology Procedures Category Date Time Status CHEST 1 VIEW (PORTABLE) Stat Exams 06/07/24 14:40 Completed - Procedures and Test Procedures and Tests throughout Hospitalization: Therapy Orders & Screens 06/07/24 14:58 Respiratory Therapy Assessment DAILY Comment: 06/07/24 17:56 Respiratory Therapy Consult ROUTINE Comment: Reason For Exam: Diagnosis: COVID 19 positive, pneumonia, COPD exacerbation 06/07/24 18:13 RT Screen per Nursing Assess ONCE Comment: Protocol Order Physician Instructions: Greater than 3 points order RT Admission Screen Reason For Exam: Triggered on Admission Diagnosis: COVID 19 positive, pneumonia, COPD exacerbation Diagnosis: COVID 19 positive, pneumonia, COPD exacerbation Pneumonia: Yes Home O2: No Asthma: No Home CPAP/BIPAP: Yes Home Nebs/MDI: No Total Points: 8 Smoking Cessation Education ONCE Comment: Diagnosis: COVID 19 positive, pneumonia, COPD exacerbation Smoking Status: Current every day smoker How long have you smoked: 40 years Have you smoked in the past 12 months: Yes Approximately how many cigarettes per day: 10 Do you dip or chew tobacco: No If,Former Smoker,when did you quit: [address] Screen per Nursing Assess ONCE Comment: Protocol Order Physician Instructions: Greater than [address] Admission Screening Reason For Exam: Triggered on Admission Diagnosis: COVID 19 positive, pneumonia, COPD exacerbation CVA/Dyshpagia/Aphasia: No Cognitive Deficits: No Dehydration/Nutrition Deficit: No Reflux: No Oral-Motor Difficulties: No Pneumonia: Yes Fdc Resident: No Total Points: 5 06/07/24 19:58 Respiratory Therapy Assessment DAILY Comment: Diagnosis: COVID 19 positive, pneumonia, COPD exacerbation Discharge Exam General Appearance: no apparent distress Neurologic Exam: alert, oriented x 3, cooperative Eye Exam: PERRL Ears, Nose, Throat Exam: normal ENT inspection Neck Exam: normal inspection Respiratory Exam: diminished breath sounds Cardiovascular Exam: regular rate/rhythm, normal heart sounds Gastrointestinal/Abdomen Exam: soft, normal bowel sounds Male Genitalia Exam: deferred Rectal Exam: deferred Back Exam: normal inspection Extremity Exam: normal inspection Skin Exam: normal color Final Diagnosis/Problem List - Final Discharge Diagnosis/Problem (1) Pneumonia Current Visit: Yes Status: Acute Code(s): J18.9 - PNEUMONIA, UNSPECIFIED ORGANISM (2) COVID-19 Current Visit: Yes Status: Acute Code(s): U07.1 - COVID-19 (3) COPD exacerbation Current Visit: Yes Status: Acute Code(s): J44.1 - CHRONIC OBSTRUCTIVE PULMONARY DISEASE W (ACUTE) EXACERBATION (4) HLD (hyperlipidemia) Current Visit: Yes Status: Acute Code(s): E78.5 - HYPERLIPIDEMIA, UN SPECIFIED (5) GERD (gastroesophageal reflux disease) Current Visit: Yes Status: Acute Code(s): K21.9 - GASTRO-ESOPHAGEAL REFLUX DISEASE WITHOUT ESOPHAGITIS (6) ELLA (obstructive sleep apnea) Current Visit: Yes Status: Acute Code(s): G47.33 - OBSTRUCTIVE SLEEP APNEA (ADULT) (PEDIATRIC) (7) Smoker Current Visit: Yes Status: Acute Code(s): F17.200 - NICOTINE DEPENDENCE, UNSPECIFIED, UNCOMPLICATED (8) Anxiety Current Visit: Yes Status: Acute Code(s): F41.9 - ANXIETY DISORDER, UNSPECIFIED - Discharge Disposition: Home, Self-Care Condition: Stable Prescriptions: New Prednisone 20 mg [Deltasone 20 mg] 20 mg PO BID 5 Days #10 tablet Cefpodoxime Proxetil 200 mg [Vantin 200 mg] 200 mg PO BID 7 Days #14 tablet Continue Atorvastatin Calcium [Lipitor 20MG Tablet] 20 mg PO HS ALPRAZolam [Alprazolam] 0.5 mg PO BID PRN PRN PRN Reason: Anxiety Fluticasone/Umeclidin/Vilanter [Trelegy Ellipta 100-62.5-25] 1 puff PO DAILY Instructions: COVID- ED Follow up with: CHARI ALANIZ MD [Primary Care Provider] - 06/23/24 2:30 pm
[2024-06-09 05:31] LABS: ANION GAP 14.9 MEQ/L (5-15); BILIRUBIN,TOTAL 0.3 mg/dL (0.2-1.3); Calcium 8.9 mg/dL (8.4-10.2); Creatinine 1 0.93 mg/dL (0.66-1.25); EST GLOMERULAR FILTRATION RATE 88.9 ML/MIN
[2024-06-09 14:49] VITALS: BP 151/86; PULSE 86; RESP 23; TEMP 98; O2SAT 93
== END 2024-06-09 12:25 | disposition home or self-care (01) | DRG 193 ==
LOC: ED 14:28 → MED SURG 17:25 → OBSVTOIN 17:25
PROVIDERS: ADMIT Internal Medicine; ATTEND Internal Medicine
DX: J18.9 Pneumonia, unspecified organism (principal); U07.1 COVID-19; J44.1 Chronic obstructive pulmonary disease with (acute) exacerbation; E78.5 Hyperlipidemia, unspecified; K21.9 Gastro-esophageal reflux disease without esophagitis; F41.9 Anxiety disorder, unspecified; G47.33 Obstructive sleep apnea (adult) (pediatric); F17.200 Nicotine dependence, unspecified, uncomplicated; Z79.899 Other long term (current) drug therapy
CPT/HCPCS: 0241U; 36000; 36415; 71045; 80053; 81001; 83605; 83735; 85025; 87040; 93005; 93041; 94640; 94760; 94762; 96360; 96361; 96365; 96368; 96374; 99285; J0248; J0456; J0696; J1650; J2919; A9270-GY